=== PATIENT | female | born 1940 | race Caucasian/White ===

== ENCOUNTER 2016-12-07 17:06 | Inpatient (IN) | payer MEDICARE ==
[2016-12-07] MEDS ORDERED: Fentanyl 100 MCG/2 ML VIAL ONE (17:29)
[2016-12-07 18:37] LABS: #Basophils 0.1 thou/uL (0.0-0.2); #Eosinphils 0.3 thou/uL (0.0-0.7); #Lymphocytes 0.9 thou/uL (1.20-3.40); #Monocytes 0.5 thou/uL (0.11-0.59); #Neutrophils 4.8 thou/uL (1.40-6.50); %Basophils 0.9 % (0.0-1.0); %Eosinophils 4.3 % (0.0-10.0); %Lymphocytes 14.2 % (21.0-51.0); %Monocytes 6.9 % (0.0-10.0); Mean Platelet Volume 7.9 fL (7.4-10.4); Red Blood Cell (RBC) Count 4.34 mill/uL (4.20-5.40); White Blood Cell (WBC) Count 6.5 thou/uL (4.8-10.8)
[2016-12-07 18:53] LABS: ALT (SGPT) Less than 7 U/L (8-55); AST (SGOT) 13 U/L (5-34); Alkaline Phosphatase 133 U/L (40-150); Anion Gap 13 mmol/L (10-20); BUN (Urea Nitrogen) 14 mg/dL (9.8-20.1); Calc. Creatinine Clearance 0 mL/min (70-130); Calcium 8.9 mg/dL (7.8-10.44); Carbon Dioxide 31 mmol/L (23-31); Chloride 99 mmol/L (98-107); Estimated GFR-MDRD 87; Globulin 2.8 g/dL (2.4-3.5); Protein, Total 6.2 g/dL (6.0-8.3)
[2016-12-07] MEDS ORDERED: Bisacodyl 10 MG SUPP ONE (19:10)
[2016-12-07] MEDS ORDERED: Pot Chloride/Pot Bicarb/Cit Ac 25 mEq Effervescent Tablet ONE ×2 (19:11)
--- NOTE | 2016-12-07 19:20 | RAD ---
RADIOGRAPH PELVIS ONE VIEW: Date: 12-07-16 History: 76-year-old female with acute traumatic right hip pain due to fall. Comparison: 11-11-11 FINDINGS: There is a new, subtle finding of focal angulation at the lateral aspect of the right subcapital fem oral neck. The right femoral head contour is maintained. There is no dislocation. Left hip replaceme nt arthroplasty hardware is again noted. There is diffuse, somewhat severe osteopenia, and a large a mount of overlying bowel gas and stool which could result in a missed pelvic fracture, especially of the sacrum. No grossly displaced pelvic fracture is identified. There has been interval development of heterotopic ossification or myositis ossificans, along the lateral aspect of the left lateral fe moral stem prosthesis. IMPRESSION: 1. Acute, traumatic, minimally angulated subcapital fracture of the right femoral neck. 2. Old left hip replacement arthroplasty hardware. POS: [facility]
--- NOTE | 2016-12-07 19:23 | RAD ---
RADIOGRAPH RIGHT HIP TWO VIEWS: History: 76-year-old female with acute traumatic right hip pain after fall. FINDINGS: There is a subtle finding of focal minimal angulation at the junction between the right femoral head and femoral neck laterally. Femoral head contour is maintained. Hip joint space is maintained. Diff use osteopenia. No dislocation. IMPRESSION: Acute, traumatic, minimally angulated and minimally impacted subcapital fracture of right femoral ne ck. POS: [facility]
[2016-12-07] MEDS ORDERED: Morphine 2 MG/ML SYRINGE ONE ×2 (19:39→20:35)
[2016-12-07] MEDS ORDERED: Ondansetron HCl/PF 4 MG/2 ML Vial ONE (20:35)
[2016-12-07] MEDS ORDERED: Fleet Enema 133 ML BOT FS SCH (20:45)
[2016-12-07] MEDS ORDERED: Lidocaine Viscous Sol 2% 15 ml UD Cup ONE (20:57)
[2016-12-07] MEDS ORDERED: Dextrose 50% Abboject 50 ML SYRINGE SLOW IVP PRN (22:29)
[2016-12-07] MEDS ORDERED: Dextrose 5% in Water 1,000 ML IV PRN (22:29)
[2016-12-07] MEDS ORDERED: Ondansetron HCl/PF 4 MG/2 ML Vial IVP PRN (22:29)
[2016-12-07] MEDS ORDERED: HYDROcodone/Acetaminophen 10/325 mg Tablet PO PRN (22:29)
[2016-12-07] MEDS ORDERED: hydrALAZINE 20 MG/ML VIAL SLOW IVP PRN (22:29)
[2016-12-07] MEDS ORDERED: Ondansetron ODT 4 MG TAB PO PRN (22:29)
--- NOTE | 2016-12-07 22:35 | HP ---
DATE OF ADMISSION: 12/07/2016 REQUESTING PHYSICIAN: Dr. Pike. ATTENDING SURGEON: Dr. Wilder. CONSULTATIONS: Orthopedics, Dr. Scott. HISTORY OF PRESENT ILLNESS: The patient is a 76-year-old woman who has a history of Parki nson's who lives at home with her daughter and got up without assistance and fell landing on her rig ht hip. The patient had immediate pain and was unable to ambulate. The daughter brought the patien t to the emergency department. She underwent evaluation and examination and was noted to have a non displaced right femoral neck fracture at which time we were asked to evaluate the patient for admiss ion and obtain orthopedic consultation. ALLERGIES: IODINE, PENICILLIN and TESSALON PERLES. CURRENT MEDICATIONS: Carbidopa-levodopa, pramipexole, aspirin and lorazepam. PAST MEDICAL HISTORY: Diabetes controlled with diet, Parkinson's, CHF and STEMI. PAST SURGICAL HISTORY: Bladder suspension, tonsillectomy, hysterectomy, appendectomy and left hip r eplacement. SOCIAL HISTORY: No drug, alcohol or tobacco use. REVIEW OF SYSTEMS: Ten-point review of systems was negative, unless otherwise stated. PHYSICAL EXAMINATION: VITAL SIGNS: Blood pressure 142/69, heart rate 70, respirations 22, temperature is 98.3 and oxygen saturation is 99% on 2 liters via nasal cannula. GENERAL: The patient is lying in the emergency room bed. She will respond to verbal stimuli and wi ll answer very simple questions and follows simple directions. HEENT: Head is normocephalic and atraumatic. Eyes: Extraocular motion intact. PERRLA bilaterally . Ears are atraumatic without discharge. Nose is atraumatic without discharge. Oropharynx is ana maria r. NECK: Nontender. Trachea is midline. No JVD. CHEST: Clear to auscultation with moderate inspiratory and expiratory effort secondary to following my commands. The patient had tenderness to palpation to the left lateral ribs during my initial ex amination and upon reexamination she denied pain on that side. HEART: Regular rate and rhythm. ABDOMEN: Soft, flat and nontender. PELVIC: Stable with tenderness to palpation to the right hip. BACK: Atraumatic and nontender. EXTREMITIES: Neurovascularly intact x4 and patient is lying on her left side with her right hip armaan vated and flexed slightly at the hip. LABORATORY RESULTS: White blood cell count 6.5, hemoglobin 12.4, hematocrit 38 and platelets 223. Sodium 140, potassium 2.5, chloride 99, CO2 of 31, BUN 14, creatinine 0.66 and glucose 132. LFTs ar e unremarkable. RADIOGRAPHIC FINDINGS: AP pelvis shows an acute traumatic minimally angulated subcapital fracture o f the right femoral neck. Radiographs of the right hip again shows an acute traumatic minimally ang ulated and minimally impacted subcapital fracture of the right femoral neck. Chest x-ray is pending . ASSESSMENT AND PLAN: 1. Status post ground level fall. 2. Right femoral neck fracture. 3. Acute traumatic pain. 4. Hypokalemia. Plan will be to admit the patient to the surgical floor for pain control, pulmonary toilet, gastriti s prophylaxis, mechanical deep venous thrombosis prophylaxis and we will have the patient evaluated by Orthopedics in the morning for possible surgical intervention. Of note, the patient has a histor y of significant constipation, which showed on her AP pelvis that she had a large stool ball. The E R had administered one Fleet enema and was going to perform a disimpaction prior to her going to the floor. This may actually relieve some of her discomfort that she appears to have. The evaluation, examination, laboratory and radiographic findings were discussed with Dr. Wilder at time of dictatio n and he was in agreement with this plan. The plan was discussed with the patient's son and amol alexis who are the medical decision makers for the patient.
[2016-12-07] MEDS ORDERED: Senokot S 8.6-50 MG TAB PO SCH (22:45)
[2016-12-07] MEDS ORDERED: Famotidine 20 MG TAB PO SCH (22:45)
--- NOTE | 2016-12-07 22:55 | RAD ---
RADIOGRAPH CHEST 1 VIEW: HISTORY: 76-year-old female status post acute chest injury. FINDINGS: There is hyperinflation of the lungs, consistent with COPD. There is no evidence of air space densi ty, pneumothorax, or pulmonary edema. The lateral costophrenic angles are sharp. There is no cardio megaly or mediastinal widening. IMPRESSION: 1) No acute cardiopulmonary findings. 2) Emphysema. tamiko POS: [facility]
[2016-12-07] MEDS: Sodium Chloride 0.9% 1,000 ML IV SCH (23:19)
[2016-12-07] MEDS: Ketorolac Tromethamine 30 MG/ML VIAL IVP SCH (23:30)
[2016-12-08] MEDS ORDERED: Nitroglycerin 0.4 MG TAB (25 Tab Bottle) SL PRN (01:19)
[2016-12-08] MEDS ORDERED: Lorazepam 1 MG TAB PO PRN (01:19)
[2016-12-08 05:32] LABS: #Eosinphils 0.1 thou/uL (0.0-0.7); #Lymphocytes 0.8 thou/uL (1.20-3.40); #Monocytes 0.4 thou/uL (0.11-0.59); %Basophils 0.4 % (0.0-1.0); %Eosinophils 1.8 % (0.0-10.0); %Lymphocytes 10.7 % (21.0-51.0); %Monocytes 5.3 % (0.0-10.0); Hematocrit 34.1 % (36.0-47.0); Mean Platelet Volume 8.1 fL (7.4-10.4); Red Blood Cell (RBC) Count 3.85 mill/uL (4.20-5.40); White Blood Cell (WBC) Count 7.3 thou/uL (4.8-10.8)
[2016-12-08 05:34] LABS: PTT 28.1 SEC (22.9-36.1); Prothrombin Time 15.5 SEC (12.0-14.7)
[2016-12-08 05:55] LABS: Anion Gap 10 mmol/L (10-20); BUN (Urea Nitrogen) 16 mg/dL (9.8-20.1); Calc. Creatinine Clearance 54 mL/min (70-130); Calcium 8.5 mg/dL (7.8-10.44); Carbon Dioxide 30 mmol/L (23-31); Chloride 101 mmol/L (98-107); Estimated GFR-MDRD Greater than 90; Magnesium 1.7 mg/dL (1.6-2.6)
[2016-12-08] MEDS ORDERED: Potassium Chloride 40 MEQ in Sodium Chloride 0.9% 500 ML IVPB SCH (06:15)
[2016-12-08] MEDS ORDERED: Magnesium Sulfate 3 GM in Sodium Chloride 0.9% 100 ML IVPB SCH (06:15)
[2016-12-08] MEDS: Carbidopa/Levodopa 25-100 mg Tablet PO SCH ×5 (06:50→20:04)
[2016-12-08] MEDS: Ketorolac Tromethamine 30 MG/ML VIAL IVP SCH ×2 (06:51→11:19)
[2016-12-08] MEDS: Sodium Chloride 0.9% 1,000 ML IV SCH ×2 (07:51→15:55)
--- NOTE | 2016-12-08 08:59 | CON ---
DATE OF CONSULTATION: 12/08/2016 CHIEF COMPLAINT: Right hip pain. HISTORY OF PRESENT ILLNESS: Ms. Alvarado is a 76-year-old female with multiple medical problems incl uding Parkinson's disorder as well as coronary artery disease. She has fallen several times recentl y. I have treated her for a periprosthetic left proximal femur fracture. This was healing appropri ately. She was mobilizing with a walker. She lost her balance and fell yesterday. Her daughter armando ves her some assistance at home, but she does mobilize independently. She landed on her right side. She had immediate pain. She was unable to mobilize. She was taken to the emergency department wh ere x-rays demonstrated a nondisplaced femoral neck fracture of the right proximal femur. She has b een admitted to the hospital. She has been given pain control. Orthopedics was consulted for this injury. ALLERGIES: IODINE, PENICILLIN, and TESSALON PERLES. MEDICATIONS: Carbidopa/levodopa, aspirin, lorazepam and pramipexole. PAST MEDICAL HISTORY: Parkinson's disorder, diabetes, coronary artery disease, and CHF. PAST SURGICAL HISTORY: Bladder suspension, tonsillectomy, hysterectomy, appendectomy, and left hip arthroplasty for previous fracture. SOCIAL HISTORY: No drug or alcohol use. No tobacco use. REVIEW OF SYSTEMS: Positive for right hip pain, otherwise negative for 10 point review of systems. LABORATORY STUDIES: Potassium is 2.8, sodium was 138. Hemoglobin 11.2, hematocrit is 34.1. PHYSICAL EXAMINATION: GENERAL: The patient is alert, lying supine in no apparent distress. RESPIRATORY: Breathing comfortably. ABDOMEN: Soft, nontender, nondistended. HEENT: Normocephalic, atraumatic. MUSCULOSKELETAL: The patient's right hip has pain with motion. She is sitting with her hip in a fl exed posture. She has pain with log rolling. She does not flex and extend her foot and ankle. She has a weakly palpable dorsalis pedis pulse. IMAGES: X-rays of the right hip demonstrate a nondisplaced femoral neck fracture. IMPRESSION: Elderly female with multiple medical problems with an acute right femoral neck fracture , nondisplaced. PLAN: We had a long discussion with the patient and her family. At this point, we are leaning towa rds operative intervention to stabilize her fracture. This could be done with percutaneous screws t hrough a fairly minor procedure. She would need to be medically optimized. Her potassium needs to be corrected. She would need likely a Cardiology consultation as well to manage her chronic cardiac conditions. Alternatively, we could treat her nonoperatively with nonweightbearing. The risk of n onoperative treatment would be displacement of the fracture leading to the need for a more invasive procedure. We will discuss with the multiple specialists and continue to optimize the patient in pr eparation for percutaneous screw fixation. I will have further discussion with the patient later to day. She will remain n.p.o. for now. She has appropriate DVT prophylaxis.
[2016-12-08] MEDS ORDERED: Aspirin 325 mg Enteric Coated Tablet PO SCH (09:00)
[2016-12-08] MEDS: Senokot S 8.6-50 MG TAB PO SCH ×2 (09:30→20:04)
[2016-12-08] MEDS: Polyethylene Glycol 3350 17 GM Packet PO SCH (09:30)
[2016-12-08] MEDS: Famotidine 20 MG TAB PO SCH ×2 (09:30→20:04)
[2016-12-08] MEDS: Fludrocortisone Acetate 0.1 MG TAB PO SCH (09:30)
[2016-12-08 14:09] VITALS: BMI 17.0
[2016-12-08] MEDS ORDERED: Clindamycin/D5W 900 mg/50 ml Premix Bag ONE (15:09)
[2016-12-08] MEDS ORDERED: Levofloxacin 500 mg/D5W 100 ml Premix Bag ONE (15:09)
[2016-12-08] MEDS ORDERED: Morphine 2 MG/ML SYRINGE ONE ×2 (15:14→15:42)
[2016-12-08] MEDS ORDERED: Fentanyl 100 MCG/2 ML VIAL ONE (15:19)
[2016-12-08] MEDS ORDERED: Midazolam HCl 2 mg/2 ml Vial ONE (15:19)
[2016-12-08] MEDS ORDERED: Phenylephrine 10 MG/NS 250 ML 0 ML ONE (15:34)
[2016-12-08 15:45] LABS: Anion Gap 12 mmol/L (10-20); BUN (Urea Nitrogen) 13 mg/dL (9.8-20.1); Calc. Creatinine Clearance 57 mL/min (70-130); Calcium 8.6 mg/dL (7.8-10.44); Carbon Dioxide 29 mmol/L (23-31); Chloride 106 mmol/L (98-107); Estimated GFR-MDRD Greater than 90
[2016-12-08] MEDS: Pramipexole Di-HCl 1 MG TAB PO SCH ×2 (15:54→20:03)
[2016-12-08] MEDS ORDERED: Propofol 200 MG/20 ML VIAL ONE (15:56)
[2016-12-08] MEDS ORDERED: Bupivacaine 0.25% HCL 30 ML VIAL ONE (16:08)
[2016-12-08] MEDS ORDERED: Ondansetron HCl/PF 4 MG/2 ML Vial IVP PRN (16:28)
[2016-12-08] MEDS: Morphine 2 MG/ML SYRINGE SLOW IVP PRN ×2 (18:14→20:21)
[2016-12-08] MEDS: HYDROcodone/Acetaminophen 10/325 mg Tablet PO PRN (22:01)
--- NOTE | 2016-12-08 22:06 | OP ---
DATE OF OPERATION: 12/08/2016 OPERATION: Percutaneous screw fixation of right femoral neck fracture. PREOPERATIVE DIAGNOSIS: Right femoral neck fracture. POSTOPERATIVE DIAGNOSIS: Right femoral neck fracture. COMPLICATIONS: None. ESTIMATED BLOOD LOSS: Minimal. SURGEON: Juvencio Cordero M.D. ANESTHESIA: Regional, plus sedation. INDICATIONS: Ms. Alvarado is a 76-year-old female who has fallen. She sustained a fracture of the r ight femoral neck. She has been indicated for closed reduction and percutaneous screw fixation of t he femoral neck to stabilize the bone and allow healing. Goal of surgery is to mobilize the patient out of bed and prevent complications of prolonged bed rest. DESCRIPTION OF PROCEDURE: Ms. Alvarado was identified in the preoperative holding area. Her correct extremity was marked. She was carried to the operating room. She was positioned supine. General anesthesia was induced. A multidisciplinary timeout was performed. The right lower extremity was p repped and draped in sterile fashion. We began the procedure by evaluating the patient's fracture under intraoperative x-ray. We pulled g entle traction. At this point, once we had good alignment, we made a 2-cm incision over the lateral thigh. We then inserted a guidewire in the inferior aspect of the femoral head, centered in the la teral view. We placed 2 additional guidewires proximal to this deformity inverted triangle pattern. We took x-ray images confirming guidewire placement. We measured our guidewires. At this point, we placed three 7.3 mm partially threaded cannulated screws into the femoral head. At this point, w e took final x-ray images. We then thoroughly irrigated and closed our small wounds with 2-0 Vicryl and alber. A sterile dressing was applied. The patient was taken to recovery room in good condi tion without complication.
[2016-12-09] MEDS: Sodium Chloride 0.9% 1,000 ML IV SCH ×2 (03:29→04:04)
[2016-12-09] MEDS: Carbidopa/Levodopa 25-100 mg Tablet PO SCH ×5 (05:20→20:49)
[2016-12-09] MEDS: HYDROcodone/Acetaminophen 10/325 mg Tablet PO PRN (05:21)
[2016-12-09 06:28] LABS: #Eosinphils 0.4 thou/uL (0.0-0.7); #Monocytes 0.3 thou/uL (0.11-0.59); #Neutrophils 4.6 thou/uL (1.40-6.50); %Basophils 0.3 % (0.0-1.0); %Eosinophils 6.8 % (0.0-10.0); %Lymphocytes 15.2 % (21.0-51.0); %Monocytes 5.1 % (0.0-10.0); Hematocrit 33.6 % (36.0-47.0); Mean Platelet Volume 8.7 fL (7.4-10.4); Red Blood Cell (RBC) Count 3.75 mill/uL (4.20-5.40); White Blood Cell (WBC) Count 6.4 thou/uL (4.8-10.8)
[2016-12-09 06:48] LABS: Anion Gap 10 mmol/L (10-20); BUN (Urea Nitrogen) 13 mg/dL (9.8-20.1); Calc. Creatinine Clearance 53 mL/min (70-130); Calcium 8.6 mg/dL (7.8-10.44); Carbon Dioxide 30 mmol/L (23-31); Chloride 103 mmol/L (98-107); Estimated GFR-MDRD 90; Magnesium 1.9 mg/dL (1.6-2.6); Phosphorus 2.9 mg/dL (2.3-4.7)
--- NOTE | 2016-12-09 07:04 | PRG-2 ---
DATE OF SERVICE: 12/08/2016 DATE OF ADMISSION: 12/07/2016 SUBJECTIVE: This is a 76-year-old patient that fell at home on her right hip and found to have a right hip fracture and plan for her is to go to surgery today. She is doing well. Pain is being well controlled. No other concerns or complaints at this time. PHYSICAL EXAMINATION: VITAL SIGNS: Temperature is 97.8, pulse 63, respirations 16, O2 sat 100% on 2 liters, blood pressure 151/73. GENERAL: The patient is lying in her bed, resting comfortably. LUNGS: Chest is clear to auscultation with nonlabored breathing. No tenderness to palpation on the left lateral ribs. HEART: Regular rate and rhythm with no murmurs or gallops. ABDOMEN: Soft, flat, nontender. EXTREMITIES: Neurovascularly intact x4 and able to move all extremities. NEUROLOGIC: No focal neuro deficit. LABORATORY DATA: White blood cell count of 7.3, hemoglobin 11.2, hematocrit 34.1, and platelet count is 214. PT was 13.5, INR was 1.2, PTT was 28.1. Sodium was 143, potassium was 3.5, chloride was 106, carbon dioxide was 29, BUN was 13, creatinine was 0.60, glucose was 92, and calcium was 8.6. ASSESSMENT AND PLAN: 1. Status post ground level fall. 2. Right femoral neck fracture. 3. Acute traumatic pain. 4. Hypokalemia, resolved. PLAN: Orthopedic Surgery has been consulted. Plan for her is to go to surgery today for repair. We will consult PT and OT and rehab screening accordingly. Further work with her postop will manage her pain post op and make sure she is tolerating pain well. We will continue to monitor vital signs and will recheck labs as needed and replace as needed. The patient was seen and plan of care was discussed with Dr. Gregorio Wilder. DONA
[2016-12-09] MEDS ORDERED: Lorazepam 0.5 MG TAB PO PRN ×3 (07:44→08:47)
--- NOTE | 2016-12-09 08:24 | RAD ---
RIGHT HIP: History: Intraoperative imaging during fixation of hip fracture. FINDINGS/IMPRESSION: Two fluoroscopic views obtained in OR. There are three screws transfixing the femoral neck fracture. POS: [facility]
[2016-12-09] MEDS ORDERED: Potassium Phosphate 30 MMOL, Magnesium Sulfate 3 GM in Sodium Chloride 0.9% 250 ML 250 ML IVPB SCH (09:00)
[2016-12-09] MEDS: Lorazepam 1 MG TAB PO PRN (09:12)
[2016-12-09] MEDS ORDERED: traMADol HCl 50 MG TAB PO PRN (09:26)
[2016-12-09] MEDS: Polyethylene Glycol 3350 17 GM Packet PO SCH (09:40)
[2016-12-09] MEDS: Fludrocortisone Acetate 0.1 MG TAB PO SCH (09:41)
[2016-12-09] MEDS: Famotidine 20 MG TAB PO SCH ×2 (09:41→20:49)
[2016-12-09] MEDS: Senokot S 8.6-50 MG TAB PO SCH ×2 (09:41→20:49)
[2016-12-09] MEDS: traMADol HCl 50 MG TAB PO SCH ×3 (10:07→18:07)
--- NOTE | 2016-12-09 11:26 | PRG-2 ---
DATE OF SERVICE: 12/09/2016 SUBJECTIVE: Ms. Alvarado is a 76-year-old female status post fall at home and found to have a right hip fracture and status post repair day #1. The patient is resting in bed, is a little uncomfortabl e, not responding fully to questions at this time, not quite alert and oriented, but she does seem t o be in pain. Does report being in pain and pain not being adequately controlled. She has no other concerns or complaints at this time. PHYSICAL EXAMINATION: VITAL SIGNS: Temperature is 98.2, pulse of 81, respirations 22, O2 sat 95% on 2 liters, blood press ure is 120/68. GENERAL: She is not alert, and oriented, does appear to be in some pain. LUNGS: Chest clear to auscultation. Nonlabored breathing. No tenderness to palpation. CARDIOVASCULAR: Heart regular rate and rhythm. ABDOMEN: Soft, flat, nontender. No masses or distention. EXTREMITIES: Neurovascularly intact x4. Able to move all extremities. NEUROLOGIC: No focal neuro deficit. LABORATORY DATA: White blood cell count 6.4, hemoglobin 10.9, hematocrit 33.6, platelet count is 16 6. Sodium is 140, potassium 3.4, chloride 103, carbon dioxide 30, BUN 13, creatinine 0.64, glucose 93, calcium is 8.6, phosphorus 2.9 and magnesium is 1.9. New images to review at this time. ASSESSMENT AND PLAN: 1. Status post ground level fall. 2. Right femoral neck fracture, postop day #1 of repair. 3. Acute traumatic pain. 4. Hypokalemia. Due to the patient being in some pain. We have put her on scheduled Tylenol, put her on scheduled t ramadol and put tramadol on for breakthrough pain with the trauma pain regimen and will continue to monitor pain and adjust as needed. Due to potassium being a little low we will give her some K-phos and give her some magnesium and will continue to have her work with PT and OT and will await place ent for her. The patient was seen and plan of care was discussed with Dr. Gregorio Wilder.
[2016-12-09] MEDS ORDERED: Carbidopa/Levodopa 25-100 mg Tablet PO SCH (12:00)
[2016-12-09] MEDS: Acetaminophen 500 MG TAB PO SCH ×2 (12:10→18:06)
[2016-12-09] MEDS: Pramipexole Di-HCl 1 MG TAB PO SCH ×2 (15:05→20:49)
[2016-12-09] MEDS ORDERED: Pramipexole Di-HCl 1 MG TAB PO SCH (21:00)
[2016-12-10] MEDS: traMADol HCl 50 MG TAB PO SCH ×2 (00:05→06:20)
[2016-12-10] MEDS: Acetaminophen 500 MG TAB PO SCH ×5 (00:05→23:43)
[2016-12-10] MEDS: Lorazepam 1 MG TAB PO PRN ×2 (01:06→07:29)
[2016-12-10] MEDS: Carbidopa/Levodopa 25-100 mg Tablet PO SCH ×5 (06:20→20:53)
[2016-12-10] MEDS ORDERED: Bisacodyl 10 MG SUPP PR SCH (08:30)
[2016-12-10] MEDS ORDERED: Fludrocortisone Acetate 0.1 MG TAB PO SCH (09:00)
[2016-12-10] MEDS ORDERED: Pramipexole Di-HCl 1 MG TAB PO SCH (09:00)
[2016-12-10] MEDS: Senokot S 8.6-50 MG TAB PO SCH ×2 (09:26→20:53)
[2016-12-10] MEDS: Famotidine 20 MG TAB PO SCH ×2 (09:26→20:53)
[2016-12-10] MEDS: Polyethylene Glycol 3350 17 GM Packet PO SCH (09:26)
[2016-12-10] MEDS: Fludrocortisone Acetate 0.1 MG TAB PO SCH (09:26)
[2016-12-10] MEDS ORDERED: traMADol HCl 50 MG TAB PO PRN (10:08)
[2016-12-10] MEDS ORDERED: Lorazepam 1 MG TAB PO PRN (10:31)
[2016-12-10] MEDS: Pramipexole Di-HCl 1 MG TAB PO SCH ×2 (14:49→20:53)
[2016-12-10] MEDS ORDERED: hydrALAZINE 10 MG TAB PO SCH (16:00)
[2016-12-10] MEDS: traMADol HCl 50 MG TAB PO PRN ×2 (16:17→23:43)
[2016-12-10] MEDS ORDERED: Lorazepam 1 MG TAB PO SCH ×2 (19:00→21:00)
[2016-12-11] MEDS: Carbidopa/Levodopa 25-100 mg Tablet PO SCH ×2 (07:25→11:11)
[2016-12-11] MEDS: Acetaminophen 500 MG TAB PO SCH ×2 (07:28→11:33)
[2016-12-11] MEDS ORDERED: Amlodipine 5 MG TAB PO SCH (09:00)
[2016-12-11] MEDS: Famotidine 20 MG TAB PO SCH (11:12)
[2016-12-11] MEDS: Senokot S 8.6-50 MG TAB PO SCH (11:12)
[2016-12-11] MEDS: Fludrocortisone Acetate 0.1 MG TAB PO SCH (11:13)
[2016-12-11] MEDS: Polyethylene Glycol 3350 17 GM Packet PO SCH (11:13)
[2016-12-11 12:51] VITALS: BP 172/83; TEMP 98.5
== END 2016-12-11 15:50 | disposition home health service (06) | DRG 482 ==
LOC: ERS 17:06 → ERHOLD 19:20 → SURG A 22:24
PROVIDERS: ADMIT Surgery; ATTEND Surgery
PROC: 0QS634Z Reposition Right Upper Femur with Internal Fixation Device, Percutaneous Approach (ICD-10-PCS; principal; 2016-12-08)
DX: S72.011A Unspecified intracapsular fracture of right femur, initial encounter for closed fracture (principal); G20 Parkinson's disease; I50.9 Heart failure, unspecified; E11.9 Type 2 diabetes mellitus without complications; R29.6 Repeated falls; W01.0XXA Fall on same level from slipping, tripping and stumbling without subsequent striking against object, initial encounter; Z91.81 History of falling; Z96.642 Presence of left artificial hip joint; Z87.81 Personal history of (healed) traumatic fracture; I25.2 Old myocardial infarction; E87.6 Hypokalemia; K59.00 Constipation, unspecified; I25.10 Atherosclerotic heart disease of native coronary artery without angina pectoris
CPT/HCPCS: 36415; 71010; 72170; 76001; 80048; 80053; 83735; 84100; 85025; 85610; 85730; 93005; 96374; 96375; 96376; C1713; C1769; G8978-GP-CM; G8979-GP-CK; G8987-GO-CN; G8988-GO-CL; G8996-GN-CL; G8997-GN-CK; J1885; J1956; J2250; J2270; J2405; J2704; J3010; J3475; J3480; J3490; J7050; S0020

== ENCOUNTER 2016-12-15 02:43 | Inpatient (IN) | payer MEDICARE ==
[2016-12-15 03:33] LABS: #Eosinphils 0.1 thou/uL (0.0-0.7); #Lymphocytes 1.4 thou/uL (1.20-3.40); #Monocytes 0.2 thou/uL (0.11-0.59); #Neutrophils 4.8 thou/uL (1.40-6.50); %Eosinophils 1.1 % (0.0-10.0); %Lymphocytes 21.2 % (21.0-51.0); %Monocytes 3.7 % (0.0-10.0); Hematocrit 40.2 % (36.0-47.0); Red Blood Cell (RBC) Count 4.47 mill/uL (4.20-5.40); White Blood Cell (WBC) Count 6.5 thou/uL (4.8-10.8)
[2016-12-15 03:39] LABS: PTT 24.9 SEC (22.9-36.1); Prothrombin Time 13.7 SEC (12.0-14.7)
[2016-12-15 03:47] LABS: Lactic Acid - Sepsis 1.6 mmol/L (0.5-2.2)
[2016-12-15 03:58] LABS: Troponin I 0.099 ng/mL (< 0.028)
[2016-12-15 04:01] LABS: ALT (SGPT) 8 U/L (8-55); AST (SGOT) 88 U/L (5-34); Alkaline Phosphatase 130 U/L (40-150); Anion Gap 12 mmol/L (10-20); BUN (Urea Nitrogen) 41 mg/dL (9.8-20.1); Bilirubin, Total 1.6 mg/dL (0.2-1.2); CK (CPK) 2580 U/L (29-168); Calc. Creatinine Clearance 0 mL/min (70-130); Calcium 9.4 mg/dL (7.8-10.44); Carbon Dioxide 35 mmol/L (23-31); Chloride 98 mmol/L (98-107); Estimated GFR-MDRD 60; Globulin 3.7 g/dL (2.4-3.5); Lipase 18 U/L (8-78); Protein, Total 7.8 g/dL (6.0-8.3)
[2016-12-15] MEDS ORDERED: Enoxaparin Sodium 40 MG/0.4 ML SYRINGE ONE (04:24)
[2016-12-15] MEDS ORDERED: Nitroglycerin 2% Ointment 1 INCH/1 GM Packet ONE (04:24)
[2016-12-15] MEDS ORDERED: Ondansetron ODT 4 MG TAB SL PRN (06:18)
[2016-12-15] MEDS ORDERED: HYDROcodone/Acetaminophen 5/325 mg Tablet PO PRN ×2 (06:18)
[2016-12-15] MEDS ORDERED: Ondansetron HCl/PF 4 MG/2 ML Vial IVP PRN (06:18)
[2016-12-15] MEDS ORDERED: Sodium Chloride 0.9% 1,000 ML IV SCH (06:18)
[2016-12-15] MEDS ORDERED: Acetaminophen 325 MG TAB PO PRN (06:18)
[2016-12-15 06:32] LABS: Troponin I 0.078 ng/mL (< 0.028)
[2016-12-15 07:02] VITALS: BMI 15.7
[2016-12-15] MEDS ORDERED: hydrALAZINE 20 MG/ML VIAL SLOW IVP PRN (08:16)
[2016-12-15] MEDS ORDERED: Dextrose 50% Abboject 50 ML SYRINGE SLOW IVP PRN (08:16)
[2016-12-15] MEDS ORDERED: Labetalol HCl 100 MG/20 ML VIAL SLOW IVP PRN (08:16)
[2016-12-15] MEDS ORDERED: Lorazepam 1 MG TAB PO PRN (08:16)
[2016-12-15] MEDS ORDERED: Dextrose 5% in Water 1,000 ML IV PRN (08:16)
[2016-12-15] MEDS ORDERED: Mag-Al 1200 mg/1200 mg/30 ML UDCUP PO PRN (08:16)
[2016-12-15] MEDS ORDERED: Senokot 8.6 MG TAB PO PRN (08:16)
[2016-12-15] MEDS ORDERED: Milk Of Magnesia 30 ML UDCUP PO PRN (08:16)
[2016-12-15] MEDS ORDERED: HumaLOG 300 UNITS/3 ML VIAL SC PRN (08:16)
[2016-12-15] MEDS ORDERED: Loperamide HCl 2 MG CAP PO PRN (08:16)
--- NOTE | 2016-12-15 08:53 | RAD ---
1 VIEW CHEST: Date: 12/15/16 COMPARISON: 09/15/16. HISTORY: Altered mental status. FINDINGS: Atherosclerosis of aorta. Normal cardiac silhouette. Pulmonary vessels and hilum are normal. Costoph renic angles are clear. Chronic changes, without consolidation or mass. No pneumothorax or osseous a bnormalities. IMPRESSION: 1. No acute cardiopulmonary process. 2. Atherosclerosis POS: [facility]
[2016-12-15] MEDS ORDERED: Aspirin 325 MG TAB PO SCH (09:00)
--- NOTE | 2016-12-15 09:02 | HP ---
DATE OF ADMISSION: 12/15/2016 PRIMARY CARE PHYSICIAN: Dr. Jj Perez REASON FOR ADMISSION: Aches and pains all over. HISTORY OF PRESENT ILLNESS: This is a 76-year-old white female with past medical history of Ryan on's disease, CHF, type 2 diabetes on diet control, TIA and recent hip surgery, was brought to the [facility] with aches and pains. The patient was recently discharged late last week to home with home health and was having physical therapy. She was not eating very well during the hospitalization and the initial days at home, but she started eating in the last few days, but started having some ache s at 2:00 a.m. at home and her daughter brought her to the ER. The patient mainly complained of arm pain and chest pain and she was also found to have elevated CK level. As per the daughter, the pat ient started hydrating her well. The patient denies any chest pain. She complains of chest pain, o nly mild 1/10, with no radiation, no arm pain, no pain anywhere else. No nausea, no vomiting, no ab dominal pain reported. Patient was constipated, but had a BM yesterday. No fever or chills. No sk in rash. No sick contacts at home. No cough, no sinus drainage, no headache reported. No dizzines s. The patient was found to have high blood pressure when she came to the hospital in the ER, but s he usually runs low. She actually takes Florinef to keep her blood pressure up, but not been taking it for the last few days. PAST MEDICAL HISTORY: Positive for Parkinson's disease, CHF, diabetes on diet control, TIA, osteoar thritis, anxiety, depression, coronary artery disease with no stents. PAST SURGICAL HISTORY: Appendectomy, hysterectomy, bilateral hip replacement, cardiac catheterizati on, bladder suspension surgery, tonsillectomy. HOME MEDICATIONS: Include pramipexole, Levaquin for 4 more days, Ultram, aspirin 325 mg daily, Tyle nol, Sinemet, lorazepam, Pepcid, amlodipine 5 mg p.o. daily, polyethylene glycol, lorazepam. ALLERGIES: PENICILLIN, TESSALON PERLES and RED DYE. SOCIAL HISTORY: No smoking, alcohol or illicit drug abuse. She lives at home with her daughter. FAMILY HISTORY: No history of any heart disease reported. REVIEW OF SYSTEMS: The following complete review of systems was negative, unless otherwise mentioned in the HPI or below: Constitutional: Weight loss or gain, ability to conduct usual activities. Skin: Rash, itching. Eyes: Double vision, pain. ENT/Mouth: Nose bleeding, neck stiffness, pain, tenderness. Cardiovascular: Palpitations, dyspnea on exertion, orthopnea. Respiratory: Shortness of breath, wheezing, cough, hemoptysis, fever or night sweats. Gastrointestinal: Poor appetite, abdominal pain, heartburn, nausea, vomiting, constipation, or diarrhea. Genitourinary: Urgency, frequency, dysuria, nocturia. Musculoskeletal: Pain, swelling. Neurologic/Psychiatric: Anxiety, depression. Allergy/Immunologic: Skin rash, bleeding tendency. PHYSICAL EXAMINATION: GENERAL: This is an elderly female in no apparent distress. Daughter at the bedside. VITAL SIGNS: Temperature 97.8, pulse 50, respiratory 18, blood pressure 124/56. HEENT: Atraumatic, normocephalic. Oral mucosa is moist. NECK: Supple. HEART: S1, S2 heard. Rate and rhythm regular. RESPIRATORY: Clear. Scattered crackles. ABDOMEN: Soft. MUSCULOSKELETAL: No tenderness. No edema. DERMATOLOGIC: No skin rash, no bruises. NEUROLOGIC: Alert, awake, moving all the extremities. PSYCHIATRIC: Mood and affect normal. LABORATORY DATA: Hemoglobin is 13.1. WBC 6.5. INR is 1.0, potassium 3.0, BUN 41, creatinine 0.9, albumin is 4.1. Troponin was 0.09 and 0.7 repeat. CK level was 2580. ASSESSMENT AND PLAN: 1. Generalized weakness with aches and pains, most likely from elevated CK and possible slight volu me depletion. The patient was started on IV fluids. She is already feeling better, no more chest p ain reported. I do not think this is cardiac related, but the patient will be monitored. If she st arts having chest pain of if the troponin gets elevated, I will check cardiac workup. The patient was hypokalemic also which could contribute to aches and pains. Repeat EKG also showed no changes. 2. Hypokalemia. We will replace. The patient will be on potassium twice a day. Repeat labs in th e morning. 3. Alkalosis, most likely from volume depletion. 4. Elevated BUN with azotemia, no uremia. We will start IV fluids cautiously given her cardiac sta tus and history of congestive heart failure. 5. Parkinson's disease. We will continue on home medication. We will hold Florinef for now. 6. Hypertension. The patient was hypertensive when she came to the hospital, most likely from anxi ety. We will use p.r.n. medications and treat her blood pressure. We will hold amlodipine also. 7. History of congestive heart failure. We will be cautious with IV fluids 8. Type 2 diabetes. Will have sliding scale insulin. The patient is diet controlled. Will have r egular soft diet here. 9. Anxiety, depression. Continue home medications. 10. Code status is full. Her medical power of patent prosecution attorney is Evelyn Alvarado, her phone number is [phone]. 11. Selected home medications. 12. P.r.n. order set. 13. Gastrointestinal/deep thrombosis prophylaxis. Continue Lovenox. 14. Recent hip surgery. Patient will continue on antibiotics for 4 more days that she was supposed to take at home. 15. Elevated AST. All the lab work shows it is probably a little dehydrated with elevated CK, elev ated liver enzymes and alkalosis. We will continue IV fluids at 75 mL per hour. Will have close mo nitor and repeat labs. Expected stay in the hospital 1-2 days. The above plan was discussed with the patient and her daughter at the bedside and they voiced unders tanding and all the questions and concerns were addressed at this point.
--- NOTE | 2016-12-15 09:23 | CT ---
PRELIMINARY REPORT/[facility]/EMERGENCY AFTER HOURS PROCEDURE: EXAM: CT Head Without Intravenous Contrast EXAM DATE/TIME: Exam ordered 12/15/2016 3:38 AM CLINICAL HISTORY: 76 years old, female; Pain and signs and symptoms; Altered mental status/memory loss; Headache; Nyla ent HX: 76 yo f with pmhx mi x1 year ago and TIA presents to ed C/O chest pain and SOB that woke pt from sleep at 0200 this am. Also reports l arm pain, headache, and nonproductive cough. Family repor ts pt was unable to move from bed this morning. TECHNIQUE: Axial computed tomography images of the head/brain without intravenous contrast. COMPARISON: No relevant prior studies available. FINDINGS: Brain: Volume loss and chronic small vessel ischemic change. No hemorrhage. Ventricles: Unremarkable. No ventriculomegaly. Bones/joints: Unremarkable. No acute fracture. Soft tissues: Unremarkable. Sinuses: Minimal mucous in the right sphenoid sinus. Mastoid air cells: Unremarkable as visualized. No mastoid effusion. IMPRESSION: No acute findings. Thank you for allowing us to participate in the care of your patient. Dictated and Authenticated by: Juan José Hobbs MD 12/15/2016 3:46 AM Central Time ([place] \T\ [place]) FINAL REPORT CT BRAIN WITHOUT CONTRAST: Date: 12/15/16 FINDINGS/IMPRESSION: I agree with the preliminary report given by Dr. Juan José Hobbs of [facility]. Comparison was made with exam of 09/10/16. POS: [facility]
[2016-12-15] MEDS: Sodium Chloride 0.9% 1,000 ML IV SCH ×2 (09:43→17:41)
[2016-12-15] MEDS: Famotidine 20 MG TAB PO SCH ×2 (09:45→20:32)
[2016-12-15] MEDS: Amlodipine 5 MG TAB PO SCH (09:46)
[2016-12-15] MEDS: Enoxaparin Sodium 30 MG/0.3 ML SYRINGE SC SCH (09:47)
[2016-12-15] MEDS: Carbidopa/Levodopa 25-100 mg Tablet PO SCH ×3 (11:02→18:35)
[2016-12-15] MEDS ORDERED: ALPRAZolam 0.5 MG TAB PO SCH (13:00)
[2016-12-15] MEDS ORDERED: Pramipexole Di-HCl 1 MG TAB PO SCH ×2 (15:00→22:30)
[2016-12-15] MEDS ORDERED: Potassium Chloride 20 MEQ TAB PO SCH (17:00)
[2016-12-15] MEDS: Pramipexole Di-HCl 1 MG TAB PO SCH (18:35)
[2016-12-15] MEDS ORDERED: Carbidopa/Levodopa 25-100 mg Tablet PO SCH (22:30)
[2016-12-16] MEDS: Lorazepam 0.5 MG TAB PO PRN ×2 (00:17→16:11)
[2016-12-16] MEDS: ALPRAZolam 0.5 MG TAB PO PRN ×2 (02:38→21:57)
[2016-12-16 06:01] LABS: Anion Gap 6 mmol/L (10-20); BUN (Urea Nitrogen) 17 mg/dL (9.8-20.1); CK (CPK) 790 U/L (29-168); Calc. Creatinine Clearance 55 mL/min (70-130); Carbon Dioxide 32 mmol/L (23-31); Chloride 107 mmol/L (98-107); Estimated GFR-MDRD Greater than 90; Magnesium 1.8 mg/dL (1.6-2.6)
[2016-12-16 06:04] LABS: Troponin I 0.043 ng/mL (< 0.028)
[2016-12-16] MEDS: Sodium Chloride 0.9% 1,000 ML IV SCH (06:14)
[2016-12-16] MEDS ORDERED: Potassium Chloride 20 MEQ TAB PO SCH (07:49)
[2016-12-16] MEDS ORDERED: Potassium Chloride 40 MEQ, Admixture Fee 1 EACH in Sodium Chloride 0.9% 250 ML 250 ML IVPB SCH (08:00)
[2016-12-16] MEDS ORDERED: Potassium Chloride 40 MEQ in Premix Bag 1 BAG IVPB SCH (08:00)
[2016-12-16] MEDS: Enoxaparin Sodium 30 MG/0.3 ML SYRINGE SC SCH (09:18)
[2016-12-16] MEDS: Potassium Chloride 20 MEQ TAB PO SCH ×2 (09:18→16:11)
[2016-12-16] MEDS: Amlodipine 5 MG TAB PO SCH (09:19)
[2016-12-16] MEDS: Famotidine 20 MG TAB PO SCH ×2 (09:20→21:54)
[2016-12-16] MEDS: Carbidopa/Levodopa 25-100 mg Tablet PO SCH ×4 (09:21→18:41)
--- NOTE | 2016-12-16 12:02 | PQF ---
Date: 12-16-16 ATTN: DR. SADE AMIN Please exercise your independent, professional judgment in responding to the clarification form. Clinical indicators are provided on the bottom of this form for your review Please check appropriate box(s): [ ] Protein Calorie Malnutrition: [ X ] Mild [ ] Moderate [ ] Severe [ ] Cachexia [ ] Other diagnosis [ ] Unable to determine In addition, please specify: Present on Admission (POA): [ ] Yes [ ] No [ ] Unable to determine CLINICAL INDICATORS - SIGNS / SYMPTOMS / LABS BMI of 15.7 [employer]PER[employer] CONSULT 12-15-16: PT HAD SURGERY 1 WEEK AGO 2' HIP FRACTURE, AND SINCE THEN SHE HAS NOT HAD MUCH OF AN APPETITE, PT REPORTS SHE USUALLY WEIGHS 117-120 #, BUT HAS LOST WT RECENTLY. PT NOTED TO BE 94#. PT HAS LOST 23# IB LAST FEW WKS. RISK FACTORS: [facility] [employer]PERATOR CONSULT 12-15-16: PT HAD SURGERY 1 WEEK AGO 2' HIP FRACTURE, AND SINCE THEN SHE HAS NOT HAD MUCH OF AN APPETITE, PT REPORTS SHE USUALLY WEIGHS 117-120#, BUT HAS LOST WT RECENTLY. PT NOTED TO BE 94#. PT HAS LOST 23# IB LAST FEW WKS. TREATMENT: [facility] FOLD OPERATOR CONSULT 12-15-16: GLUCERSHAUN WHITMORE TID, 1800KCAL CONSISTENT CARB, LOW SODIUM DIET (This form is maintained as a part of the permanent medical record) 2014 [employer], [employer] you [employer]?. All Rights Reserved [email or web address] Office: [phone] [facility]
--- NOTE | 2016-12-16 12:09 | EKG ---
Test Reason : Blood Pressure : / mmHG Vent. Rate : 038 BPM Atrial Rate : 038 BPM P-R Int : 108 ms QRS Dur : 088 ms QT Int : 464 ms P-R-T Axes : 048 055 049 degrees QTc Int : 369 ms Marked sinus bradycardia with PAC's with Abberant conduction short pr Abnormal ECG When compared with ECG of 15-DEC-2016 02:49, (Unconfirmed) Fusion complexes are no longer Present Premature ventricular complexes are no longer Present Abberant conduction is now Present T wave inversion no longer evident in Inferior leads QT has lengthened Confirmed by DR. Suman AMARO ([id number]) on 12/16/2016 12:08:59 PM Referred By: BRENNAN Confirmed By:DR. Suman AMARO
--- NOTE | 2016-12-16 13:36 | PDOC.PN ---
- Subjective Encounter Start Date: 12/16/16 Encounter Start Time: 13:35 Patient seen and examined. No new complaints. No overnight events. feels better daughters at bedside and assisting in feeding. No N/V. wants to go home. - Objective Resuscitation Status: Resuscitation Status FULL:Full Resuscitation MAR Reviewed: Yes Vital Signs & Weight: Vital Signs (12 hours) Temp Pulse Resp BP BP Pulse Ox 12/16/16 11:35 96.7 F L 51 L 18 145/65 H 97 12/16/16 09:19 54 L 135/60 12/16/16 08:00 97 F L 54 L 16 12/16/16 07:20 97 F L 54 L 16 135/60 95 12/16/16 05:22 97.1 F L 56 L 17 136/62 94 L Weight Admit Weight 94 lb 6.4 oz Weight 94 lb 6.4 oz I&O: 12/15/16 12/16/16 12/17/16 06:59 06:59 06:59 Intake Total 3112 480 Balance 3112 480 Result Diagrams: 12/15/16 02:58 12/16/16 05:22 Additional Labs: Accuchecks 12/16/16 12/16/16 12/15/16 11:33 06:12 20:30 POC Glucose 147 H 99 157 H Phys Exam - Physical Examination Constitutional: NAD HEENT: sclera anicteric Neck: supple Respiratory: no wheezing, no rales bradycardic Gastrointestinal: soft Musculoskeletal: no edema Neurological: non-focal, moves all 4 limbs Psychiatric: normal affect, A&O x 3 Skin: no rash, normal turgor Dx/Plan (1) Weakness Code(s): R53.1 - WEAKNESS Status: Acute (2) Bradycardia Code(s): R00.1 - BRADYCARDIA, UNSPECIFIED Status: Acute (3) Hypokalemia Code(s): E87.6 - HYPOKALEMIA Status: Acute (4) Protein-calorie malnutrition, mild Code(s): E44.1 - MILD PROTEIN-CALORIE MALNUTRITION Status: Chronic - Plan cont current plan of care, plan discussed w/ family, PT/OT, DVT proph w/lovenox * . stop IV fluids Advance diet. f/u with SW cardio for HR. replete K and Mg. Recheck labs in AM Home in AM.
[2016-12-16] MEDS: Pramipexole Di-HCl 1 MG TAB PO SCH (16:12)
[2016-12-16] MEDS: Acetaminophen 325 MG TAB PO PRN ×2 (18:40→23:09)
[2016-12-16 19:37] LABS: Magnesium 1.9 mg/dL (1.6-2.6)
[2016-12-16] MEDS ORDERED: Carbidopa/Levodopa 25-100 mg Tablet PO SCH (21:00)
[2016-12-16] MEDS ORDERED: Pramipexole Di-HCl 1 MG TAB PO SCH (21:00)
[2016-12-17 05:05] LABS: Anion Gap 7 mmol/L (10-20); BUN (Urea Nitrogen) 11 mg/dL (9.8-20.1); Calc. Creatinine Clearance 57 mL/min (70-130); Calcium 8.6 mg/dL (7.8-10.44); Carbon Dioxide 27 mmol/L (23-31); Chloride 108 mmol/L (98-107); Estimated GFR-MDRD Greater than 90; Magnesium 1.7 mg/dL (1.6-2.6)
[2016-12-17] MEDS: Carbidopa/Levodopa 25-100 mg Tablet PO SCH ×2 (05:55→11:04)
[2016-12-17] MEDS: Acetaminophen 325 MG TAB PO PRN ×2 (05:56→11:03)
[2016-12-17] MEDS: Potassium Chloride 20 MEQ TAB PO SCH (08:19)
[2016-12-17] MEDS: Amlodipine 5 MG TAB PO SCH (08:19)
[2016-12-17] MEDS: Famotidine 20 MG TAB PO SCH (08:20)
[2016-12-17] MEDS: Enoxaparin Sodium 30 MG/0.3 ML SYRINGE SC SCH (08:20)
[2016-12-17 11:31] VITALS: TEMP 97.6
--- NOTE | 2016-12-17 12:07 | DIS ---
DATE OF ADMISSION: 12/15/2016 DATE OF DISCHARGE: 12/17/2016 PRIMARY CARE PHYSICIAN: Dr. Jj Perez. DISCHARGE DISPOSITION: Home with resuming home health. PRIMARY DISCHARGE DIAGNOSES: 1. Rhabdomyolysis. 2. Generalized weakness due to volume depletion. 3. Hypokalemia, replaced. 4. Metabolic alkalosis due to volume depletion, corrected. SECONDARY DISCHARGE DIAGNOSES: Parkinson's disease, chronic diastolic heart failure, diabetes type 2 on diet control, osteoarthritis, anxiety, depression, coronary artery disease. PRIMARY PROCEDURE/OPERATION: None. RADIOLOGICAL INVESTIGATION: Chest x-ray on admission showed no acute cardiopulmonary process. CT b rain was negative for any acute intracranial process. SIGNIFICANT LABORATORY DATA: WBC 6.5, hemoglobin 13.1 and platelet 276. INR 1.0. Sodium 138, pota ssium 4.2, BUN 11, creatinine 0.57, calcium 8.6, magnesium 1.7. CK 461. DISCHARGE MEDICATIONS: Aspirin 325 mg p.o. daily; Sinemet 2 tablets p.o. at 9:00 p.m.; Sinemet 2 ta blets p.o. at 6:00 a.m., 11:00 a.m. and at 3:00 p.m.; Pepcid 20 mg p.o. b.i.d.; Florinef 0.1 mg p.o. daily; Ativan 1 mg p.o. at bedtime as directed for agitation, Levaquin 500 mg p.o. daily finished c omplete course of treatment which was given recently by primary care physician, MiraLax 17 grams p. o. daily, pramipexole 2 mg p.o. at bedtime and 1 mg at 3:00 p.m., Senokot-S 1 tablet twice daily, am lodipine 5 mg p.o. daily, tramadol 50 mg q.6 hourly p.r.n. CONTRAINDICATIONS: None. CODE STATUS: FULL CODE. INPATIENT CONSULTANTS: None. ALLERGIES: TESSALON, PENICILLIN. DISCHARGE PLAN: Post hospital, the patient is advised to follow up with primary care physician in 1 week. HOSPITAL COURSE: A 76-year-old female who was admitted by Dr. Zelaya. Please see his H\T\P for fu rther details. This patient mainly came to the emergency room with generalized weakness. She was v olume depleted and she had rhabdomyolysis. The patient was admitted to telemetry floor. Patient was given IV fluid for hydration. Her total C K significantly improved from 2580 to 461. The patient is doing very well with physical therapy edlfino araujo in hospital. The patient is interested in going home today. Family member present at bedside an d they did not have any questions or concerns to go home today. We are resuming her home health at home for PT. The patient is seen and examined at bedside today. All other review of systems was reviewed with he r and negative. PHYSICAL EXAMINATION: VITAL SIGNS: Currently, temperature 97.6, pulse 69, respiratory rate 18, saturation 97%, blood pres sure 168/74. Weight 94 pounds. GENERAL: The patient is currently alert, awake, no acute distress. HEAD: Normocephalic, atraumatic. LUNGS: Clear to auscultation without any rhonchi. CARDIAC: S1, S2 regular without any murmur. ABDOMEN: Soft and benign. EXTREMITIES: No edema. NEUROLOGIC: Nonfocal examination. The patient is medically stable for discharge today.
[2016-12-17 13:00] VITALS: BP 124/56
== END 2016-12-17 12:09 | disposition home health service (06) | DRG 558 ==
LOC: ERS 02:43 → 2SE 04:00
PROVIDERS: ADMIT Family Medicine; ATTEND Family Medicine
DX: M62.82 Rhabdomyolysis (principal); E87.3 Alkalosis; I11.0 Hypertensive heart disease with heart failure; I50.32 Chronic diastolic (congestive) heart failure; E44.1 Mild protein-calorie malnutrition; Z68.1 Body mass index [BMI] 19.9 or less, adult; G20 Parkinson's disease; E11.9 Type 2 diabetes mellitus without complications; F32.9 Major depressive disorder, single episode, unspecified; Z86.73 Personal history of transient ischemic attack (TIA), and cerebral infarction without residual deficits; K59.00 Constipation, unspecified; M19.90 Unspecified osteoarthritis, unspecified site; F41.9 Anxiety disorder, unspecified; I25.10 Atherosclerotic heart disease of native coronary artery without angina pectoris; Z96.643 Presence of artificial hip joint, bilateral; Z79.82 Long term (current) use of aspirin; Z88.0 Allergy status to penicillin; Z88.8 Allergy status to other drugs, medicaments and biological substances; E87.6 Hypokalemia; E86.0 Dehydration; E86.1 Hypovolemia
CPT/HCPCS: 36415; 36416; 70450; 71010; 80048; 80053; 82550; 82553; 83605; 83690; 83735; 84484; 85025; 85610; 85730; 93005; 93010; 96360; 96372; A4216; G8978-GP-CM; G8979-GP-CL; G8987-GO-CL; G8988-GO-CJ; G8996-GN-CI; G8996-GN-CJ; G8997-GN-CI; G8997-GN-CJ; J1650; J3480; J7050

== ENCOUNTER 2017-01-02 13:43 | Emergency (ER) | payer MEDICARE ==
[2017-01-02 14:36] LABS: #Eosinphils 0.2 thou/uL (0.0-0.7); #Lymphocytes 0.9 thou/uL (1.20-3.40); #Monocytes 0.3 thou/uL (0.11-0.59); #Neutrophils 2.6 thou/uL (1.40-6.50); %Basophils 0.8 % (0.0-1.0); %Eosinophils 5.7 % (0.0-10.0); %Monocytes 7.1 % (0.0-10.0); Hematocrit 31.5 % (36.0-47.0); Mean Platelet Volume 6.6 fL (7.4-10.4); Red Blood Cell (RBC) Count 3.42 mill/uL (4.20-5.40)
[2017-01-02 14:56] LABS: ALT (SGPT) Less than 7 U/L (8-55); AST (SGOT) 11 U/L (5-34); Alkaline Phosphatase 102 U/L (40-150); Anion Gap 14 mmol/L (10-20); BUN (Urea Nitrogen) 16 mg/dL (9.8-20.1); Bilirubin, Total 0.9 mg/dL (0.2-1.2); Calc. Creatinine Clearance 0 mL/min (70-130); Calcium 8.7 mg/dL (7.8-10.44); Carbon Dioxide 24 mmol/L (23-31); Chloride 103 mmol/L (98-107); Estimated GFR-MDRD 68; Globulin 2.6 g/dL (2.4-3.5); Protein, Total 5.9 g/dL (6.0-8.3)
--- NOTE | 2017-01-02 15:50 | RAD ---
RIGHT HIP 2 VIEWS: HISTORY: A 76-year-old female with right hip pain and recent screw placement and repair. COMPARISON: 12/08/16. FINDINGS: The previously noted fracture seen at the time of the initial screw placement has markedly displaced since that study and has become markedly angulated. The screw placements have been considerably al tered as well. IMPRESSION: Interval development of marked displacement and some prominent angulation deformity of the femoral n syl fracture with altered positioning of the internal fixation screws when compared to the immediate postsurgical study of 12/08/16. POS: [facility]
== END 2017-01-02 16:12 | disposition home or self-care (01) ==
LOC: ERS 13:43
DX: M96.89 Other intraoperative and postprocedural complications and disorders of the musculoskeletal system (principal); I25.2 Old myocardial infarction; I50.9 Heart failure, unspecified; Z79.899 Other long term (current) drug therapy; Z79.82 Long term (current) use of aspirin
CPT/HCPCS: 36415; 80053; 85025; 96360; 96361

== ENCOUNTER 2017-01-07 10:34 | Inpatient (IN) | payer MEDICARE ==
[2017-01-06 15:11] VITALS: BMI 15.7
[2017-01-07] MEDS ORDERED: Fentanyl 100 MCG/2 ML VIAL ONE ×2 (11:11→12:38)
[2017-01-07] MEDS ORDERED: Clindamycin/D5W 900 mg/50 ml Premix Bag ONE (11:19)
[2017-01-07] MEDS ORDERED: PHENYLEPHRINE-NS 100 MCG/ML 10 ML SYRINGE ONE (13:10)
[2017-01-07] MEDS ORDERED: Propofol 200 MG/20 ML VIAL ONE (13:10)
[2017-01-07] MEDS ORDERED: ePHEDrine/0.9% NaCl/PF SYRINGE 50 mg/10 ml ONE (13:10)
--- NOTE | 2017-01-07 13:24 | OP ---
DATE OF OPERATION: 01/07/2017 OPERATIONS: 1. Right proximal femur hardware removal. 2. Right hip bipolar hemiarthroplasty. 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 COMPLICATIONS: None. ESTIMATED BLOOD LOSS: 100 mL. SURGEON: Juvencio Cordero M.D. REPLANTING MACHINE OPERATOR: Luis Miguel Sung PA-C INDICATIONS: Ms. Alvarado is a 76-year-old female, who has fallen. She fractured her right femoral neck. She was treated with percutaneous screw fixation initially for her nondisplaced fracture. Over the last 1 month, she has had increasing pain. She has been found to have displacement of her femoral neck fracture with nonunion and loosening of her screws. At this point , she has been indicated for hardware removal with conversion to a bipolar hemiarthroplasty of the hip hopefully to relieve pain and restore function. She is at increased risk of complications given her cardiac disorder and fragile state. Her family is well aware of risks. DESCRIPTION OF OPERATION: Ms. Alvarado was identified in the preoperative holding area. Her correct extremity was marked. She was carried to the operating room. She was then placed in the decubitus position and a spinal anesthetic was administered. Once this was successful, she was converted to the left lateral decubitus position and the right lower extremity was prepped and draped in sterile fashion. We began the procedure with a Vivek approach to the hip. We made an incision along the lateral thigh dissected down to the fascia level. The fascia was then incised. We exposed the underlying screws, which were previously placed. The 3 screws were removed with an appropriate screwdriver. We debrided the lateral tissues of any scar tissue. Next, we exposed the short external rotators of the hip. These were transected. We exposed the femoral neck fracture by rotating the hip. We then dislocated the femoral head. Once this was completed, we proceeded with preparation of the femur. We used a saw to perform a new neck osteotomy. We then reamed the femur and broached. At this point, we cemented in a bipolar stem. The hip was reduced and we trialed. We obtained an appropriate fit for length and stability. We confirmed that our leg lengths were near equal. At this point, we went ahead and placed our final bipolar hip. There were no complications. The wound was thoroughly irrigated with copious lavage. We then closed the short external rotators with a #5 Ethibond suture through drill holes. We then used #2 Vicryl, 2-0 Vicryl, and alber for the skin. A sterile dressing was applied. The patient was taken to the recovery room in good condition without complication. Implants: Depuy size 2 stem basic press fit summit, cemented +5 femoral head with 45 mm bipolar shell MTDD
[2017-01-07 13:43] LABS: #Eosinphils 0.3 thou/uL (0.0-0.7); #Lymphocytes 0.8 thou/uL (1.20-3.40); #Monocytes 0.5 thou/uL (0.11-0.59); #Neutrophils 3.8 thou/uL (1.40-6.50); %Basophils 0.3 % (0.0-1.0); %Eosinophils 4.9 % (0.0-10.0); %Lymphocytes 14.7 % (21.0-51.0); %Monocytes 9.7 % (0.0-10.0); Red Blood Cell (RBC) Count 4.04 mill/uL (4.20-5.40); White Blood Cell (WBC) Count 5.4 thou/uL (4.8-10.8)
[2017-01-07 14:06] LABS: Anion Gap 13 mmol/L (10-20); BUN (Urea Nitrogen) 19 mg/dL (9.8-20.1); Calc. Creatinine Clearance 51 mL/min (70-130); Calcium 9.6 mg/dL (7.8-10.44); Carbon Dioxide 25 mmol/L (23-31); Chloride 103 mmol/L (98-107); Estimated GFR-MDRD 90
--- NOTE | 2017-01-07 15:46 | RAD ---
FRONTAL RADIOGRAPH PELVIS FROGLEG VIEW RIGHT HIP: DATE: 01/07/17. HISTORY: Preoperative patient. COMPARISON: Comparison is made with prior study on 01/02/17. FINDINGS: Cutaneous alber and postoperative gas are seen adjacent to the right proximal femur and superior to the right greater trochanter. There is a right total hip arthroplasty in place. A left total hip a rthroplasty is present as well. The bones are demineralized, limiting assessment for nondisplaced fr acture. Radiopaque tubing overlies the proximal left femur, including the left greater trochanter, limiting d etailed assessment. The pelvic ring appears intact. Neither hip is dislocated. IMPRESSION: Postoperative changes as described above. POS: [facility]
[2017-01-07] MEDS ORDERED: Fentanyl 100 MCG/2 ML VIAL SLOW IVP PRN (16:27)
[2017-01-07] MEDS: Acetaminophen 500 MG TAB PO SCH (17:55)
[2017-01-07] MEDS: Carbidopa/Levodopa 25-100 mg Tablet PO SCH ×2 (17:58→21:32)
[2017-01-07] MEDS: traMADol HCl 50 MG TAB PO SCH (17:58)
[2017-01-07] MEDS: Pramipexole Di-HCl 1 MG TAB PO SCH (21:31)
[2017-01-07] MEDS: Senokot S 8.6-50 MG TAB PO SCH (21:32)
[2017-01-07] MEDS: Lorazepam 1 MG TAB PO PRN (21:34)
[2017-01-07] MEDS ORDERED: Sodium Chloride 0.9% 250 ML 250 ML IVPB SCH (22:45)
[2017-01-07] MEDS: Sodium Chloride 0.9% 1,000 ML IV SCH (22:51)
[2017-01-07] MEDS: Fludrocortisone Acetate 0.1 MG TAB PO PRN (23:51)
[2017-01-08] MEDS: Acetaminophen 500 MG TAB PO SCH ×5 (00:58→23:54)
[2017-01-08] MEDS: traMADol HCl 50 MG TAB PO SCH ×5 (01:22→23:54)
[2017-01-08 05:21] LABS: Hematocrit 23.7 % (36.0-47.0)
[2017-01-08 05:26] LABS: Anion Gap 14 mmol/L (10-20); BUN (Urea Nitrogen) 30 mg/dL (9.8-20.1); Calc. Creatinine Clearance 26 mL/min (70-130); Calcium 8.5 mg/dL (7.8-10.44); Carbon Dioxide 24 mmol/L (23-31); Chloride 105 mmol/L (98-107); Estimated GFR-MDRD 42
[2017-01-08] MEDS: Fludrocortisone Acetate 0.1 MG TAB PO PRN (06:17)
[2017-01-08] MEDS: Carbidopa/Levodopa 25-100 mg Tablet PO SCH ×5 (06:18→20:04)
[2017-01-08] MEDS: Sodium Chloride 0.9% 1,000 ML IV SCH ×3 (07:58→20:04)
[2017-01-08] MEDS: Aspirin 325 mg Enteric Coated Tablet PO SCH (08:54)
[2017-01-08] MEDS: Senokot S 8.6-50 MG TAB PO SCH ×2 (08:54→20:04)
[2017-01-08] MEDS: Enoxaparin Sodium 40 MG/0.4 ML SYRINGE SC SCH (08:55)
[2017-01-08] MEDS: Polyethylene Glycol 3350 17 GM Packet PO SCH (08:55)
[2017-01-08] MEDS: Isosorbide Dinitrate 5 MG TAB PO SCH (08:57)
[2017-01-08] MEDS: Pramipexole Di-HCl 1 MG TAB PO SCH ×2 (15:17→20:04)
--- NOTE | 2017-01-08 16:20 | PDOC.PN ---
- Subjective Encounter Start Date: 01/08/17 Encounter Start Time: 10:20 Pt seen for management of acute renal failure. Denies chest pain, shortness of breath, fevers or chills. - Objective MAR Reviewed: Yes Vital Signs & Weight: Vital Signs (12 hours) Temp Pulse Resp BP Pulse Ox 01/08/17 15:35 98.1 F 92 16 114/60 94 L 01/08/17 11:57 97 01/08/17 11:35 97.7 F 102 H 16 135/70 01/08/17 07:45 97.8 F 98 15 92/54 L 99 01/08/17 07:24 98.5 F 87 16 120/83 94 L 01/08/17 05:20 97.8 F 104 H 16 90/54 L 98 Weight Admit Weight 95 lb Weight 95 lb Result Diagrams: 01/08/17 04:25 01/08/17 04:25 Phys Exam - Physical Examination appears frail HEENT: moist MMs, oral pharynx no lesions Neck: supple Respiratory: clear to auscultation bilateral Cardiovascular: RRR Gastrointestinal: soft s/p R hip surgery Neurological: moves all 4 limbs Psychiatric: normal affect Skin: no rash Dx/Plan (1) PINEDA (acute kidney injury) Code(s): N17.9 - ACUTE KIDNEY FAILURE, UNSPECIFIED Status: Acute (2) CHF (congestive heart failure) Code(s): I50.9 - HEART FAILURE, UNSPECIFIED Status: Chronic Qualifiers: Congestive heart failure type: diastolic (3) CAD (coronary artery disease) Code(s): I25.10 - ATHSCL HEART DISEASE OF [place] CORONARY ARTERY W/O ANG PCTRS Status: Chronic (4) Parkinsons disease Code(s): G20 - PARKINSON'S DISEASE Status: Chronic (5) Protein-calorie malnutrition, mild Code(s): E44.1 - MILD PROTEIN-CALORIE MALNUTRITION Status: Chronic - Plan plan discussed w/ family, PT/OT, out of bed/ambulate * . Etiology of PINEDA unclear. Pt reports good oral intake, denies, nausea, vomiting or diarrhea. Check urine lytes,. creatinine, provide gentle hydration (h/o CHF), recheck creatinine. Continue Parkinson's disease medications. s/p R hip surgery. Pain management and DVT prophylaxis per orthopedic surgery. Review of Systems - Review of Systems Constitutional: negative: Fever, Chills, Sweats, Weakness, Malaise Respiratory: negative: Cough, Dry, Shortness of Breath, Hemoptysis, SOB with Excertion, Pleuritic Pain, Sputum, Wheezing Cardiovascular: negative: Chest Pain, Palpitations, Orthopnea, Paroxysmal Noc. Dyspnea, Edema, Light Headedness - Medications/Allergies Allergies/Adverse Reactions: Allergies Allergy/AdvReac Type Severity Reaction Status Date / Time benzonatate Allergy Verified 01/06/17 15:11 [From Marge Dueñas] iodine Allergy Verified 01/06/17 15:11 Penicillins Allergy Verified 01/06/17 15:11 red dye Allergy Verified 01/06/17 15:11 adhesives Allergy Uncoded 01/06/17 15:39 Medications: Current Medications Acetaminophen (Tylenol) 1,000 mg PO Q6HR [facility] Last Admin: 01/08/17 11:12 Dose: 1,000 mg Aspirin (Ecotrin) 325 mg PO DAILY [facility] Last Admin: 01/08/17 08:54 Dose: 325 mg Carbidopa/Levodopa (Sinemet 25-100) 2 tab PO 0600,1100,1500,1800 [facility] Last Admin: 01/08/17 15:17 Dose: 2 tab Carbidopa/Levodopa (Sinemet 25-100) 2 tab PO 2100 [facility] Last Admin: 01/07/17 21:32 Dose: 2 tab Enoxaparin Sodium (Lovenox) 40 mg SC 0900 [facility] Last Admin: 01/08/17 08:55 Dose: 40 mg Fentanyl (Sublimaze) 50 mcg SLOW IVP Q2H PRN PRN Reason: Severe Pain (7-10) Fludrocortisone Acetate (Florinef) 0.1 mg PO DAILYPRN PRN PRN Reason: FOR LOW BP Last Admin: 01/08/17 06:17 Dose: 0.1 mg Sodium Chloride (Normal Saline 0.9%) 1,000 mls @ 50 mls/hr IV .Q20H [facility] Last Admin: 01/08/17 11:34 Dose: 1,000 mls Isosorbide Dinitrate (Isordil) 5 mg PO DAILY [facility] Last Admin: 01/08/17 08:57 Dose: 5 mg Lorazepam (Ativan) 0.5 mg PO HS PRN PRN Reason: Anxiety Last Admin: 01/07/17 21:34 Dose: 0.5 mg Polyethylene Glycol (Miralax) 17 gm PO DAILY [facility] Last Admin: 01/08/17 08:55 Dose: 17 gm Pramipexole Dihydrochloride (Mirapex) 2 mg PO 1500,2100 [facility] Last Admin: 01/08/17 15:17 Dose: 2 mg Senna/Docusate Sodium (Senokot S) 1 tab PO BID [facility] Last Admin: 01/08/17 08:54 Dose: 1 tab Sodium Chloride (Flush - Normal Saline) 10 ml IVF Q12HR [facility] Last Admin: 01/08/17 11:34 Dose: 10 ml Sodium Chloride (Flush - Normal Saline) 10 ml IVF PRN PRN PRN Reason: Saline Flush Tramadol HCl (Ultram) 50 mg PO Q6HR [facility] Last Admin: 01/08/17 11:21 Dose: 50 mg
[2017-01-08] MEDS: Lorazepam 1 MG TAB PO PRN (20:04)
[2017-01-09] MEDS: traMADol HCl 50 MG TAB PO SCH ×3 (04:06→17:31)
[2017-01-09] MEDS: Acetaminophen 500 MG TAB PO SCH ×3 (04:06→17:30)
[2017-01-09] MEDS: Carbidopa/Levodopa 25-100 mg Tablet PO SCH ×5 (04:07→20:14)
[2017-01-09 04:47] LABS: Anion Gap 9 mmol/L (10-20); BUN (Urea Nitrogen) 28 mg/dL (9.8-20.1); Calc. Creatinine Clearance 50 mL/min (70-130); Calcium 8.3 mg/dL (7.8-10.44); Carbon Dioxide 24 mmol/L (23-31); Chloride 110 mmol/L (98-107); Estimated GFR-MDRD 89
[2017-01-09 07:25] LABS: #Eosinphils 0.2 thou/uL (0.0-0.7); #Lymphocytes 0.5 thou/uL (1.20-3.40); #Monocytes 0.3 thou/uL (0.11-0.59); #Neutrophils 4.1 thou/uL (1.40-6.50); %Basophils 0.3 % (0.0-1.0); %Eosinophils 4.3 % (0.0-10.0); %Lymphocytes 10.5 % (21.0-51.0); %Monocytes 6.2 % (0.0-10.0); Hematocrit 20.7 % (36.0-47.0); Mean Platelet Volume 7.4 fL (7.4-10.4); White Blood Cell (WBC) Count 5.2 thou/uL (4.8-10.8)
[2017-01-09] MEDS: Aspirin 325 mg Enteric Coated Tablet PO SCH (09:35)
[2017-01-09] MEDS: Senokot S 8.6-50 MG TAB PO SCH ×2 (09:35→20:14)
[2017-01-09] MEDS: Polyethylene Glycol 3350 17 GM Packet PO SCH (09:35)
[2017-01-09] MEDS: Enoxaparin Sodium 40 MG/0.4 ML SYRINGE SC SCH (09:35)
[2017-01-09] MEDS: Isosorbide Dinitrate 5 MG TAB PO SCH (09:35)
--- NOTE | 2017-01-09 13:28 | PDOC.PN ---
- Subjective Encounter Start Date: 01/09/17 Encounter Start Time: 08:20 Pt seen for followup re: CHF. Denies chest pain, shortness of breath, fevers or chills. - Objective MAR Reviewed: Yes Vital Signs & Weight: Vital Signs (12 hours) Temp Pulse Pulse Resp BP BP Pulse Ox 01/09/17 13:01 98.0 F 81 16 139/82 96 01/09/17 12:00 98.0 F 79 12 117/52 L 97 01/09/17 08:00 97.4 F L 81 12 177/76 H 98 01/09/17 04:21 98.5 F 82 16 169/72 H 96 Weight Admit Weight 95 lb Weight 95 lb I&O: 01/08/17 01/09/17 01/10/17 06:59 06:59 06:59 Intake Total 800 0 Balance 800 0 Result Diagrams: 01/09/17 03:26 01/09/17 03:26 Phys Exam - Physical Examination Constitutional: NAD HEENT: moist MMs Neck: supple Respiratory: clear to auscultation bilateral Cardiovascular: RRR Gastrointestinal: soft Musculoskeletal: pulses present s/p R hip surgery Neurological: moves all 4 limbs Psychiatric: normal affect Skin: no rash Dx/Plan (1) CHF (congestive heart failure) Code(s): I50.9 - HEART FAILURE, UNSPECIFIED Status: Chronic Qualifiers: Congestive heart failure type: diastolic (2) CAD (coronary artery disease) Code(s): I25.10 - ATHSCL HEART DISEASE OF [place] CORONARY ARTERY W/O ANG PCTRS Status: Chronic (3) Parkinsons disease Code(s): G20 - PARKINSON'S DISEASE Status: Chronic (4) Protein-calorie malnutrition, mild Code(s): E44.1 - MILD PROTEIN-CALORIE MALNUTRITION Status: Chronic (5) PINEDA (acute kidney injury) Code(s): N17.9 - ACUTE KIDNEY FAILURE, UNSPECIFIED Status: Resolved - Plan PT/OT, out of bed/ambulate * . Discontinue IV fluids. Oral intake encouraged. PINEDA resolved. CAD stable. Review of Systems - Review of Systems Constitutional: negative: Fever, Chills, Sweats, Weakness, Malaise Respiratory: negative: Cough, Dry, Shortness of Breath, Hemoptysis, SOB with Excertion, Pleuritic Pain, Sputum, Wheezing Cardiovascular: negative: Chest Pain, Palpitations, Orthopnea, Paroxysmal Noc. Dyspnea, Edema, Light Headedness - Medications/Allergies Allergies/Adverse Reactions: Allergies Allergy/AdvReac Type Severity Reaction Status Date / Time benzonatate Allergy Verified 01/06/17 15:11 [From Holliemaribelcelia Leana] iodine Allergy Verified 01/06/17 15:11 Penicillins Allergy Verified 01/06/17 15:11 red dye Allergy Verified 01/06/17 15:11 adhesives Allergy Uncoded 01/06/17 15:39 Medications: Current Medications Acetaminophen (Tylenol) 1,000 mg PO Q6HR [facility] Last Admin: 01/09/17 11:40 Dose: 1,000 mg Aspirin (Ecotrin) 325 mg PO DAILY [facility] Last Admin: 01/09/17 09:35 Dose: 325 mg Carbidopa/Levodopa (Sinemet 25-100) 2 tab PO 0600,1100,1500,1800 [facility] Last Admin: 01/09/17 11:40 Dose: 2 tab Carbidopa/Levodopa (Sinemet 25-100) 2 tab PO 2100 [facility] Last Admin: 01/08/17 20:04 Dose: 2 tab Enoxaparin Sodium (Lovenox) 40 mg SC 0900 [facility] Last Admin: 01/09/17 09:35 Dose: 40 mg Fentanyl (Sublimaze) 50 mcg SLOW IVP Q2H PRN PRN Reason: Severe Pain (7-10) Fludrocortisone Acetate (Florinef) 0.1 mg PO DAILYPRN PRN PRN Reason: FOR LOW BP Last Admin: 01/08/17 06:17 Dose: 0.1 mg Isosorbide Dinitrate (Isordil) 5 mg PO DAILY [facility] Last Admin: 01/09/17 09:35 Dose: 5 mg Lorazepam (Ativan) 0.5 mg PO HS PRN PRN Reason: Anxiety Last Admin: 01/08/17 20:04 Dose: 0.5 mg Polyethylene Glycol (Miralax) 17 gm PO DAILY [facility] Last Admin: 01/09/17 09:35 Dose: 17 gm Pramipexole Dihydrochloride (Mirapex) 2 mg PO 1500,2100 [facility] Last Admin: 01/08/17 20:04 Dose: 2 mg Senna/Docusate Sodium (Senokot S) 1 tab PO BID [facility] Last Admin: 01/09/17 09:35 Dose: 1 tab Sodium Chloride (Flush - Normal Saline) 10 ml IVF Q12HR [facility] Last Admin: 01/09/17 09:35 Dose: Not Given Sodium Chloride (Flush - Normal Saline) 10 ml IVF PRN PRN PRN Reason: Saline Flush Tramadol HCl (Ultram) 50 mg PO Q6HR [facility] Last Admin: 01/09/17 11:41 Dose: 50 mg
[2017-01-09] MEDS: Pramipexole Di-HCl 1 MG TAB PO SCH ×2 (15:02→20:14)
[2017-01-09] MEDS: Lorazepam 1 MG TAB PO PRN (20:17)
[2017-01-10] MEDS: traMADol HCl 50 MG TAB PO SCH ×3 (02:49→11:17)
[2017-01-10] MEDS: Acetaminophen 500 MG TAB PO SCH ×3 (02:49→11:18)
[2017-01-10] MEDS: Carbidopa/Levodopa 25-100 mg Tablet PO SCH ×3 (04:23→11:18)
[2017-01-10 05:05] LABS: Hematocrit 24.8 % (36.0-47.0); Mean Platelet Volume 7.3 fL (7.4-10.4); Red Blood Cell (RBC) Count 2.68 mill/uL (4.20-5.40); White Blood Cell (WBC) Count 5.4 thou/uL (4.8-10.8)
[2017-01-10 08:06] VITALS: TEMP 97.8
[2017-01-10] MEDS: Isosorbide Dinitrate 5 MG TAB PO SCH (09:12)
[2017-01-10] MEDS: Aspirin 325 mg Enteric Coated Tablet PO SCH (09:12)
[2017-01-10] MEDS: Polyethylene Glycol 3350 17 GM Packet PO SCH (09:12)
[2017-01-10] MEDS: Senokot S 8.6-50 MG TAB PO SCH (09:12)
[2017-01-10] MEDS: Enoxaparin Sodium 40 MG/0.4 ML SYRINGE SC SCH (09:13)
[2017-01-10 12:45] VITALS: BP 140/57
--- NOTE | 2017-01-10 13:49 | DIS ---
DATE OF ADMISSION: 01/07/2017 DATE OF DISCHARGE: 01/10/2017 HOSPITAL COURSE: A 76-year-old female who underwent hemiarthroplasty of the right hip for a femoral neck fracture. She did well during and after surgery. She mobilized with physical therapy. Her gregory n was controlled. Her medical problems were stable without exacerbation. She did require a 1 unit b lood transfusion in the early postoperative course. DISCHARGE INSTRUCTIONS: The patient will keep her wound clean and dry. She will continue to mobiliz e with assistance with her family as needed. She is weightbearing as tolerated. She is aware of pos terior hip precautions. She will follow up with Dr. Cordero in 10-14 days for wound evaluation.
--- NOTE | 2017-01-10 14:12 | PDOC.PN ---
- Subjective Encounter Start Date: 01/10/17 Encounter Start Time: 09:20 Pt seen for followup re: CHF. Denies chest pain, shortness of breath, fevers or chills. - Objective MAR Reviewed: Yes Vital Signs & Weight: Vital Signs (12 hours) Temp Pulse Resp BP Pulse Ox 01/10/17 12:00 97.8 F 80 16 140/57 L 98 01/10/17 07:00 97.8 F 66 16 162/66 H 98 01/10/17 04:04 96 01/10/17 03:49 98.7 F 74 16 152/63 H 97 Weight Admit Weight 95 lb Weight 95 lb I&O: 01/09/17 01/10/17 01/11/17 06:59 06:59 06:59 Intake Total 800 810 Balance 800 810 Result Diagrams: 01/10/17 04:17 01/09/17 03:26 Phys Exam - Physical Examination Constitutional: NAD HEENT: moist MMs Neck: supple Respiratory: clear to auscultation bilateral Cardiovascular: RRR Gastrointestinal: soft Musculoskeletal: pulses present Neurological: moves all 4 limbs Psychiatric: normal affect Dx/Plan (1) CHF (congestive heart failure) Code(s): I50.9 - HEART FAILURE, UNSPECIFIED Status: Chronic Qualifiers: Congestive heart failure type: diastolic (2) CAD (coronary artery disease) Code(s): I25.10 - ATHSCL HEART DISEASE OF [place] CORONARY ARTERY W/O ANG PCTRS Status: Chronic (3) Parkinsons disease Code(s): G20 - PARKINSON'S DISEASE Status: Chronic (4) Protein-calorie malnutrition, mild Code(s): E44.1 - MILD PROTEIN-CALORIE MALNUTRITION Status: Chronic (5) PINEDA (acute kidney injury) Code(s): N17.9 - ACUTE KIDNEY FAILURE, UNSPECIFIED Status: Resolved - Plan * . Pt feels better. PINEDA resolved as of yesterday. Plan to discharge patient noted, will sign off. Review of Systems - Review of Systems Respiratory: negative: Cough, Dry, Shortness of Breath, Hemoptysis, SOB with Excertion, Pleuritic Pain, Sputum, Wheezing Cardiovascular: negative: Chest Pain, Palpitations, Orthopnea, Paroxysmal Noc. Dyspnea, Edema, Light Headedness - Medications/Allergies Allergies/Adverse Reactions: Allergies Allergy/AdvReac Type Severity Reaction Status Date / Time benzonatate Allergy Verified 01/06/17 15:11 [From Marge Dueñas] iodine Allergy Verified 01/06/17 15:11 Penicillins Allergy Verified 01/06/17 15:11 red dye Allergy Verified 01/06/17 15:11 adhesives Allergy Uncoded 01/06/17 15:39
--- NOTE | 2017-01-13 09:33 | PQF ---
NACHO GARCÍA CHRISTOPHER E MD [id number] CLINICAL DOCUMENTATION CLARIFICATION FORM: POST DISCHARGE Addendum to original discharge summary date: ____ Late entry note date: __ DATE: 01/13/2017 ATTN: DR. WALLCAE Please exercise your independent, professional judgment in responding to the clarification form. Clinical indicators are provided on the bottom of this form for your review Please check appropriate box(s): [ x] Acute blood loss anemia [ ] Post-op anemia related to acute blood loss [ ] Anemia: [ ] Aplastic [ ] Nutritional [ ] Drug induced (specify) ___ [ ] Hemolytic [ ] Hereditary [ ] Acquired [ ] Autoimmune [ ] Non-autoimmune [ ] Enzyme disorder [ ] Chronic Anemia: [ ] Blood loss [ ] Hemolytic [ ] Simple [ ] Due to Vitamin B12 Deficiency [ ] Other [ ] Anemia of Chronic Disease (please specify) [ ] Anemia due to Neoplasm: [ ] Primary [ ] Secondary [ ] Anemia due to (please choose): [ ] Due to Chemotherapy [ ] Due to Radiotherapy [ ] Due to Immunotherapy [ ] Other diagnosis [ ] Unable to determine In addition, please specify: Present on Admission (POA): [ ] Yes [ x ] No [ ] Unable to determine For continuity of documentation, please document condition throughout progress notes and discharge summary. Thank You. CLINICAL INDICATORS - SIGNS / SYMPTOMS / LABS RIGHT FEMORAL NECK FRACTURE WITH NONUNION 01/07 OP - BIPOLAR HEMIARTHROPLASTY ESTIMATED BLOOD LOSS - 100 mL 01/09 PN - PRBC TRANSFUSION RISK FACTORS Surgery Fracture of major bones Malnutrition TREATMENTS: Transfusion of blood products (This form is maintained as a part of the permanent medical record) 2014 [employer]. All Rights Reserved Saida Rangel CCS, [facility] [email or web address] [phone] MTDD
== END 2017-01-10 13:47 | disposition home health service (06) | DRG 470 ==
LOC: SURG A 10:34 → UNDOADMIN 13:34 → SJJU 16:08
PROVIDERS: ADMIT Orthopaedic Surgery; ATTEND Orthopaedic Surgery
PROC: 0SRR0J9 Replacement of Right Hip Joint, Femoral Surface with Synthetic Substitute, Cemented, Open Approach (ICD-10-PCS; principal; 2017-01-07)
PROC: 0QP604Z Removal of Internal Fixation Device from Right Upper Femur, Open Approach (ICD-10-PCS; 2017-01-07)
PROC: 30233N1 Transfusion of Nonautologous Red Blood Cells into Peripheral Vein, Percutaneous Approach (ICD-10-PCS; 2017-01-09)
DX: S72.001K Fracture of unspecified part of neck of right femur, subsequent encounter for closed fracture with nonunion (principal); N17.9 Acute kidney failure, unspecified; I50.32 Chronic diastolic (congestive) heart failure; G20 Parkinson's disease; E44.1 Mild protein-calorie malnutrition; Z68.1 Body mass index [BMI] 19.9 or less, adult; D62 Acute posthemorrhagic anemia; T84.114A Breakdown (mechanical) of internal fixation device of right femur, initial encounter; E11.9 Type 2 diabetes mellitus without complications; W19.XXXD Unspecified fall, subsequent encounter; I25.10 Atherosclerotic heart disease of native coronary artery without angina pectoris; E55.9 Vitamin D deficiency, unspecified
CPT/HCPCS: 36415; 36430; 80048; 85014; 85018; 85025; 85027; 85610; 86850; 86900; 86901; A4216; C1713; C1781; G8978-GP-CM; G8979-GP-CK; J1650; J2704; J3010; J3490; P9016

== ENCOUNTER 2017-02-14 16:08 | Inpatient (IN) | payer MEDICARE ==
--- NOTE | 2017-02-14 17:07 | RAD ---
RIGHT HIP TWO VIEWS: 02/14/17 HISTORY: 76-year-old female with right hip pain following an injury. COMPARISON: 01/07/17. There is dislocation of the hip prosthesis from the acetabulum and extending laterally and superiorly with considerable overriding and resultant deformity. IMPRESSION: Dislocation of the right hip prosthesis from the acetabulum with marked displacement and foreshorteni ng. POS: [facility]
[2017-02-14] MEDS ORDERED: Diprivan 20 ML ONE (17:41)
[2017-02-14] MEDS ORDERED: Fentanyl 100 MCG/2 ML VIAL ONE (17:45)
--- NOTE | 2017-02-14 20:05 | RAD ---
RIGHT HIP ONE VIEW: 02/14/17 HISTORY: Right hip pain, exam is labeled is post reduction. FINDINGS/IMPRESSION: There is persistent dislocation of the acetabular portion of the prosthesis from the acetabulum with considerable foreshortening. POS: [facility]
[2017-02-14 20:12] LABS: PTT 27.6 SEC (22.9-36.1)
[2017-02-14 20:12] LABS: #Eosinphils 0.2 thou/uL (0.0-0.7); #Lymphocytes 1.2 thou/uL (1.20-3.40); #Monocytes 0.5 thou/uL (0.11-0.59); #Neutrophils 6.4 thou/uL (1.40-6.50); %Basophils 0.4 % (0.0-1.0); %Eosinophils 2.7 % (0.0-10.0); %Lymphocytes 14.7 % (21.0-51.0); %Monocytes 5.4 % (0.0-10.0); Hematocrit 37.5 % (36.0-47.0); Mean Platelet Volume 7.7 fL (7.4-10.4); Red Blood Cell (RBC) Count 3.96 mill/uL (4.20-5.40); White Blood Cell (WBC) Count 8.3 thou/uL (4.8-10.8)
[2017-02-14 20:20] LABS: ALT (SGPT) Less than 7 U/L (8-55); AST (SGOT) 16 U/L (5-34); Alkaline Phosphatase 100 U/L (40-150); Anion Gap 14 mmol/L (10-20); BUN (Urea Nitrogen) 24 mg/dL (9.8-20.1); Bilirubin, Total 1.4 mg/dL (0.2-1.2); Calc. Creatinine Clearance 0 mL/min (70-130); Calcium 9.6 mg/dL (7.8-10.44); Carbon Dioxide 27 mmol/L (23-31); Chloride 103 mmol/L (98-107); Estimated GFR-MDRD 81; Globulin 2.6 g/dL (2.4-3.5); Protein, Total 6.8 g/dL (6.0-8.3)
[2017-02-14] MEDS ORDERED: Metoprolol Tartrate 5 MG/5 ML VIAL ONE (20:31)
[2017-02-14] MEDS ORDERED: Fentanyl 100 MCG/2 ML VIAL SLOW IVP PRN (20:56)
[2017-02-14] MEDS ORDERED: traMADol HCl 50 MG TAB PO PRN (20:56)
[2017-02-14] MEDS ORDERED: Lorazepam 1 MG TAB PO PRN (20:57)
[2017-02-14] MEDS ORDERED: Carbidopa/Levodopa 25-100 mg Tablet PO SCH (21:00)
--- NOTE | 2017-02-14 21:27 | CT ---
PELVIC CT SCAN WITHOUT IV CONTRAST: 02/14/17 HISTORY: 76-year-old female with history of right hip pain following a slip and fall. There is again noted to be dislocation of the acetabular portion of the prosthesis from the acetabulu m. It is noted medially and considerably superior to the acetabulum. There is no evidence for an overt acute fracture. There is significant bone demineralization. IMPRESSION: Marked displacement of the acetabular portion of the prosthesis from the acetabulum. The femoral head portion of the prosthesis is within the acetabular component of the prosthesis. Severe bone deminera lization. No overt acute fracture. There is some soft tissue swelling around the dislocated acetabula r portion of the prosthesis. POS: [facility]
[2017-02-14] MEDS: Senokot S 8.6-50 MG TAB PO SCH (22:42)
[2017-02-14] MEDS ORDERED: Fludrocortisone Acetate 0.1 MG TAB PO PRN (23:34)
[2017-02-14] MEDS: Acetaminophen 500 MG TAB PO SCH (23:42)
[2017-02-15] MEDS: Acetaminophen 500 MG TAB PO SCH ×3 (00:11→13:01)
--- NOTE | 2017-02-15 00:28 | HP ---
CHIEF COMPLAINT: Right hip pain. HISTORY OF PRESENT ILLNESS: Ms. Alvarado is a 76-year-old female who fell today. She tripped in her bathroom, falling forward. Her leg was hyperextended and twisted in an awkward position. She had im mediate pain. She was unable to ambulate. She has a complicated history regarding her hip. She had a recent femoral neck fracture treated with bipolar hemiarthroplasty approximately one month ago. S he was taken to the emergency department. X-rays have shown her hip hemiarthroplasty has dislocated from the right acetabulum. Orthopedics was consulted for this. She had an attempted closed reductio n in the emergency department; however, this was unsuccessful. She now has plans to be admitted to [facility] for further treatment. PAST MEDICAL HISTORY: Includes dementia, hypertension, Parkinson disease, diabetes, osteoarthritis, anxiety, depression, and history of coronary artery disease also. PAST SURGICAL HISTORY: Appendectomy, hysterectomy, bilateral hemiarthroplasties of the hip, previous cardiac catheterization, previous bladder suspension surgery, and tonsillectomy. ALLERGIES: PENICILLIN, TESSALON PERLES, and RED DYE. SOCIAL HISTORY: The patient denies tobacco, alcohol, or drug use. She lives with her daughter at [facility]. FAMILY MEDICAL HISTORY: Noncontributory. REVIEW OF SYSTEMS: Positive for right hip pain, otherwise negative. IMAGES: X-rays are reviewed which demonstrate a hemiarthroplasty of the right hip, which is cemented . She has a dislocated hip. Left hip hemiarthroplasty is located. PHYSICAL EXAMINATION: VITAL SIGNS: Stable. GENERAL: The patient is lying supine. She does not answer questions appropriately. Her family is a t the bedside to answer questions. HEENT: Normocephalic, atraumatic. RESPIRATORY: Breathing comfortably. ABDOMEN: Soft, nontender, nondistended. MUSCULOSKELETAL: The right leg is shortened and internally rotated position. She is able flex and e xtend the foot and ankle distally. She has a palpable pulse. IMPRESSION: Right dislocated hemiarthroplasty of the hip. PLAN: At this point, I think the patient would be treated in the safest fashion by taking her to the operating room tomorrow morning for a closed reduction procedure with intraoperative fluoroscopy in appropriate relaxation. I am hopeful that we can reduce this hip in a closed fashion without further incident; if not, she would need an open reduction or possibly even a [place], although I think this would be very unlikely. She will be admitted to the hospital. She will have medical comanageme nt. She will have adequate pain control. We will plan for her closed reduction of the hip to be don e tomorrow morning.
[2017-02-15] MEDS: Carbidopa/Levodopa 25-100 mg Tablet PO SCH ×3 (06:48→14:36)
[2017-02-15 08:08] VITALS: BMI 16.8
[2017-02-15] MEDS ORDERED: Aspirin 325 mg Enteric Coated Tablet PO SCH (09:00)
[2017-02-15] MEDS ORDERED: Polyethylene Glycol 3350 17 GM Packet PO SCH (09:00)
[2017-02-15] MEDS ORDERED: Fludrocortisone Acetate 0.1 MG TAB PO SCH (09:00)
[2017-02-15] MEDS ORDERED: Fentanyl 100 MCG/2 ML VIAL ONE (09:02)
[2017-02-15] MEDS ORDERED: Propofol 200 MG/20 ML VIAL ONE (09:49)
[2017-02-15] MEDS ORDERED: ePHEDrine/0.9% NaCl/PF SYRINGE 50 mg/10 ml ONE (09:49)
[2017-02-15] MEDS ORDERED: Succinylcholine Chloride 20 MG/ML 10 ml SYRINGE FS ONE ×2 (09:49)
[2017-02-15] MEDS ORDERED: Lidocaine 1% PF 5 ML VIAL ONE (09:49)
[2017-02-15] MEDS ORDERED: Promethazine HCl 25 MG/ML VIAL IM PRN (10:27)
[2017-02-15] MEDS ORDERED: Promethazine HCl 25 MG/ML VIAL SLOW IVP PRN (10:27)
[2017-02-15] MEDS ORDERED: Ondansetron HCl/PF 4 MG/2 ML Vial IVP PRN (10:27)
[2017-02-15] MEDS: Senokot S 8.6-50 MG TAB PO SCH (10:59)
--- NOTE | 2017-02-15 12:15 | RAD ---
2 AP VIEWS RIGHT HIP: Date: 02/15/17 HISTORY: Closed reduction right hip. FINDINGS: Two AP views right hip obtained. The dislocated right hip has been reduced. Femoral and acetabular co mponents in good position. IMPRESSION: Status post reduction of dislocated right hip arthroplasty. POS: [facility]
[2017-02-15 13:52] VITALS: TEMP 97.3
[2017-02-15] MEDS ORDERED: Pramipexole Di-HCl 1 MG TAB PO SCH (15:00)
[2017-02-15 15:10] VITALS: BP 119/55
== END 2017-02-15 15:45 | disposition home or self-care (01) | DRG 561 ==
LOC: ERS 16:08 → SURG A 21:43
PROVIDERS: ADMIT Orthopaedic Surgery; ATTEND Orthopaedic Surgery
PROC: 0SS9XZZ Reposition Right Hip Joint, External Approach (ICD-10-PCS; principal; 2017-02-15)
DX: T84.020A Dislocation of internal right hip prosthesis, initial encounter (principal); G20 Parkinson's disease; E11.9 Type 2 diabetes mellitus without complications; F03.90 Unspecified dementia, unspecified severity, without behavioral disturbance, psychotic disturbance, mood disturbance, and anxiety; W01.0XXA Fall on same level from slipping, tripping and stumbling without subsequent striking against object, initial encounter; I10 Essential (primary) hypertension; M19.90 Unspecified osteoarthritis, unspecified site; F41.9 Anxiety disorder, unspecified; F32.9 Major depressive disorder, single episode, unspecified; I25.10 Atherosclerotic heart disease of native coronary artery without angina pectoris; Z88.0 Allergy status to penicillin; Z88.8 Allergy status to other drugs, medicaments and biological substances; Z96.643 Presence of artificial hip joint, bilateral; I25.2 Old myocardial infarction
CPT/HCPCS: 36416; 72192; 76000; 80053; 85025; 85610; 85730; 93005; 94760; 96361; 96374; 96375; 99152; G8978-GP-CK; G8979-GP-CK; G8980-GP-CK; J2001; J2704; J3010; L1686

== ENCOUNTER 2017-02-18 10:32 | Inpatient (IN) | payer MEDICARE ==
--- NOTE | 2017-02-18 12:31 | RAD ---
RIGHT HIP TWO VIEWS: History: Right hip pain. FINDINGS/IMPRESSION: There is a dislocated right femoral head prosthesis seen with superior dislocation and associated for eshortening. POS: [facility]
[2017-02-18] MEDS ORDERED: Ondansetron HCl/PF 4 MG/2 ML Vial IV PRN (12:40)
[2017-02-18] MEDS ORDERED: Fentanyl 100 MCG/2 ML VIAL SLOW IVP PRN (12:40)
[2017-02-18] MEDS ORDERED: HYDROcodone/Acetaminophen 10/325 mg Tablet PO PRN ×2 (12:40)
[2017-02-18] MEDS ORDERED: Morphine 4 MG/ML VIAL SLOW IVP PRN (12:40)
[2017-02-18] MEDS ORDERED: traMADol HCl 50 MG TAB PO PRN (12:40)
[2017-02-18] MEDS ORDERED: Promethazine HCl 25 MG/ML VIAL IM PRN (12:40)
[2017-02-18] MEDS ORDERED: TETANUS AND DIPHTHERIA TOX/PF 0.5 ML DISP.SYRIN IM SCH (12:45)
[2017-02-18] MEDS ORDERED: Lorazepam 0.5 MG TAB PO PRN (12:56)
[2017-02-18] MEDS ORDERED: Morphine 2 mg/2ml in 0.9% NaCl PF SYRINGE ONE (13:13)
[2017-02-18 13:21] LABS: #Eosinphils 0.2 thou/uL (0.0-0.7); #Lymphocytes 0.7 thou/uL (1.20-3.40); #Monocytes 0.3 thou/uL (0.11-0.59); #Neutrophils 3.7 thou/uL (1.40-6.50); %Basophils 0.5 % (0.0-1.0); %Eosinophils 4.1 % (0.0-10.0); %Neutrophils 74.3 % (42.0-75.0); Hemoglobin 10.4 g/dL (12.0-16.0); Mean Corpuscular HGB CONC 33.6 g/dL (32.0-36.0); Mean Corpuscular Hemoglobin 31.6 pg (27.0-31.0); Mean Platelet Volume 7.2 fL (7.4-10.4); Platelet Count 216 thou/uL (130-400); RBC Distribution Width 13.8 % (11.5-14.5); White Blood Cell (WBC) Count 4.9 thou/uL (4.8-10.8)
[2017-02-18 13:30] LABS: INR-International Normal Ratio 1.1; Prothrombin Time 14.8 SEC (12.0-14.7)
[2017-02-18 13:55] LABS: ALT (SGPT) Less than 7 U/L (8-55); AST (SGOT) 16 U/L (5-34); Albumin 3.6 g/dL (3.4-4.8); Alkaline Phosphatase 81 U/L (40-150); Anion Gap 13 mmol/L (10-20); BUN (Urea Nitrogen) 17 mg/dL (9.8-20.1); Bilirubin, Total 1.4 mg/dL (0.2-1.2); Calc. Creatinine Clearance 0 mL/min (70-130); Calcium 9.4 mg/dL (7.8-10.44); Carbon Dioxide 28 mmol/L (23-31); Chloride 104 mmol/L (98-107); Estimated GFR-MDRD 90; Globulin 2.5 g/dL (2.4-3.5); Glucose 138 mg/dL (83-110); Potassium 3.6 mmol/L (3.5-5.1); Protein, Total 6.1 g/dL (6.0-8.3); Sodium 141 mmol/L (136-145)
[2017-02-18] MEDS ORDERED: Morphine 4 MG/ML VIAL ONE ×3 (15:14→19:37)
[2017-02-18] MEDS ORDERED: Lidocaine 1% PF 5 ML VIAL ONE (16:29)
[2017-02-18] MEDS ORDERED: ePHEDrine/0.9% NaCl/PF SYRINGE 50 mg/10 ml ONE (16:29)
[2017-02-18] MEDS ORDERED: Succinylcholine Chloride 20 MG/ML 10 ml SYRINGE FS ONE (16:29)
[2017-02-18] MEDS ORDERED: Propofol 200 MG/20 ML VIAL ONE (16:29)
[2017-02-18 16:37] LABS: Bilirubin Negative (Negative); Blood, Urine Negative (Negative); Clarity CLOUDY (Clear); Glucose, Urine (Dipstick) Negative (Negative); Leukocyte Moderate (Negative); Nitrite Negative (Negative); Protein, Urine (Dipstick) Trace mg/dL (Neg-Trace); Specific Gravity, Urine 1.021 (1.002-1.036); Urobilinogen 0.2 mg/dL (0.2-1.0); pH, Urine 6.5 (5.0-9.0)
[2017-02-18 16:39] LABS: Bacteria/HPF 4+ HPF (None Seen); Pathc Cast-AUWi Flag 1.35 (0-2.49); Squamous Epithelial 0-3 HPF (0-3)
[2017-02-18 16:40] LABS: Yeast-AUWi Flag 42.9 (0-25.0)
[2017-02-18 16:53] LABS: Hyaline Casts/LPF 0-3 HYALINE CAST LPF (0-3 Hyaline); Yeast-All Forms None Seen HPF (None Seen)
--- NOTE | 2017-02-18 17:07 | HP ---
The patient is getting readmitted for a redislocation of her right hip hemiarthroplasty. The patient was seen and admitted on 02/14/2017, brought to the OR and her hip was relocated. She w as put in an abduction hip brace to keep her from dislocating and unfortunately, she got up to the re stroom today and her hip dislocated. She is currently in the emergency room resting on the gurney an d moderate amount of pain. Family is at the bedside. No numbness or tingling down the lower extremi ties. She is able to wiggle her toes on both sides, but her right lower extremity is definitely shor tened and she is still currently wearing the brace. PAST MEDICAL HISTORY: Dementia, hypertension, Parkinson's, diabetes, osteoarthritis, anxiety, depres haseeb, history of coronary artery disease. PAST SURGICAL HISTORY: Appendectomy, hysterectomy, bilateral hemiarthroplasty, cardiac catheterizati on, bladder suspension surgery, tonsillectomy. ALLERGIES: PENICILLIN, TESSALON PERLES, RED DYE. SOCIAL HISTORY: No alcohol or nicotine drug use. Resides with her family at home. FAMILY HISTORY: Noncontributory. REVIEW OF SYSTEMS: Hip pain. No other pertinent positive review of systems. PHYSICAL EXAMINATION: GENERAL: Well-nourished, well-developed female, resting on the gurney in room 25, in the ER, in no a cute distress. Speech clear, oriented, answering questions fairly well. HEENT: Normal exam. EXTREMITIES: No positive findings. Moving both. Equal size, shape, symmetry, normal bulk and tone. Left lower extremity: Normal exam. Right lower extremity: Shortened, moving well, abduction brac e in place, moving leg around thus causes some pain, but it is moderate as long as we do not move her too much. Bilateral DP, PTs pulses are intact. ASSESSMENT: Recurrent right hip dislocation. PLAN: Get her admitted. We are going to try and relocate the hip and tightened the brace down while she is in the emergency room. It took about a half an hour to get her sedated, and I have written a dmit orders for her. Labs are pending. She may need a revision of her hemiarthroplasty to prevent f urther dislocations. I have explained this to the family, but we will see how she does with the relo cation first. We will discuss further options after that. Get her admitted, pain control, keep her n .p.o. Hamilton Rangel for Dr. Quan Scott.
[2017-02-18] MEDS ORDERED: Midazolam HCl 2 mg/2 ml Vial ONE (20:22)
[2017-02-18] MEDS ORDERED: Fentanyl 100 MCG/2 ML VIAL ONE (21:13)
[2017-02-18] MEDS: Sodium Chloride 0.9% 100 ML IV SCH ×4 (23:11→23:31)
[2017-02-18] MEDS: Ketorolac Tromethamine 30 MG/ML VIAL IVP SCH ×2 (23:12→23:13)
[2017-02-18] MEDS: Carbidopa/Levodopa 25-100 mg Tablet PO SCH ×3 (23:12→23:15)
[2017-02-18] MEDS: Pramipexole Di-HCl 1 MG TAB PO SCH ×2 (23:14→23:15)
[2017-02-18] MEDS: Atorvastatin Calcium 10 MG TAB PO SCH (23:15)
[2017-02-18] MEDS: Senokot S 8.6-50 MG TAB PO SCH (23:29)
[2017-02-19] MEDS: Lorazepam 1 MG TAB PO PRN ×2 (00:04→20:31)
[2017-02-19] MEDS: Sodium Chloride 0.9% 1,000 ML IV SCH ×3 (02:44→21:44)
[2017-02-19] MEDS: Carbidopa/Levodopa 25-100 mg Tablet PO SCH ×5 (06:23→20:29)
[2017-02-19] MEDS: Ketorolac Tromethamine 30 MG/ML VIAL IVP SCH ×3 (06:24→17:02)
[2017-02-19] MEDS: Senokot S 8.6-50 MG TAB PO SCH ×2 (08:04→20:28)
[2017-02-19] MEDS: Fludrocortisone Acetate 0.1 MG TAB PO SCH (08:04)
[2017-02-19] MEDS: Aspirin 325 mg Enteric Coated Tablet PO SCH (08:04)
--- NOTE | 2017-02-19 08:08 | RAD ---
RIGHT HIP TWO VIEWS: History: Post reduction. Comparison: Earlier same day. FINDINGS: Satisfactory appearance of the post reduced right hip. IMPRESSION: Satisfactory post reduction imaging. POS: [facility]
[2017-02-19] MEDS: traMADol HCl 50 MG TAB PO PRN ×2 (10:50→18:43)
[2017-02-19] MEDS ORDERED: Lorazepam 1 MG TAB PO SCH ×2 (12:00→22:30)
--- NOTE | 2017-02-19 12:24 | PDOC.PN ---
- Subjective Encounter Start Date: 02/19/17 Encounter Start Time: 10:30 Subjective: Consulted for medical management. Continued pain to right hip. No other -: complaints. -: Home medications reviewed, on chart. - Objective Resuscitation Status: Resuscitation Status FULL:Full Resuscitation MAR Reviewed: Yes Vital Signs & Weight: Vital Signs (12 hours) Temp Pulse Resp BP Pulse Ox 02/19/17 07:40 97.5 F L 68 18 97/47 L 97 02/19/17 03:54 97.6 F 77 16 102/50 L 100 02/19/17 02:10 97.8 F 71 16 95/48 L 100 Weight Weight 106 lb I&O: 02/18/17 02/19/17 02/20/17 06:59 06:59 06:59 Intake Total 660 Output Total 300 Balance 360 Result Diagrams: 02/18/17 13:09 02/18/17 13:09 Phys Exam - Physical Examination Constitutional: NAD HEENT: PERRLA, moist MMs Neck: no nodes, no JVD, supple Respiratory: no wheezing, no rales, no rhonchi, clear to auscultation bilateral Cardiovascular: RRR, no significant murmur Gastrointestinal: soft, positive bowel sounds Musculoskeletal: no edema Neurological: non-focal, moves all 4 limbs Lymphatic: no nodes Psychiatric: normal affect, A&O x 3 Skin: no rash, normal turgor, cap refill <2 seconds Dx/Plan (1) Hip dislocation, right Code(s): S73.004A - UNSPECIFIED DISLOCATION OF RIGHT HIP, INITIAL ENCOUNTER Status: Resolved Comment: Reduced yesterday. Ortho managing. (2) Diastolic congestive heart failure Code(s): I50.30 - UNSPECIFIED DIASTOLIC (CONGESTIVE) HEART FAILURE Status: Chronic Qualifiers: Congestive heart failure chronicity: chronic Qualified Code(s): I50.32 - Chronic diastolic (congestive) heart failure (3) Parkinsons disease Code(s): G20 - PARKINSON'S DISEASE Status: Chronic (4) CAD (coronary artery disease) Code(s): I25.10 - ATHSCL HEART DISEASE OF [place] CORONARY ARTERY W/O ANG PCTRS Status: Chronic (5) Diabetes mellitus type 2 in nonobese Code(s): E11.9 - TYPE 2 DIABETES MELLITUS WITHOUT COMPLICATIONS Status: Chronic Comment: iss - Plan cont current plan of care Resume home medications. Not currently in CHF exaccerbation. Taking good -: oral this AM so will stop IV fluids. UA dirty so will culture, but no -: symptoms of infection at this time so will hold on antibiotics. * . - Discharge Day Encounter end time: 11:00 Review of Systems - Review of Systems Constitutional: reports: see HPI. denies: chills, fever EENTM: denies: eye pain, blurred vision, nose congestion, throat pain, throat swelling Respiratory: denies: cough, short of breath, wheezing Cardiology: denies: chest pain, palpitations Gastrointestinal/Abdominal: denies: abdominal pain, constipation, diarrhea, nausea, vomiting Genitourinary: denies: dysuria, hematuria Musculoskeletal: reports: see HPI Skin: denies: lesions, rash Neurological: denies: numbness, paresthesia, tingling
[2017-02-19] MEDS ORDERED: Dextrose 50% Abboject 50 ML SYRINGE SLOW IVP PRN (12:37)
[2017-02-19] MEDS ORDERED: HumaLOG 300 UNITS/3 ML VIAL SC PRN ×2 (12:37)
[2017-02-19] MEDS ORDERED: Dextrose 5% in Water 1,000 ML IV PRN (12:37)
[2017-02-19] MEDS: Pramipexole Di-HCl 1 MG TAB PO SCH ×2 (15:18→20:28)
--- NOTE | 2017-02-19 15:22 | OP ---
DATE OF SURGERY: 02/18/2017 PREOPERATIVE DIAGNOSIS: Dislocated right hip hemiarthroplasty. POSTOPERATIVE DIAGNOSIS: Dislocated right hip hemiarthroplasty. SURGICAL PROCEDURE: Closed reduction of right hip. ANESTHESIA: General. SURGEON: Quan Scott M.D. BLOOD LOSS: None. COMPLICATIONS: None. DRAINS: None. SPECIMEN: None. OUTCOME: Anatomic reduction of hip hemiarthroplasty. INDICATIONS: Patient is a pleasant 76-year-old lady with history of Parkinson's who is status post n ow right hip posterior dislocation of a hemiarthroplasty for the second time and under a week. Porsha bedolla was just getting up in her house and did not fall, but just twisted and had a simple dislocation p osteriorly. Patient now brought to the operating room due to inability to reduce the dislocation in the emergency room. Informed consent has been obtained. PROCEDURE: After the induction of general anesthesia, the patient was positioned supine on the OR ta ble and then a closed reduction maneuver was performed with the hip brought into 90 degrees of flexio n and slight internal rotation and then traction applied such that hip did reduce with a palpable and audible "clunk." Following this, AP and lateral C-arm images were then obtained that showed near an atomic alignment. The patient was, however, found to have an internal rotation contracture and I thi nk this clearly is predisposing this lady to this recurrent posterior dislocations. As such, the pat ient was placed in a knee immobilizer and abduction pillow and then transferred to recovery room in s table condition.
[2017-02-19] MEDS: Atorvastatin Calcium 10 MG TAB PO SCH (20:29)
[2017-02-19] MEDS ORDERED: Morphine 2 MG/ML SYRINGE SLOW IVP PRN (23:23)
[2017-02-20] MEDS: Carbidopa/Levodopa 25-100 mg Tablet PO SCH ×5 (06:07→21:51)
[2017-02-20] MEDS ORDERED: Levofloxacin 500 mg/D5W 100 ml Premix Bag ONE (09:40)
[2017-02-20] MEDS ORDERED: Clindamycin/D5W 900 mg/50 ml Premix Bag ONE (09:40)
[2017-02-20] MEDS ORDERED: Tranexamic Acid 1,000 MG/100 ML BAG ONE ×2 (10:05→13:58)
[2017-02-20] MEDS ORDERED: Midazolam HCl 2 mg/2 ml Vial ONE (10:09)
[2017-02-20] MEDS ORDERED: Fentanyl 100 MCG/2 ML VIAL ONE (10:09)
[2017-02-20] MEDS ORDERED: Zolpidem Tartrate 5 MG TAB PO PRN (10:38)
[2017-02-20] MEDS ORDERED: diphenhydrAMINE 25 MG CAP PO PRN ×2 (10:38→11:15)
[2017-02-20] MEDS ORDERED: Promethazine HCl 25 MG/ML VIAL IM PRN ×2 (10:38→11:15)
[2017-02-20] MEDS ORDERED: traMADol HCl 50 MG TAB PO PRN ×2 (10:38→11:15)
[2017-02-20] MEDS ORDERED: HYDROcodone/Acetaminophen 10/325 mg Tablet PO PRN ×2 (10:38)
[2017-02-20] MEDS ORDERED: Ondansetron HCl/PF 4 MG/2 ML Vial IVP PRN ×2 (10:38→11:15)
[2017-02-20] MEDS ORDERED: Tranexamic Acid 1,000 MG in Sodium Chloride 0.9% 100 ML IVPB SCH (10:45)
[2017-02-20] MEDS ORDERED: Bupivacaine/Epinephrine 0.25% 30 ML VIAL ONE (10:58)
[2017-02-20] MEDS ORDERED: HYDROcodone/Acetaminophen 5/325 mg Tablet PO PRN ×2 (11:15)
[2017-02-20] MEDS ORDERED: Promethazine HCl 25 MG SUPP PR PRN (11:15)
[2017-02-20] MEDS ORDERED: Fentanyl/Bupivacaine 250 ML in Premix Bag 1 BAG EPIDURAL SCH (11:15)
[2017-02-20] MEDS ORDERED: Naloxone HCl 0.4 mg/ml Vial IVP PRN (11:15)
[2017-02-20] MEDS ORDERED: Bupivacaine 0.25% 10 ML VIAL EPIDURAL PRN (11:15)
[2017-02-20] MEDS ORDERED: diphenhydrAMINE 50 MG/ML VIAL IM PRN (11:15)
[2017-02-20] MEDS ORDERED: diphenhydrAMINE 50 MG/ML VIAL IVP PRN (11:15)
[2017-02-20] MEDS ORDERED: Naloxone HCl 0.4 mg/ml Vial IV PRN (11:15)
[2017-02-20] MEDS ORDERED: Eucerin (Mineral Oil/Petrolatum,White) 30 gm Jar TOP PRN (11:15)
[2017-02-20] MEDS ORDERED: Bupivacaine 0.25% HCL 30 ML VIAL ONE (13:37)
--- NOTE | 2017-02-20 14:28 | OP ---
PREOPERATIVE DIAGNOSIS: Failed hemiarthroplasty of the right hip due to chronic instability. POSTOPERATIVE DIAGNOSIS: Failed hemiarthroplasty of the right hip due to chronic instability. PROCEDURE: Conversion of previous hip surgery, total hip arthroplasty and adductor tenotomy. SURGEON: Augie Broussard M.D. 3RD MATE: Quan Scott M.D. BLOOD LOSS: 300. SPECIMEN: None. DRAINS: None. COMPLICATIONS: None. DESCRIPTION OF PROCEDURE: The patient was taken to the operative suite where general anesthesia was induced. The patient was placed in right lateral decubitus position. I opened up the old scar. Kvng dinge approach was made to excise the entire anterior capsule. Hip was dislocated. I removed the he ad. I exposed the acetabulum circumferentially and acetabulum was reamed up to size 50. A 50 mm PSL cup was inserted. Two screws were applied to enhance fixation although there was excellent press fi t without screws. The MDM liner was deployed. I then used a Bryan. We then used a DePuy 22 mm he ad +8.5 with a Shreve MDM size 42 head. This was assembled on the back table and applied to the DeP uy stem. Hip was reduced and found to be stable throughout a range of motion. Irrigation was perfor med. Hemostasis was obtained. Abductor mechanism was repaired using #1 Vicryl. The IT band was rep aired #2 Quill. Subcutaneous was closed with 0 Quill, skin was closed with 2-0 Prolene and sterile d ressings applied. There were no complications.
[2017-02-20] MEDS: Pramipexole Di-HCl 1 MG TAB PO SCH ×2 (14:41→21:51)
[2017-02-20] MEDS: Fludrocortisone Acetate 0.1 MG TAB PO SCH (14:42)
[2017-02-20] MEDS: Sodium Chloride 0.9% 1,000 ML IV SCH ×2 (14:42→17:50)
[2017-02-20] MEDS: Ketorolac Tromethamine 30 MG/ML VIAL IVP SCH ×3 (14:43→23:16)
--- NOTE | 2017-02-20 15:28 | PDOC.PN ---
- Subjective Encounter Start Date: 02/20/17 Encounter Start Time: 15:27 Pt seen for followup re: chest pain. Denies shortness of breath. No nausea or vomiting. - Objective Resuscitation Status: Resuscitation Status FULL:Full Resuscitation MAR Reviewed: Yes Vital Signs & Weight: Vital Signs (12 hours) Temp Pulse Resp BP Pulse Ox 02/20/17 07:16 97.5 F L 78 14 165/63 H 96 02/20/17 05:00 97.9 F 81 17 155/83 H 96 Weight Admit Weight 106 lb Weight 106 lb I&O: 02/19/17 02/20/17 02/21/17 06:59 06:59 06:59 Intake Total 660 2260 Output Total 300 2040 Balance 360 220 Result Diagrams: 02/18/17 13:09 02/18/17 13:09 Additional Labs: Accuchecks 02/19/17 02/19/17 20:58 17:11 POC Glucose 186 H 175 H Phys Exam - Physical Examination Constitutional: NAD HEENT: moist MMs, oral pharynx no lesions Neck: supple Respiratory: clear to auscultation bilateral Cardiovascular: RRR Gastrointestinal: soft Musculoskeletal: pulses present s/p R hip surgery Neurological: moves all 4 limbs Psychiatric: normal affect Skin: no rash Dx/Plan (1) Chest pain Code(s): R07.9 - CHEST PAIN, UNSPECIFIED Status: Acute (2) CAD (coronary artery disease) Code(s): I25.10 - ATHSCL HEART DISEASE OF [place] CORONARY ARTERY W/O ANG PCTRS Status: Chronic (3) Diabetes mellitus type 2 in nonobese Code(s): E11.9 - TYPE 2 DIABETES MELLITUS WITHOUT COMPLICATIONS Status: Chronic Comment: iss (4) Parkinsons disease Code(s): G20 - PARKINSON'S DISEASE Status: Chronic (5) Protein-calorie malnutrition, mild Code(s): E44.1 - MILD PROTEIN-CALORIE MALNUTRITION Status: Chronic - Plan * . Check EKG, cardiac enzymes. Monitor vital signs, titrate antihypertensives as needed. Continue accuchecks, insulin sliding scale. s/p R hip surgery. DVT prophylaxis and pain management per orthopedic service. Review of Systems - Review of Systems Respiratory: negative: Cough, Dry, Shortness of Breath, Hemoptysis, SOB with Excertion, Pleuritic Pain, Sputum, Wheezing Cardiovascular: chest pain. negative: palpitations, orthopnea, paroxysmal nocturnal dyspnea, edema, light headedness - Medications/Allergies Allergies/Adverse Reactions: Allergies Allergy/AdvReac Type Severity Reaction Status Date / Time benzonatate Allergy Verified 01/06/17 15:11 [From Marge Dueñas] iodine Allergy Verified 01/06/17 15:11 Penicillins Allergy Verified 01/06/17 15:11 red dye Allergy Verified 01/06/17 15:11 adhesives Allergy Uncoded 01/06/17 15:39 Medications: Current Medications Acetaminophen (Tylenol) 650 mg PO Q4H PRN PRN Reason: DAMIAN/ T > 101F; Mild Pain (1-3) Hydrocodone Bitart/Acetaminophen ([place] 5/325) 1 tab PO Q4H PRN PRN Reason: Mild Pain 0-3 Hydrocodone Bitart/Acetaminophen ([place] 5/325) 2 tab PO Q4H PRN PRN Reason: For Moderate Pain 4-6 Aspirin (Aspirin) 325 mg PO BID [facility] Atorvastatin Calcium (Lipitor) 10 mg PO HS [facility] Last Admin: 02/19/17 20:29 Dose: 10 mg Bupivacaine HCl (Marcaine) 5 ml EPIDURAL ONE PRN PRN Reason: UNCONTROLLED PAIN Stop: 02/20/17 23:00 Carbidopa/Levodopa (Sinemet 25-100) 2 tab PO 0600,1100,1500,1800 [facility] Last Admin: 02/20/17 14:44 Dose: Not Given Carbidopa/Levodopa (Sinemet 25-100) 2 tab PO 2100 [facility] Last Admin: 02/19/17 20:29 Dose: 2 tab Dextrose/Water (Dextrose 50%) 25 gm SLOW IVP PRN PRN PRN Reason: Hypoglycemia Diphenhydramine HCl (Benadryl) 25 mg PO Q3H PRN PRN Reason: Itching Diphenhydramine HCl (Benadryl) 25 mg IM Q3H PRN PRN Reason: Itching Diphenhydramine HCl (Benadryl) 25 mg IVP Q3H PRN PRN Reason: Itching Ferrous Gluconate (Fergon) 324 mg PO BID-[facility] Fludrocortisone Acetate (Florinef) 0.1 mg PO QAM [facility] Last Admin: 02/20/17 14:42 Dose: Not Given Glucagon (Glucagon) 1 mg IM PRN PRN PRN Reason: Hypoglycemia Dextrose/Water (D5w) 1,000 mls @ 0 mls/hr IV .Q0M PRN; As Directed PRN Reason: Hypoglycemia Levofloxacin 500 mg/ Device 100 mls @ 100 mls/hr IVPB 1000 [facility] Stop: 02/21/17 10:59 Sodium Chloride (Normal Saline 0.9%) 1,000 mls @ 100 mls/hr IV .Q10H [facility] Last Admin: 02/20/17 14:42 Dose: 1,000 mls Vancomycin HCl 1.5 gm/ Sodium (Chloride) 300 mls @ 200 mls/hr IVPB 2300 [facility] Stop: 02/21/17 00:29 Fentanyl Citrate 250 ml/ (Device) 250 mls @ 6 mls/hr EPIDURAL INF [facility] Insulin Human Lispro (Humalog) 0 units SC .MILD SLIDING SCALE PRN PRN Reason: Mild Correctional Scale Insulin Human Lispro (Humalog) 0 units SC .BEDTIME SLIDING SC PRN PRN Reason: Bedtime Correctional Scale Iron/Minerals/Multivitamins (Theragran M) 1 tab PO DAILY [facility] Ketorolac Tromethamine (Toradol) 15 mg IVP Q6HR [facility] Stop: 02/22/17 06:01 Last Admin: 02/20/17 14:43 Dose: Not Given Mineral Oil/White Petrolatum (Eucerin Cream) 0 gm TOP PRN PRN PRN Reason: Itching Miscellaneous Medication (Pharmacy To Dose) 1 each PO ONE [facility] Stop: 02/28/17 12:46 Naloxone HCl (Narcan) 0.2 mg IV Q5MIN PRN PRN Reason: RR <=8 OR OBTUNDED/UNAROUSABLE Naloxone HCl (Narcan) 0.1 mg IVP Q15MIN PRN PRN Reason: URINARY RETENTION Ondansetron HCl (Zofran) 4 mg IVP Q6H PRN PRN Reason: Nausea/Vomiting Pramipexole Dihydrochloride (Mirapex) 2 mg PO 1500 [facility] Last Admin: 02/20/17 14:41 Dose: 2 mg Pramipexole Dihydrochloride (Mirapex) 2 mg PO HS [facility] Last Admin: 02/19/17 20:28 Dose: 2 mg Promethazine HCl (Phenergan) 12.5 mg IM Q4H PRN PRN Reason: Nausea/Vomiting Promethazine HCl (Phenergan Suppository) 25 mg IA Q4H PRN PRN Reason: Nausea/Vomiting Senna/Docusate Sodium (Senokot S) 2 tab PO BID OMI Sodium Chloride (Flush - Normal Saline) 10 ml IVF PRN PRN PRN Reason: Saline Flush Tramadol HCl (Ultram) 50 mg PO Q6H PRN PRN Reason: Mild Pain 1-3 Tramadol HCl (Ultram) 100 mg PO Q6H PRN PRN Reason: Moderate Pain 4-6 Zolpidem Tartrate (Ambien) 5 mg PO HSPRN PRN PRN Reason: Insomnia
[2017-02-20 16:40] LABS: Troponin I 0.031 ng/mL (< 0.028)
--- NOTE | 2017-02-20 16:56 | RAD ---
RIGHT HIP TWO VIEWS: HISTORY: Postop. COMPARISON: 02/18/2017 FINDINGS: The acetabular dislocation has been fixed. There are now two screws placed through the acetabular cu ff. The femoral prosthesis appears unchanged. IMPRESSION: Postoperative changes to the right hip. Acetabular cuff has been fixed with two screws. POS: [facility]
[2017-02-20] MEDS ORDERED: Lidocaine 1% PF 5 ML VIAL ONE (16:57)
[2017-02-20] MEDS ORDERED: Ondansetron HCl/PF 4 MG/2 ML Vial ONE (16:57)
[2017-02-20] MEDS ORDERED: Propofol 200 MG/20 ML VIAL ONE (16:57)
[2017-02-20] MEDS ORDERED: Glycopyrrolate 0.2 MG/ML 5 ML SYRINGE ONE (16:57)
[2017-02-20] MEDS ORDERED: ePHEDrine/0.9% NaCl/PF SYRINGE 50 mg/10 ml ONE (16:57)
[2017-02-20] MEDS ORDERED: Morphine 4 MG/ML VIAL SLOW IVP SCH (17:15)
[2017-02-20] MEDS ORDERED: Lorazepam 1 MG TAB PO PRN (19:00)
[2017-02-20 20:32] LABS: Troponin I 0.031 ng/mL (< 0.028)
[2017-02-20 20:33] LABS: CKMB 6.7 ng/mL (0-6.6); Critical Call CKMBM RESULT DECREASING
[2017-02-20] MEDS: Aspirin 325 MG TAB PO SCH (21:50)
[2017-02-20] MEDS: Atorvastatin Calcium 10 MG TAB PO SCH (21:50)
[2017-02-20] MEDS ORDERED: Vancomycin HCl 1.5 GM in Sodium Chloride 0.9% 250 ML 300 ML IVPB SCH (23:00)
[2017-02-20] MEDS ORDERED: Fludrocortisone Acetate 0.1 MG TAB PO SCH (23:15)
[2017-02-20] MEDS: Nitroglycerin 2% Ointment 1 INCH/1 GM Packet TOP SCH (23:20)
[2017-02-21] MEDS: Morphine 4 MG/ML VIAL SLOW IVP PRN ×3 (00:10→19:42)
[2017-02-21] MEDS: Zolpidem Tartrate 5 MG TAB PO PRN ×2 (02:03→20:35)
[2017-02-21] MEDS: Ketorolac Tromethamine 30 MG/ML VIAL IVP SCH ×4 (05:27→23:23)
[2017-02-21] MEDS: Carbidopa/Levodopa 25-100 mg Tablet PO SCH ×5 (05:31→20:35)
[2017-02-21 05:34] LABS: Hemoglobin 8.2 g/dL (12.0-16.0); Mean Corpuscular HGB CONC 31.9 g/dL (32.0-36.0); Mean Corpuscular Hemoglobin 30.6 pg (27.0-31.0); Mean Corpuscular Volume 96.1 fl (81.0-99.0); Mean Platelet Volume 7.4 fL (7.4-10.4); Platelet Count 192 thou/uL (130-400); RBC Distribution Width 13.6 % (11.5-14.5); Red Blood Cell (RBC) Count 2.67 mill/uL (4.20-5.40); White Blood Cell (WBC) Count 6.4 thou/uL (4.8-10.8)
[2017-02-21] MEDS: Nitroglycerin 2% Ointment 1 INCH/1 GM Packet TOP SCH ×3 (05:51→20:42)
[2017-02-21] MEDS: Sodium Chloride 0.9% 1,000 ML IV SCH ×2 (07:35→20:26)
[2017-02-21] MEDS: Senokot S 8.6-50 MG TAB PO SCH ×2 (08:54→20:35)
[2017-02-21] MEDS: traMADol HCl 50 MG TAB PO PRN ×2 (08:54→20:35)
[2017-02-21] MEDS: Ferrous Gluconate 324 MG TAB PO SCH ×2 (08:54→17:18)
[2017-02-21] MEDS: Aspirin 325 MG TAB PO SCH ×2 (08:54→20:34)
[2017-02-21] MEDS: Multivitamin W/ Minerals 1 TAB PO SCH (08:55)
[2017-02-21] MEDS: Fludrocortisone Acetate 0.1 MG TAB PO SCH (08:56)
[2017-02-21] MEDS ORDERED: Fentanyl 100 MCG/2 ML VIAL ONE ×4 (10:59→13:13)
[2017-02-21] MEDS ORDERED: Haloperidol Lactate 5 MG/ML VIAL IM SCH (11:00)
[2017-02-21] MEDS: Fentanyl 100 MCG/2 ML VIAL SLOW IVP SCH ×4 (11:26→13:46)
[2017-02-21] MEDS ORDERED: Acetaminophen 1,000 MG in Premix Bag 1 BAG IVPB SCH (12:00)
--- NOTE | 2017-02-21 12:18 | CON ---
DATE OF CONSULTATION: 02/21/2017 REASON FOR CONSULTATION: Borderline troponin elevation in the postoperative status. HISTORY OF PRESENT ILLNESS: Ms. Alvarado is a 76-year-old woman previously seen and evaluated by Dr. Santoro. The patient was brought to the hospital on this occasion with a hip fracture and she under went successful surgery by Dr. Broussard yesterday. The patient last night became very uncomfortable, h ad pain all over, including her chest and cardiac enzymes were drawn, which were barely detectable. She was sent to the telemetry for further evaluation. The patient is confused and disoriented and ve ry uncomfortable now. She is having pain all over. PAST MEDICAL HISTORY: The patient has a history of cardiac catheterization done 08/[address] Salvador mccord. She was found to have 3-vessel disease with ejection fraction of 30%-35%, moderate left ventric ular systolic dysfunction. The patient was treated medically, as she had been seen by Dr. Jhonatan mehta, and apparently, the patient preferred medical therapy. The patient was admitted on this occasion with hip problems and underwent surgery as outlined in the chart. MEDICATIONS: 1. Carbidopa/levodopa for Parkinson's. 2. Aspirin. 3. Atorvastatin. REVIEW OF SYSTEMS: Not obtainable. She is confused and disoriented. FAMILY HISTORY: Unavailable. SOCIAL HISTORY: Accompanied by family members, who are very supportive of her. PHYSICAL EXAMINATION: GENERAL: On examination, this is a very uncomfortable, confused, and disoriented 76-year-old woman, who looks older than her chronologic age of 76. VITAL SIGNS: Blood pressure 126/76, pulse 88 and regular. HEENT: Eyes, sclerae nonicteric. Mouth, mucous membranes moist. NECK: Supple. No lymphadenopathy. LUNGS: Clear. CARDIAC: Normal S1, normal S2. No murmur, rub, or gallop. ABDOMEN: Soft, nontender. EXTREMITIES: Warm and dry. NEUROLOGIC: She is confused and disoriented. Moving about the bed. The family is helping her to tr y to relax as best they can, but she is very agitated. LABORATORY AND X-RAY FINDINGS: The EKG, 02/20/2017, at 04:38 showed no ischemia. Troponin levels ar e barely detectable at 0.031. ASSESSMENT: 1. Probably demand ischemia. 2. Coronary artery disease, best treated medically. 3. Status post hip surgery. PLAN: 1. They are attempting to get pain control with Fentanyl. 2. Continue aspirin. 3. The main therapy will be to try to get pain control. If possible beta blockers could be given, b ut at this point I do not think she can take oral medicines and intravenous beta yolanda do not appea r to be indicated at this point. I will start low-dose metoprolol this evening if she is able to do that.
--- NOTE | 2017-02-21 12:40 | PDOC.PN ---
- Subjective Encounter Start Date: 02/21/17 Encounter Start Time: 08:20 Pt seen for followup re: chest pain. Appears to be in pain, not answering questions. Unable to complete ROS. - Objective Resuscitation Status: Resuscitation Status FULL:Full Resuscitation MAR Reviewed: Yes Vital Signs & Weight: Vital Signs (12 hours) Temp Pulse Resp BP BP Pulse Ox 02/21/17 08:55 98.7 F 88 22 H 126/76 96 02/21/17 04:20 98.4 F 72 18 117/56 L 93 L 02/21/17 01:29 87 20 96/45 L 95 Weight Admit Weight 106 lb Weight 106 lb I&O: 02/20/17 02/21/17 02/22/17 06:59 06:59 06:59 Intake Total 2260 1359 Output Total 2040 325 Balance 220 1034 Result Diagrams: 02/21/17 05:10 02/18/17 13:09 Additional Labs: Accuchecks 02/21/17 02/21/17 02/20/17 12:00 05:44 21:02 POC Glucose 88 114 H 113 H 02/20/17 05:58 POC Glucose 115 H EKG Reviewed by me: Yes (Tele: sinus tachycardia) Phys Exam - Physical Examination Constitutional: NAD HEENT: moist MMs Neck: supple Respiratory: clear to auscultation bilateral S1, S2, tachy, reg s/p R hip surgery Neurological: moves all 4 limbs Deviation from normal: Appears to be in pain Dx/Plan (1) Chest pain Code(s): R07.9 - CHEST PAIN, UNSPECIFIED Status: Acute (2) CAD (coronary artery disease) Code(s): I25.10 - ATHSCL HEART DISEASE OF [place] CORONARY ARTERY W/O ANG PCTRS Status: Chronic (3) Diabetes mellitus type 2 in nonobese Code(s): E11.9 - TYPE 2 DIABETES MELLITUS WITHOUT COMPLICATIONS Status: Chronic Comment: iss (4) Parkinsons disease Code(s): G20 - PARKINSON'S DISEASE Status: Chronic (5) Protein-calorie malnutrition, mild Code(s): E44.1 - MILD PROTEIN-CALORIE MALNUTRITION Status: Chronic - Plan * . Troponin I stable. No arrhythmias on telemetry. Pain medications being managed by pain service. Monitor vital signs, titrate antihypertensives as needed. Review of Systems - Medications/Allergies Allergies/Adverse Reactions: Allergies Allergy/AdvReac Type Severity Reaction Status Date / Time benzonatate Allergy Verified 01/06/17 15:11 [From Marge Dueñas] iodine Allergy Verified 01/06/17 15:11 Penicillins Allergy Verified 01/06/17 15:11 red dye Allergy Verified 01/06/17 15:11 adhesives Allergy Uncoded 01/06/17 15:39 Medications: Current Medications Acetaminophen (Tylenol) 650 mg PO Q4H PRN PRN Reason: DAMIAN/ T > 101F; Mild Pain (1-3) Aspirin (Aspirin) 325 mg PO BID [facility] Last Admin: 02/21/17 08:54 Dose: 325 mg Atorvastatin Calcium (Lipitor) 10 mg PO HS [facility] Last Admin: 02/20/17 21:50 Dose: 10 mg Carbidopa/Levodopa (Sinemet 25-100) 2 tab PO 0600,1100,1500,1800 [facility] Last Admin: 02/21/17 11:49 Dose: 2 tab Carbidopa/Levodopa (Sinemet 25-100) 2 tab PO 2100 [facility] Last Admin: 02/20/17 21:51 Dose: 2 tab Dextrose/Water (Dextrose 50%) 25 gm SLOW IVP PRN PRN PRN Reason: Hypoglycemia Diphenhydramine HCl (Benadryl) 25 mg PO Q3H PRN PRN Reason: Itching Diphenhydramine HCl (Benadryl) 25 mg IM Q3H PRN PRN Reason: Itching Diphenhydramine HCl (Benadryl) 25 mg IVP Q3H PRN PRN Reason: Itching Fentanyl (Sublimaze) 50 mcg SLOW IVP Q1H PRN PRN Reason: Pain Fentanyl (Sublimaze) 50 mcg SLOW IVP ASDIR [facility] Stop: 02/21/17 14:00 Ferrous Gluconate (Fergon) 324 mg PO BID-WM [facility] Last Admin: 02/21/17 08:54 Dose: 324 mg Fludrocortisone Acetate (Florinef) 0.1 mg PO QAM [facility] Last Admin: 02/21/17 08:56 Dose: 0.1 mg Glucagon (Glucagon) 1 mg IM PRN PRN PRN Reason: Hypoglycemia Haloperidol Lactate (Haldol) 4 mg IM NOW [facility] Stop: 02/21/17 13:00 Last Admin: 02/21/17 11:29 Dose: Not Given Dextrose/Water (D5w) 1,000 mls @ 0 mls/hr IV .Q0M PRN; As Directed PRN Reason: Hypoglycemia Sodium Chloride (Normal Saline 0.9%) 1,000 mls @ 100 mls/hr IV .Q10H [facility] Last Admin: 02/21/17 07:35 Dose: 1,000 mls Fentanyl Citrate 250 ml/ (Device) 250 mls @ 6 mls/hr EPIDURAL INF OMI Acetaminophen 1,000 mg/ Device 100 mls @ 400 mls/hr IVPB Q6HR [facility] Stop: 02/22/17 12:01 Insulin Human Lispro (Humalog) 0 units SC .MILD SLIDING SCALE PRN PRN Reason: Mild Correctional Scale Insulin Human Lispro (Humalog) 0 units SC .BEDTIME SLIDING SC PRN PRN Reason: Bedtime Correctional Scale Iron/Minerals/Multivitamins (Theragran M) 1 tab PO DAILY [facility] Last Admin: 02/21/17 08:55 Dose: 1 tab Ketorolac Tromethamine (Toradol) 15 mg IVP Q6HR [facility] Stop: 02/22/17 06:01 Last Admin: 02/21/17 11:49 Dose: 15 mg Metoprolol Tartrate (Lopressor) 12.5 mg PO BID [facility] Mineral Oil/White Petrolatum (Eucerin Cream) 0 gm TOP PRN PRN PRN Reason: Itching Miscellaneous Medication (Pharmacy To Dose) 1 each PO ONE [facility] Stop: 02/28/17 12:46 Morphine Sulfate (Morphine) 4 mg SLOW IVP Q2H PRN PRN Reason: Pain Last Admin: 02/21/17 00:10 Dose: 4 mg Naloxone HCl (Narcan) 0.2 mg IV Q5MIN PRN PRN Reason: RR <=8 OR OBTUNDED/UNAROUSABLE Naloxone HCl (Narcan) 0.1 mg IVP Q15MIN PRN PRN Reason: URINARY RETENTION Nitroglycerin (Nitro-Bid 2% Ointment) 1 inch TOP Q8HR [facility] Last Admin: 02/21/17 05:51 Dose: Not Given Ondansetron HCl (Zofran) 4 mg IVP Q6H PRN PRN Reason: Nausea/Vomiting Pramipexole Dihydrochloride (Mirapex) 2 mg PO 1500 [facility] Last Admin: 02/20/17 14:41 Dose: 2 mg Pramipexole Dihydrochloride (Mirapex) 2 mg PO HS OMI Last Admin: 02/20/17 21:51 Dose: 2 mg Promethazine HCl (Phenergan) 12.5 mg IM Q4H PRN PRN Reason: Nausea/Vomiting Promethazine HCl (Phenergan Suppository) 25 mg [place] Q4H PRN PRN Reason: Nausea/Vomiting Senna/Docusate Sodium (Senokot S) 2 tab PO BID [facility] Last Admin: 02/21/17 08:54 Dose: 2 tab Sodium Chloride (Flush - Normal Saline) 10 ml IVF PRN PRN PRN Reason: Saline Flush Tramadol HCl (Ultram) 50 mg PO Q6H PRN PRN Reason: Mild Pain 1-3 Tramadol HCl (Ultram) 100 mg PO Q6H PRN PRN Reason: Moderate Pain 4-6 Last Admin: 02/21/17 08:54 Dose: 100 mg Zolpidem Tartrate (Ambien) 5 mg PO HSPRN PRN PRN Reason: Insomnia Last Admin: 02/21/17 02:03 Dose: 5 mg
[2017-02-21] MEDS: fentaNYL 50 mcg/hour Patch TD SCH (13:42)
[2017-02-21] MEDS: Pramipexole Di-HCl 1 MG TAB PO SCH ×2 (14:23→20:35)
[2017-02-21] MEDS: Fentanyl 100 MCG/2 ML VIAL SLOW IVP PRN (15:20)
[2017-02-21] MEDS ORDERED: oxyCODONE/Acetaminophen 5 mg/325 mg Tablet PO PRN (17:06)
[2017-02-21] MEDS: oxyCODONE/Acetaminophen 5 mg/325 mg Tablet PO PRN (17:17)
[2017-02-21] MEDS: Atorvastatin Calcium 10 MG TAB PO SCH (20:34)
[2017-02-21] MEDS: Metoprolol Tartrate 25 MG TAB PO SCH (20:41)
[2017-02-21] MEDS: Lorazepam 2 MG/ML VIAL SLOW IVP PRN (23:24)
[2017-02-22] MEDS: Sodium Chloride 0.9% 1,000 ML IV SCH ×3 (03:25→23:15)
[2017-02-22 04:19] LABS: Hemoglobin 7.8 g/dL (12.0-16.0); Mean Corpuscular HGB CONC 31.7 g/dL (32.0-36.0); Mean Corpuscular Hemoglobin 30.4 pg (27.0-31.0); Mean Corpuscular Volume 95.8 fl (81.0-99.0); Mean Platelet Volume 7.4 fL (7.4-10.4); Platelet Count 189 thou/uL (130-400); RBC Distribution Width 13.6 % (11.5-14.5); Red Blood Cell (RBC) Count 2.56 mill/uL (4.20-5.40)
[2017-02-22] MEDS: Ketorolac Tromethamine 30 MG/ML VIAL IVP SCH (05:16)
[2017-02-22] MEDS: Nitroglycerin 2% Ointment 1 INCH/1 GM Packet TOP SCH ×3 (05:17→21:21)
[2017-02-22] MEDS: Carbidopa/Levodopa 25-100 mg Tablet PO SCH ×5 (05:17→21:06)
[2017-02-22] MEDS: Metoprolol Tartrate 25 MG TAB PO SCH ×2 (07:09→21:07)
[2017-02-22] MEDS: Senokot S 8.6-50 MG TAB PO SCH ×2 (07:17→21:06)
[2017-02-22] MEDS: traMADol HCl 50 MG TAB PO PRN ×2 (07:18→13:37)
[2017-02-22] MEDS: Multivitamin W/ Minerals 1 TAB PO SCH (07:19)
[2017-02-22] MEDS: Aspirin 325 MG TAB PO SCH ×2 (07:19→21:07)
[2017-02-22] MEDS: Ferrous Gluconate 324 MG TAB PO SCH ×2 (07:20→17:47)
[2017-02-22] MEDS: Fludrocortisone Acetate 0.1 MG TAB PO SCH (08:15)
[2017-02-22] MEDS: Morphine 4 MG/ML VIAL SLOW IVP PRN (09:54)
[2017-02-22 13:08] LABS: Troponin I 0.065 ng/mL (< 0.028)
[2017-02-22] MEDS: Bisacodyl 10 MG SUPP PR PRN (13:37)
--- NOTE | 2017-02-22 14:47 | PDOC.PN ---
- Subjective Encounter Start Date: 02/22/17 Encounter Start Time: 11:00 Pt seen for followup re; diabetes mellitus. No pain at this time, resting comfortable. - Objective Resuscitation Status: Resuscitation Status FULL:Full Resuscitation MAR Reviewed: Yes Vital Signs & Weight: Vital Signs (12 hours) Temp Pulse Resp Pulse Ox 02/22/17 12:00 98.4 F 02/22/17 08:13 93 L 02/22/17 08:00 98.4 F 78 20 100 02/22/17 07:00 98.4 F 02/22/17 04:00 98.3 F Weight Admit Weight 106 lb Weight 106 lb Most Recent Monitor Data Heart Rate from ECG 88 NIBP 148/50 NIBP BP-Mean 67 Respiration from ECG 12 SpO2 94 I&O: 02/21/17 02/22/17 02/23/17 06:59 06:59 06:59 Intake Total 1359 1192 Output Total 325 570 328 Balance 1034 622 -328 Result Diagrams: 02/22/17 03:22 02/18/17 13:09 Additional Labs: Accuchecks 02/22/17 02/22/17 02/21/17 11:35 05:37 20:47 POC Glucose 99 90 101 EKG Reviewed by me: Yes (tele: NSR) Phys Exam - Physical Examination Constitutional: NAD HEENT: moist MMs Neck: supple Respiratory: clear to auscultation bilateral Cardiovascular: RRR Gastrointestinal: soft s/p R hip surgery Psychiatric: normal affect Dx/Plan (1) Diabetes mellitus type 2 in nonobese Code(s): E11.9 - TYPE 2 DIABETES MELLITUS WITHOUT COMPLICATIONS Status: Chronic Comment: iss (2) CAD (coronary artery disease) Code(s): I25.10 - ATHSCL HEART DISEASE OF [place] CORONARY ARTERY W/O ANG PCTRS Status: Chronic (3) Parkinsons disease Code(s): G20 - PARKINSON'S DISEASE Status: Chronic (4) Protein-calorie malnutrition, mild Code(s): E44.1 - MILD PROTEIN-CALORIE MALNUTRITION Status: Chronic (5) Chest pain Code(s): R07.9 - CHEST PAIN, UNSPECIFIED Status: Resolved - Plan * . Continue accuchecks, insulin sliding scale. Monitor vital signs, tirate antihypertensives as needed. Okay to transfer pt to orthopedic floor. pain management and DVT prophylaxis per primary service. Review of Systems - Review of Systems Respiratory: negative: Cough, Dry, Shortness of Breath, Hemoptysis, SOB with Excertion, Pleuritic Pain, Sputum, Wheezing Cardiovascular: negative: chest pain, palpitations, orthopnea, paroxysmal nocturnal dyspnea, edema, light headedness, other - Medications/Allergies Allergies/Adverse Reactions: Allergies Allergy/AdvReac Type Severity Reaction Status Date / Time benzonatate Allergy Verified 01/06/17 15:11 [From Marge Dueñas] iodine Allergy Verified 01/06/17 15:11 Penicillins Allergy Verified 01/06/17 15:11 red dye Allergy Verified 01/06/17 15:11 adhesives Allergy Uncoded 01/06/17 15:39 Medications: Current Medications Acetaminophen (Tylenol) 650 mg PO Q4H PRN PRN Reason: DAMIAN/ T > 101F; Mild Pain (1-3) Aspirin (Aspirin) 325 mg PO BID [facility] Last Admin: 02/22/17 07:19 Dose: 325 mg Atorvastatin Calcium (Lipitor) 10 mg PO HS [facility] Last Admin: 02/21/17 20:34 Dose: 10 mg Bisacodyl (Dulcolax) 10 mg [place] DAILYPRN PRN PRN Reason: Constipation Last Admin: 02/22/17 13:37 Dose: 10 mg Carbidopa/Levodopa (Sinemet 25-100) 2 tab PO 0600,1100,1500,1800 [facility] Last Admin: 02/22/17 11:37 Dose: 2 tab Carbidopa/Levodopa (Sinemet 25-100) 2 tab PO 2100 [facility] Last Admin: 02/21/17 20:35 Dose: 2 tab Dextrose/Water (Dextrose 50%) 25 gm SLOW IVP PRN PRN PRN Reason: Hypoglycemia Diphenhydramine HCl (Benadryl) 25 mg PO Q3H PRN PRN Reason: Itching Diphenhydramine HCl (Benadryl) 25 mg IM Q3H PRN PRN Reason: Itching Diphenhydramine HCl (Benadryl) 25 mg IVP Q3H PRN PRN Reason: Itching Fentanyl (Sublimaze) 50 mcg SLOW IVP Q1H PRN PRN Reason: Pain Last Admin: 02/21/17 15:20 Dose: 50 mcg Fentanyl (Duragesic) 50 mcg TD Q3D@1400 [facility] Last Admin: 02/21/17 13:42 Dose: 50 mcg Ferrous Gluconate (Fergon) 324 mg PO BID-WM [facility] Last Admin: 02/22/17 07:20 Dose: 324 mg Fludrocortisone Acetate (Florinef) 0.1 mg PO QAM [facility] Last Admin: 02/22/17 08:15 Dose: Not Given Glucagon (Glucagon) 1 mg IM PRN PRN PRN Reason: Hypoglycemia Dextrose/Water (D5w) 1,000 mls @ 0 mls/hr IV .Q0M PRN; As Directed PRN Reason: Hypoglycemia Sodium Chloride (Normal Saline 0.9%) 1,000 mls @ 100 mls/hr IV .Q10H [facility] Last Admin: 02/22/17 03:25 Dose: 1,000 mls Insulin Human Lispro (Humalog) 0 units SC .MILD SLIDING SCALE PRN PRN Reason: Mild Correctional Scale Insulin Human Lispro (Humalog) 0 units SC .BEDTIME SLIDING SC PRN PRN Reason: Bedtime Correctional Scale Iron/Minerals/Multivitamins (Theragran M) 1 tab PO DAILY [facility] Last Admin: 02/22/17 07:19 Dose: 1 tab Lorazepam (Ativan) 0.5 mg SLOW IVP HSPRN PRN PRN Reason: . Last Admin: 02/21/17 23:24 Dose: 0.5 mg Metoprolol Tartrate (Lopressor) 12.5 mg PO BID [facility] Last Admin: 02/22/17 07:09 Dose: Not Given Mineral Oil/White Petrolatum (Eucerin Cream) 0 gm TOP PRN PRN PRN Reason: Itching Miscellaneous Medication (Pharmacy To Dose) 1 each PO ONE [facility] Stop: 02/28/17 12:46 Morphine Sulfate (Morphine) 4 mg SLOW IVP Q2H PRN PRN Reason: Pain Last Admin: 02/22/17 09:54 Dose: 4 mg Naloxone HCl (Narcan) 0.2 mg IV Q5MIN PRN PRN Reason: RR <=8 OR OBTUNDED/UNAROUSABLE Naloxone HCl (Narcan) 0.1 mg IVP Q15MIN PRN PRN Reason: URINARY RETENTION Nitroglycerin (Nitro-Bid 2% Ointment) 1 inch TOP Q8HR [facility] Last Admin: 02/22/17 07:10 Dose: Not Given Ondansetron HCl (Zofran) 4 mg IVP Q6H PRN PRN Reason: Nausea/Vomiting Oxycodone/Acetaminophen (Percocet 5/325) 1 tab PO Q4H PRN PRN Reason: Pain 1ST LINE Last Admin: 02/21/17 17:17 Dose: 1 tab Oxycodone/Acetaminophen (Percocet 5/325) 2 tab PO Q4H PRN PRN Reason: Pain 2ND LINE Pramipexole Dihydrochloride (Mirapex) 2 mg PO 1500 [facility] Last Admin: 02/21/17 14:23 Dose: 2 mg Pramipexole Dihydrochloride (Mirapex) 2 mg PO HS [facility] Last Admin: 02/21/17 20:35 Dose: 2 mg Promethazine HCl (Phenergan) 12.5 mg IM Q4H PRN PRN Reason: Nausea/Vomiting Promethazine HCl (Phenergan Suppository) 25 mg [place] Q4H PRN PRN Reason: Nausea/Vomiting Senna/Docusate Sodium (Senokot S) 2 tab PO BID [facility] Last Admin: 02/22/17 07:17 Dose: 2 tab Sodium Chloride (Flush - Normal Saline) 10 ml IVF PRN PRN PRN Reason: Saline Flush Tramadol HCl (Ultram) 50 mg PO Q6H PRN PRN Reason: Mild Pain 1-3 Last Admin: 02/21/17 14:25 Dose: 50 mg Tramadol HCl (Ultram) 100 mg PO Q6H PRN PRN Reason: Moderate Pain 4-6 Last Admin: 02/22/17 13:37 Dose: 100 mg Zolpidem Tartrate (Ambien) 5 mg PO HSPRN PRN PRN Reason: Insomnia Last Admin: 02/21/17 20:35 Dose: 5 mg
[2017-02-22] MEDS: Pramipexole Di-HCl 1 MG TAB PO SCH ×2 (15:49→21:05)
[2017-02-22] MEDS: Zolpidem Tartrate 5 MG TAB PO PRN (21:08)
[2017-02-22] MEDS: Atorvastatin Calcium 10 MG TAB PO SCH (21:08)
[2017-02-22] MEDS: oxyCODONE/Acetaminophen 5 mg/325 mg Tablet PO PRN (21:16)
[2017-02-23] MEDS: Sodium Chloride 0.9% 1,000 ML IV SCH ×4 (04:18→15:35)
[2017-02-23] MEDS: Morphine 4 MG/ML VIAL SLOW IVP PRN (04:28)
[2017-02-23] MEDS: Nitroglycerin 2% Ointment 1 INCH/1 GM Packet TOP SCH ×3 (05:02→21:26)
[2017-02-23] MEDS: traMADol HCl 50 MG TAB PO PRN (05:05)
[2017-02-23 05:38] LABS: Hemoglobin 8.2 g/dL (12.0-16.0); Mean Corpuscular HGB CONC 30.8 g/dL (32.0-36.0); Mean Corpuscular Hemoglobin 30.1 pg (27.0-31.0); Mean Corpuscular Volume 97.8 fl (81.0-99.0); Mean Platelet Volume 7.3 fL (7.4-10.4); Platelet Count 261 thou/uL (130-400); RBC Distribution Width 13.7 % (11.5-14.5); Red Blood Cell (RBC) Count 2.73 mill/uL (4.20-5.40); White Blood Cell (WBC) Count 8.4 thou/uL (4.8-10.8)
[2017-02-23] MEDS: Carbidopa/Levodopa 25-100 mg Tablet PO SCH ×5 (06:53→21:23)
[2017-02-23] MEDS: Fludrocortisone Acetate 0.1 MG TAB PO SCH (09:12)
[2017-02-23] MEDS: Acetaminophen 325 MG TAB PO PRN ×2 (09:12→18:51)
[2017-02-23] MEDS: Ferrous Gluconate 324 MG TAB PO SCH ×2 (09:12→18:51)
[2017-02-23] MEDS: Aspirin 325 MG TAB PO SCH ×2 (09:12→21:22)
[2017-02-23] MEDS: Multivitamin W/ Minerals 1 TAB PO SCH (09:12)
[2017-02-23] MEDS: Metoprolol Tartrate 25 MG TAB PO SCH ×2 (09:13→21:22)
[2017-02-23] MEDS: Senokot S 8.6-50 MG TAB PO SCH ×3 (09:13→21:24)
[2017-02-23] MEDS: Bisacodyl 10 MG SUPP PR PRN (12:11)
--- NOTE | 2017-02-23 13:30 | PDOC.PN ---
- Subjective Encounter Start Date: 02/23/17 Encounter Start Time: 08:20 Pt seen for followup re; DM2. Resting comfortable, not speaking. Unable to obtain ROS. - Objective Resuscitation Status: Resuscitation Status FULL:Full Resuscitation MAR Reviewed: Yes Vital Signs & Weight: Vital Signs (12 hours) Temp Pulse Resp BP BP Pulse Ox 02/23/17 11:24 97.8 F 75 14 94/49 L 96 02/23/17 08:00 97.3 F L 75 12 97 02/23/17 07:26 97.3 F L 75 12 128/57 L 99 02/23/17 03:44 97.9 F 68 14 108/50 L 96 Weight Admit Weight 106 lb Weight 106 lb Most Recent Monitor Data Heart Rate from ECG 99 NIBP 157/73 NIBP BP-Mean 98 Respiration from ECG 11 SpO2 98 I&O: 02/22/17 02/23/17 02/24/17 06:59 06:59 06:59 Intake Total 1192 2509 Output Total 570 900 Balance 622 1609 Result Diagrams: 02/23/17 04:59 02/18/17 13:09 Additional Labs: Accuchecks 02/23/17 02/22/17 05:22 16:04 POC Glucose 135 H 112 H Phys Exam - Physical Examination Constitutional: NAD HEENT: moist MMs Neck: supple Respiratory: clear to auscultation bilateral Cardiovascular: RRR Gastrointestinal: soft Neurological: moves all 4 limbs Dx/Plan (1) Diabetes mellitus type 2 in nonobese Code(s): E11.9 - TYPE 2 DIABETES MELLITUS WITHOUT COMPLICATIONS Status: Chronic Comment: iss (2) CAD (coronary artery disease) Code(s): I25.10 - ATHSCL HEART DISEASE OF [place] CORONARY ARTERY W/O ANG PCTRS Status: Chronic (3) Parkinsons disease Code(s): G20 - PARKINSON'S DISEASE Status: Chronic (4) Protein-calorie malnutrition, mild Code(s): E44.1 - MILD PROTEIN-CALORIE MALNUTRITION Status: Chronic (5) Chest pain Code(s): R07.9 - CHEST PAIN, UNSPECIFIED Status: Resolved - Plan plan discussed w/ family, PT/OT, out of bed/ambulate * . Blood sugars reasonably controlled. Pain controlled as well. CAD stable. Review of Systems - Medications/Allergies Allergies/Adverse Reactions: Allergies Allergy/AdvReac Type Severity Reaction Status Date / Time benzonatate Allergy Verified 01/06/17 15:11 [From Marge Dueñas] iodine Allergy Verified 01/06/17 15:11 Penicillins Allergy Verified 01/06/17 15:11 red dye Allergy Verified 01/06/17 15:11 adhesives Allergy Uncoded 01/06/17 15:39 Medications: Current Medications Acetaminophen (Tylenol) 650 mg PO Q4H PRN PRN Reason: DAMIAN/ T > 101F; Mild Pain (1-3) Last Admin: 02/23/17 09:12 Dose: 650 mg Aspirin (Aspirin) 325 mg PO BID [facility] Last Admin: 02/23/17 09:12 Dose: 325 mg Atorvastatin Calcium (Lipitor) 10 mg PO HS [facility] Last Admin: 02/22/17 21:08 Dose: 10 mg Bisacodyl (Dulcolax) 10 mg [place] DAILYPRN PRN PRN Reason: Constipation Last Admin: 02/23/17 12:11 Dose: 10 mg Carbidopa/Levodopa (Sinemet 25-100) 2 tab PO 0600,1100,1500,1800 [facility] Last Admin: 02/23/17 12:11 Dose: 2 tab Carbidopa/Levodopa (Sinemet 25-100) 2 tab PO 2100 [facility] Last Admin: 02/22/17 21:06 Dose: 2 tab Dextrose/Water (Dextrose 50%) 25 gm SLOW IVP PRN PRN PRN Reason: Hypoglycemia Diphenhydramine HCl (Benadryl) 25 mg PO Q3H PRN PRN Reason: Itching Diphenhydramine HCl (Benadryl) 25 mg IM Q3H PRN PRN Reason: Itching Diphenhydramine HCl (Benadryl) 25 mg IVP Q3H PRN PRN Reason: Itching Fentanyl (Sublimaze) 50 mcg SLOW IVP Q1H PRN PRN Reason: Pain Last Admin: 02/21/17 15:20 Dose: 50 mcg Fentanyl (Duragesic) 50 mcg TD Q3D@1400 [facility] Last Admin: 02/21/17 13:42 Dose: 50 mcg Ferrous Gluconate (Fergon) 324 mg PO BID[facility] Last Admin: 02/23/17 09:12 Dose: 324 mg Fludrocortisone Acetate (Florinef) 0.1 mg PO QAM [facility] Last Admin: 02/23/17 09:12 Dose: 0.1 mg Glucagon (Glucagon) 1 mg IM PRN PRN PRN Reason: Hypoglycemia Dextrose/Water (D5w) 1,000 mls @ 0 mls/hr IV .Q0M PRN; As Directed PRN Reason: Hypoglycemia Sodium Chloride (Normal Saline 0.9%) 1,000 mls @ 100 mls/hr IV .Q10H [facility] Last Admin: 02/23/17 11:14 Dose: Not Given Insulin Human Lispro (Humalog) 0 units SC .MILD SLIDING SCALE PRN PRN Reason: Mild Correctional Scale Insulin Human Lispro (Humalog) 0 units SC .BEDTIME SLIDING SC PRN PRN Reason: Bedtime Correctional Scale Iron/Minerals/Multivitamins (Theragran M) 1 tab PO DAILY [facility] Last Admin: 02/23/17 09:12 Dose: 1 tab Lorazepam (Ativan) 0.5 mg SLOW IVP HSPRN PRN PRN Reason: . Last Admin: 02/21/17 23:24 Dose: 0.5 mg Metoprolol Tartrate (Lopressor) 12.5 mg PO BID [facility] Last Admin: 02/23/17 09:13 Dose: 12.5 mg Mineral Oil/White Petrolatum (Eucerin Cream) 0 gm TOP PRN PRN PRN Reason: Itching Miscellaneous Medication (Pharmacy To Dose) 1 each PO ONE [facility] Stop: 02/28/17 12:46 Morphine Sulfate (Morphine) 4 mg SLOW IVP Q2H PRN PRN Reason: Pain Last Admin: 02/23/17 04:28 Dose: 4 mg Naloxone HCl (Narcan) 0.2 mg IV Q5MIN PRN PRN Reason: RR <=8 OR OBTUNDED/UNAROUSABLE Naloxone HCl (Narcan) 0.1 mg IVP Q15MIN PRN PRN Reason: URINARY RETENTION Nitroglycerin (Nitro-Bid 2% Ointment) 1 inch TOP Q8HR [facility] Last Admin: 02/23/17 05:02 Dose: Not Given Ondansetron HCl (Zofran) 4 mg IVP Q6H PRN PRN Reason: Nausea/Vomiting Oxycodone/Acetaminophen (Percocet 5/325) 1 tab PO Q4H PRN PRN Reason: Pain 1ST LINE Last Admin: 02/22/17 21:16 Dose: 1 tab Oxycodone/Acetaminophen (Percocet 5/325) 2 tab PO Q4H PRN PRN Reason: Pain 2ND LINE Pramipexole Dihydrochloride (Mirapex) 2 mg PO 1500 [facility] Last Admin: 02/22/17 15:49 Dose: 2 mg Pramipexole Dihydrochloride (Mirapex) 2 mg PO HS [facility] Last Admin: 02/22/17 21:05 Dose: 2 mg Promethazine HCl (Phenergan) 12.5 mg IM Q4H PRN PRN Reason: Nausea/Vomiting Promethazine HCl (Phenergan Suppository) 25 mg [place] Q4H PRN PRN Reason: Nausea/Vomiting Senna/Docusate Sodium (Senokot S) 2 tab PO BID [facility] Last Admin: 02/23/17 09:13 Dose: 2 tab Sodium Chloride (Flush - Normal Saline) 10 ml IVF PRN PRN PRN Reason: Saline Flush Tramadol HCl (Ultram) 50 mg PO Q6H PRN PRN Reason: Mild Pain 1-3 Last Admin: 02/21/17 14:25 Dose: 50 mg Tramadol HCl (Ultram) 100 mg PO Q6H PRN PRN Reason: Moderate Pain 4-6 Last Admin: 02/23/17 05:05 Dose: 100 mg Zolpidem Tartrate (Ambien) 5 mg PO HSPRN PRN PRN Reason: Insomnia Last Admin: 02/22/17 21:08 Dose: 5 mg
[2017-02-23] MEDS: Pramipexole Di-HCl 1 MG TAB PO SCH ×2 (14:38→21:22)
[2017-02-23] MEDS: Sodium Chloride 0.9% 100 ML IV SCH ×2 (15:32→15:33)
[2017-02-23] MEDS: Aspirin 325 mg Enteric Coated Tablet PO SCH (15:34)
--- NOTE | 2017-02-23 18:47 | PDOC.CTH ---
<Jessenia Webber - Last Filed: 02/23/17 18:47> Cardiology Progress Note - Subjective The pt seen and examined. She seems having pain in her Rt hip or ABD; however, she does not speak or follow commands at this moment. Unable to obtain ROS. - Objective Vital Signs Temp Pulse Resp BP Pulse Ox 02/23/17 15:22 98.7 F 79 14 192/74 H 97 02/23/17 11:24 97.8 F 75 14 94/49 L 96 02/23/17 08:00 97.3 F L 75 12 97 02/23/17 07:26 97.3 F L 75 12 128/57 L 99 Admit Weight 106 lb Weight 106 lb 02/22/17 02/23/17 02/24/17 06:59 06:59 06:59 Intake Total 1192 2509 1200 Output Total 570 900 300 Balance 622 1609 900 - Physical Examination Neck: no JVD present Lungs: other: (diminshed at bases) Heart: RRR Abdomen: soft Extremities: other: (2+ pitting edema in Bilat ankles) - Labs Result Diagrams: 02/23/17 04:59 02/18/17 13:09 Troponin/CKMB CK-MB (CK-2) 6.7 ng/mL (0-6.6) H* 02/20/17 19:53 Troponin I 0.065 ng/mL (< 0.028) H 02/22/17 12:28 - Assessment/Plan 1. 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 3V CAD - cont. medical treatment 3. DM type 2 - Stable; managed by PCP 4. Parkinsons disease - stable; managed by PCP 5. Edema in BLE - Lasix 20mg IV x1 for 2+ pitting edema in BLE and decreased urine output (total 300ml at day shift); Echo result is pending at this moment MAR reviewed Review of Systems - Review of Systems Constitutional: reports: see HPI EENTM: reports: see HPI Respiratory: reports: see HPI Cardiac (ROS): reports: see HPI ABD/GI: reports: see HPI : reports: see HPI Musculoskeletal: reports: see HPI Skin: reports: see HPI <Tello Pop - Last Filed: 02/23/17 22:33> Cardiology Progress Note - Objective Vital Signs Temp Pulse Resp BP Pulse Ox 02/23/17 20:00 100.3 F H 83 18 165/63 H 90 L 02/23/17 15:22 98.7 F 79 14 192/74 H 97 02/23/17 11:24 97.8 F 75 14 94/49 L 96 Admit Weight 106 lb Weight 106 lb 02/22/17 02/23/17 02/24/17 06:59 06:59 06:59 Intake Total 1192 2509 1200 Output Total 570 900 300 Balance 622 1609 900 - Labs Result Diagrams: 02/23/17 04:59 02/18/17 13:09 Troponin/CKMB CK-MB (CK-2) 6.7 ng/mL (0-6.6) H* 02/20/17 19:53 Troponin I 0.065 ng/mL (< 0.028) H 02/22/17 12:28 - Assessment/Plan Pt. seen and eval. by me.I agree with the A/P by the BACKFILLER. Echo indicates EF: 50- 55%.Trace MR,TR.
[2017-02-23] MEDS ORDERED: Furosemide 20 MG/2 ML VIAL SLOW IVP SCH (21:00)
[2017-02-23] MEDS: Atorvastatin Calcium 10 MG TAB PO SCH (21:23)
[2017-02-23] MEDS: Lorazepam 2 MG/ML VIAL SLOW IVP PRN (23:30)
[2017-02-24] MEDS: Sodium Chloride 0.9% 1,000 ML IV SCH ×2 (02:00→15:22)
[2017-02-24] MEDS: Carbidopa/Levodopa 25-100 mg Tablet PO SCH ×5 (05:54→23:09)
[2017-02-24] MEDS: Morphine 4 MG/ML VIAL SLOW IVP PRN (05:57)
[2017-02-24] MEDS: Nitroglycerin 2% Ointment 1 INCH/1 GM Packet TOP SCH ×4 (05:57→21:52)
--- NOTE | 2017-02-24 07:30 | EKG ---
Test Reason : CHEST PAIN Blood Pressure : / mmHG Vent. Rate : 094 BPM Atrial Rate : 094 BPM P-R Int : 116 ms QRS Dur : 078 ms QT Int : 364 ms P-R-T Axes : 085 073 064 degrees QTc Int : 455 ms Normal sinus rhythm Nonspecific ST abnormality Abnormal ECG When compared with ECG of 14-FEB-2017 20:10, (Unconfirmed) Premature ventricular complexes are no longer Present Confirmed by DR. Suman AMARO (3) on 02/24/2017 7:30:05 AM Referred By: ADAN Confirmed By:DR. Suman AMARO
[2017-02-24] MEDS: Acetaminophen 325 MG TAB PO PRN ×3 (07:47→16:29)
[2017-02-24 09:36] LABS: Hemoglobin 8.8 g/dL (12.0-16.0); Mean Corpuscular HGB CONC 32.3 g/dL (32.0-36.0); Mean Platelet Volume 7.7 fL (7.4-10.4); Platelet Count 289 thou/uL (130-400); RBC Distribution Width 13.6 % (11.5-14.5); Red Blood Cell (RBC) Count 2.85 mill/uL (4.20-5.40); White Blood Cell (WBC) Count 7.7 thou/uL (4.8-10.8)
[2017-02-24 10:01] LABS: Anion Gap 17 mmol/L (10-20); BUN (Urea Nitrogen) 23 mg/dL (9.8-20.1); Calc. Creatinine Clearance 57 mL/min (70-130); Calcium 9.3 mg/dL (7.8-10.44); Carbon Dioxide 22 mmol/L (23-31); Chloride 113 mmol/L (98-107); Estimated GFR-MDRD 90; Glucose 159 mg/dL (83-110); Potassium 3.5 mmol/L (3.5-5.1); Sodium 148 mmol/L (136-145)
[2017-02-24] MEDS: Fludrocortisone Acetate 0.1 MG TAB PO SCH (10:36)
[2017-02-24] MEDS: Senokot S 8.6-50 MG TAB PO SCH ×2 (10:36→21:43)
[2017-02-24] MEDS: Ferrous Gluconate 324 MG TAB PO SCH ×2 (10:37→16:29)
[2017-02-24] MEDS: Metoprolol Tartrate 25 MG TAB PO SCH ×2 (10:37→21:43)
[2017-02-24] MEDS: Aspirin 325 MG TAB PO SCH ×2 (10:37→21:42)
[2017-02-24] MEDS: Multivitamin W/ Minerals 1 TAB PO SCH (10:38)
[2017-02-24] MEDS: traMADol HCl 50 MG TAB PO PRN (12:16)
[2017-02-24] MEDS ORDERED: traMADol HCl 50 MG TAB PO SCH (13:15)
--- NOTE | 2017-02-24 15:09 | PDOC.PN ---
- Subjective Encounter Start Date: 02/24/17 Encounter Start Time: 08:00 Pt seen for followup re: DM2. Not answering questions, unable to complete ROS. - Objective Resuscitation Status: Resuscitation Status FULL:Full Resuscitation MAR Reviewed: Yes Vital Signs & Weight: Vital Signs (12 hours) Temp Pulse Resp BP Pulse Ox 02/24/17 11:25 98.1 F 86 10 L 181/109 H 98 02/24/17 07:45 99.3 F 74 8 L 189/77 H 99 02/24/17 04:00 97.6 F 63 118 H 140/77 95 Weight Admit Weight 106 lb Weight 106 lb Most Recent Monitor Data Heart Rate from ECG 99 NIBP 157/73 NIBP BP-Mean 98 Respiration from ECG 11 SpO2 98 I&O: 02/23/17 02/24/17 02/25/17 06:59 06:59 06:59 Intake Total 2509 2450 Output Total 900 1900 Balance 1609 550 Result Diagrams: 02/24/17 09:14 02/24/17 09:14 Additional Labs: Accuchecks 02/24/17 02/24/17 02/23/17 11:06 01:34 18:35 POC Glucose 173 H 173 H 169 H Phys Exam - Physical Examination Keeping eyes tightly shut Respiratory: clear to auscultation bilateral Cardiovascular: RRR Gastrointestinal: soft Musculoskeletal: edema present Neurological: moves all 4 limbs Dx/Plan (1) Diabetes mellitus type 2 in nonobese Code(s): E11.9 - TYPE 2 DIABETES MELLITUS WITHOUT COMPLICATIONS Status: Chronic Comment: iss (2) CAD (coronary artery disease) Code(s): I25.10 - ATHSCL HEART DISEASE OF [place] CORONARY ARTERY W/O ANG PCTRS Status: Chronic (3) Parkinsons disease Code(s): G20 - PARKINSON'S DISEASE Status: Chronic (4) Protein-calorie malnutrition, mild Code(s): E44.1 - MILD PROTEIN-CALORIE MALNUTRITION Status: Chronic (5) Chest pain Code(s): R07.9 - CHEST PAIN, UNSPECIFIED Status: Resolved - Plan plan discussed w/ family * . Family reports that she is mainly in pain when being moved. Blood sugars creeping up slowly, may need change to insulin doses if this continues tomorrow. Review of Systems - Medications/Allergies Allergies/Adverse Reactions: Allergies Allergy/AdvReac Type Severity Reaction Status Date / Time benzonatate Allergy Verified 01/06/17 15:11 [From Marge Dueñas] iodine Allergy Verified 01/06/17 15:11 Penicillins Allergy Verified 01/06/17 15:11 red dye Allergy Verified 01/06/17 15:11 adhesives Allergy Uncoded 01/06/17 15:39 Medications: Current Medications Acetaminophen (Tylenol) 650 mg PO Q4H PRN PRN Reason: DAMIAN/ T > 101F; Mild Pain (1-3) Last Admin: 02/24/17 12:17 Dose: 650 mg Aspirin (Aspirin) 325 mg PO BID [facility] Last Admin: 02/24/17 10:37 Dose: 325 mg Atorvastatin Calcium (Lipitor) 10 mg PO HS [facility] Last Admin: 02/23/17 21:23 Dose: 10 mg Bisacodyl (Dulcolax) 10 mg [place] DAILYPRN PRN PRN Reason: Constipation Last Admin: 02/23/17 12:11 Dose: 10 mg Carbidopa/Levodopa (Sinemet 25-100) 2 tab PO 0600,1100,1500,1800 [facility] Last Admin: 02/24/17 10:42 Dose: 2 tab Carbidopa/Levodopa (Sinemet 25-100) 2 tab PO 2100 [facility] Last Admin: 02/23/17 21:23 Dose: 2 tab Dextrose/Water (Dextrose 50%) 25 gm SLOW IVP PRN PRN PRN Reason: Hypoglycemia Diphenhydramine HCl (Benadryl) 25 mg PO Q3H PRN PRN Reason: Itching Diphenhydramine HCl (Benadryl) 25 mg IM Q3H PRN PRN Reason: Itching Diphenhydramine HCl (Benadryl) 25 mg IVP Q3H PRN PRN Reason: Itching Fentanyl (Sublimaze) 50 mcg SLOW IVP Q1H PRN PRN Reason: Pain Last Admin: 02/21/17 15:20 Dose: 50 mcg Fentanyl (Duragesic) 50 mcg TD Q3D@1400 [facility] Last Admin: 02/21/17 13:42 Dose: 50 mcg Ferrous Gluconate (Fergon) 324 mg PO BID[facility] Last Admin: 02/24/17 10:37 Dose: 324 mg Fludrocortisone Acetate (Florinef) 0.1 mg PO QAM [facility] Last Admin: 02/24/17 10:36 Dose: 0.1 mg Glucagon (Glucagon) 1 mg IM PRN PRN PRN Reason: Hypoglycemia Dextrose/Water (D5w) 1,000 mls @ 0 mls/hr IV .Q0M PRN; As Directed PRN Reason: Hypoglycemia Sodium Chloride (Normal Saline 0.9%) 1,000 mls @ 100 mls/hr IV .Q10H [facility] Last Admin: 02/24/17 02:00 Dose: 1,000 mls Insulin Human Lispro (Humalog) 0 units SC .MILD SLIDING SCALE PRN PRN Reason: Mild Correctional Scale Insulin Human Lispro (Humalog) 0 units SC .BEDTIME SLIDING SC PRN PRN Reason: Bedtime Correctional Scale Iron/Minerals/Multivitamins (Theragran M) 1 tab PO DAILY [facility] Last Admin: 02/24/17 10:38 Dose: 1 tab Lorazepam (Ativan) 0.5 mg SLOW IVP HSPRN PRN PRN Reason: . Last Admin: 02/23/17 23:30 Dose: 0.5 mg Metoprolol Tartrate (Lopressor) 12.5 mg PO BID [facility] Last Admin: 02/24/17 10:37 Dose: 12.5 mg Mineral Oil/White Petrolatum (Eucerin Cream) 0 gm TOP PRN PRN PRN Reason: Itching Miscellaneous Medication (Pharmacy To Dose) 1 each PO ONE [facility] Stop: 02/28/17 12:46 Morphine Sulfate (Morphine) 4 mg SLOW IVP Q2H PRN PRN Reason: Pain Last Admin: 02/24/17 05:57 Dose: 4 mg Naloxone HCl (Narcan) 0.2 mg IV Q5MIN PRN PRN Reason: RR <=8 OR OBTUNDED/UNAROUSABLE Naloxone HCl (Narcan) 0.1 mg IVP Q15MIN PRN PRN Reason: URINARY RETENTION Nitroglycerin (Nitro-Bid 2% Ointment) 1 inch TOP Q8HR [facility] Last Admin: 02/24/17 05:57 Dose: 1 inch Ondansetron HCl (Zofran) 4 mg IVP Q6H PRN PRN Reason: Nausea/Vomiting Oxycodone/Acetaminophen (Percocet 5/325) 1 tab PO Q4H PRN PRN Reason: Pain 1ST LINE Last Admin: 02/22/17 21:16 Dose: 1 tab Oxycodone/Acetaminophen (Percocet 5/325) 2 tab PO Q4H PRN PRN Reason: Pain 2ND LINE Pramipexole Dihydrochloride (Mirapex) 2 mg PO 1500 [facility] Last Admin: 02/23/17 14:38 Dose: 2 mg Pramipexole Dihydrochloride (Mirapex) 2 mg PO HS [facility] Last Admin: 02/23/17 21:22 Dose: 2 mg Promethazine HCl (Phenergan) 12.5 mg IM Q4H PRN PRN Reason: Nausea/Vomiting Promethazine HCl (Phenergan Suppository) 25 mg [place] Q4H PRN PRN Reason: Nausea/Vomiting Senna/Docusate Sodium (Senokot S) 2 tab PO BID [facility] Last Admin: 02/24/17 10:36 Dose: 2 tab Sodium Chloride (Flush - Normal Saline) 10 ml IVF PRN PRN PRN Reason: Saline Flush Tramadol HCl (Ultram) 50 mg PO NOW [facility] Stop: 02/24/17 15:15 Zolpidem Tartrate (Ambien) 5 mg PO HSPRN PRN PRN Reason: Insomnia Last Admin: 02/22/17 21:08 Dose: 5 mg
[2017-02-24] MEDS: Pramipexole Di-HCl 1 MG TAB PO SCH ×2 (15:11→21:43)
[2017-02-24] MEDS: fentaNYL 50 mcg/hour Patch TD SCH (15:47)
[2017-02-24] MEDS ORDERED: hydrALAZINE 20 MG/ML VIAL SLOW IVP PRN (16:13)
[2017-02-24] MEDS: traMADol HCl 50 MG TAB PO SCH ×2 (16:30→20:30)
[2017-02-24] MEDS: Bisacodyl 10 MG SUPP PR PRN (18:24)
[2017-02-24] MEDS: Atorvastatin Calcium 10 MG TAB PO SCH (21:42)
[2017-02-24] MEDS: Acetaminophen 650 MG in Premix Bag 1 BAG IVPB PRN (21:51)
[2017-02-25] MEDS: Sodium Chloride 0.9% 1,000 ML IV SCH ×3 (02:30→21:18)
[2017-02-25] MEDS: Acetaminophen 650 MG in Premix Bag 1 BAG IVPB PRN ×3 (05:05→20:57)
[2017-02-25] MEDS: Nitroglycerin 2% Ointment 1 INCH/1 GM Packet TOP SCH ×3 (05:28→21:14)
[2017-02-25] MEDS: Carbidopa/Levodopa 25-100 mg Tablet PO SCH ×5 (05:28→20:47)
[2017-02-25] MEDS: Fentanyl 100 MCG/2 ML VIAL SLOW IVP PRN ×2 (05:47→18:25)
[2017-02-25 06:37] LABS: Hemoglobin 9.4 g/dL (12.0-16.0); Mean Corpuscular Hemoglobin 30.9 pg (27.0-31.0); Mean Corpuscular Volume 96.5 fl (81.0-99.0); Mean Platelet Volume 7.3 fL (7.4-10.4); Platelet Count 299 thou/uL (130-400); RBC Distribution Width 13.5 % (11.5-14.5); Red Blood Cell (RBC) Count 3.04 mill/uL (4.20-5.40); White Blood Cell (WBC) Count 7.7 thou/uL (4.8-10.8)
[2017-02-25] MEDS: Aspirin 325 MG TAB PO SCH ×2 (09:00→21:14)
[2017-02-25] MEDS: Fludrocortisone Acetate 0.1 MG TAB PO SCH (09:00)
--- NOTE | 2017-02-25 09:24 | PDOC.PN ---
- Subjective Encounter Start Date: 02/25/17 Encounter Start Time: 09:22 -: non-verbal Subjective: family at bedside, they report that patient becomes unresponsive in -: hospital, but is verbal at home. - Objective Resuscitation Status: Resuscitation Status FULL:Full Resuscitation MAR Reviewed: Yes Vital Signs & Weight: Vital Signs (12 hours) Temp Pulse Resp BP BP Pulse Ox 02/25/17 08:05 98.1 F 155 H 20 165/109 H 99 02/25/17 05:40 90 155/100 H 02/25/17 03:46 99.0 F 90 14 189/82 H 96 02/25/17 01:28 99.4 F 75 14 90/51 L 91 L 02/24/17 21:55 99/59 L 02/24/17 21:39 98.7 F 82 14 159/92 H 95 Weight Admit Weight 106 lb Weight 106 lb Most Recent Monitor Data Heart Rate from ECG 99 NIBP 157/73 NIBP BP-Mean 98 Respiration from ECG 11 SpO2 98 I&O: 02/24/17 02/25/17 02/26/17 06:59 06:59 06:59 Intake Total 2450 1200 Output Total 1900 1450 Balance 550 -250 Result Diagrams: 02/25/17 06:16 02/24/17 09:14 Additional Labs: Accuchecks 02/25/17 02/24/17 02/24/17 05:32 20:34 15:59 POC Glucose 141 H 143 H 153 H 02/24/17 11:06 POC Glucose 173 H Phys Exam - Physical Examination Constitutional: NAD non responsive HEENT: PERRLA Neck: supple Respiratory: clear to auscultation bilateral Cardiovascular: irregular Gastrointestinal: soft Musculoskeletal: edema present immobile Deviation from normal: unresponsive Dx/Plan (1) Diastolic congestive heart failure Code(s): I50.30 - UNSPECIFIED DIASTOLIC (CONGESTIVE) HEART FAILURE Status: Chronic Qualifiers: Congestive heart failure chronicity: chronic Qualified Code(s): I50.32 - Chronic diastolic (congestive) heart failure (2) Hip dislocation, right Code(s): S73.004A - UNSPECIFIED DISLOCATION OF RIGHT HIP, INITIAL ENCOUNTER Status: Resolved Comment: Reduced yesterday. Ortho managing. (3) Demand ischemia of myocardium Code(s): I24.8 - OTHER FORMS OF ACUTE ISCHEMIC HEART DISEASE Status: Acute (4) Diabetes mellitus type 2 in nonobese Code(s): E11.9 - TYPE 2 DIABETES MELLITUS WITHOUT COMPLICATIONS Status: Chronic Comment: iss (5) Parkinsons disease Code(s): G20 - PARKINSON'S DISEASE Status: Chronic (6) Protein-calorie malnutrition, mild Code(s): E44.1 - MILD PROTEIN-CALORIE MALNUTRITION Status: Chronic (7) Altered mental state Code(s): R41.82 - ALTERED MENTAL STATUS, UNSPECIFIED Status: Resolved Comment: better f/u mri brain - Plan cont current plan of care, plan discussed w/ family family reports on florinef for hypotension. cards managing bp and afib. -: dispostion per surgery service. * .
[2017-02-25] MEDS ORDERED: Metoprolol Tartrate 5 MG/5 ML VIAL IVP SCH (09:30)
[2017-02-25] MEDS: Ferrous Gluconate 324 MG TAB PO SCH ×2 (10:19→18:19)
[2017-02-25] MEDS: Senokot S 8.6-50 MG TAB PO SCH ×2 (10:20→21:14)
[2017-02-25] MEDS: Metoprolol Tartrate 25 MG TAB PO SCH (10:20)
[2017-02-25] MEDS: Multivitamin W/ Minerals 1 TAB PO SCH (10:20)
--- NOTE | 2017-02-25 11:08 | PRG ---
DATE OF SERVICE: 02/25/2017 SUBJECTIVE: The patient is doing well. Family is at the bedside. She is currently working with spe ech therapy and working on diet. The patient did have an irregular run of arrhythmia, says she is go ing back down to tele for further monitoring. Her pain is okay per family. She is sitting up in bed and has no other complaints. OBJECTIVE: VITAL SIGNS: Stable with blood pressure currently 155/100, but she is afebrile. GENERAL: Speech is clear, answering simple questions okay. HEENT: Normal. Face is symmetric. EXTREMITIES: Moving upper extremities well. She is even moving the right lower extremity fairly wel l. LABORATORY DATA: Her H and H is 9.4 and 29.3. ASSESSMENT: Orthopedically, stable. PLAN: Continue with current treatment, OT, PT, and speech. I will continue to follow her on a daily basis and again she is getting transferred down to telemetry for further cardiac monitoring.
[2017-02-25 13:25] LABS: Anion Gap 21 mmol/L (10-20); BUN (Urea Nitrogen) 12 mg/dL (9.8-20.1); Calc. Creatinine Clearance 61 mL/min (70-130); Carbon Dioxide 23 mmol/L (23-31); Chloride 107 mmol/L (98-107); Estimated GFR-MDRD Greater than 90; Glucose 158 mg/dL (83-110); Sodium 148 mmol/L (136-145)
[2017-02-25 13:27] LABS: CKMB 1.4 ng/mL (0-6.6); Troponin I 0.092 ng/mL (< 0.028)
[2017-02-25 13:29] LABS: Potassium 2.9 mmol/L (3.5-5.1)
[2017-02-25] MEDS ORDERED: Diltiazem 125 MG in Sodium Chloride 0.9% 100 ML IVPB SCH (14:30)
[2017-02-25] MEDS ORDERED: Potassium Chloride 40 MEQ in Sodium Chloride 0.9% 500 ML IVPB SCH (14:45)
[2017-02-25] MEDS: Pramipexole Di-HCl 1 MG TAB PO SCH ×2 (15:08→20:55)
[2017-02-25] MEDS: Morphine 4 MG/ML VIAL SLOW IVP PRN (16:36)
[2017-02-25] MEDS: Metoprolol Tartrate 5 MG/5 ML VIAL IVP SCH (17:59)
[2017-02-25 19:41] LABS: CKMB 1.6 ng/mL (0-6.6); Troponin I 0.085 ng/mL (< 0.028)
[2017-02-25] MEDS: Atorvastatin Calcium 10 MG TAB PO SCH (20:57)
[2017-02-26] MEDS: Metoprolol Tartrate 5 MG/5 ML VIAL IVP SCH ×4 (02:01→17:24)
[2017-02-26] MEDS: Acetaminophen 650 MG Suppository PR PRN ×4 (02:47→18:01)
[2017-02-26] MEDS: Lorazepam 2 MG/ML VIAL SLOW IVP PRN (02:58)
[2017-02-26 05:42] LABS: Hemoglobin 7.8 g/dL (12.0-16.0); Mean Corpuscular HGB CONC 31.4 g/dL (32.0-36.0); Mean Corpuscular Hemoglobin 30.4 pg (27.0-31.0); Mean Corpuscular Volume 96.8 fl (81.0-99.0); Mean Platelet Volume 7.2 fL (7.4-10.4); Platelet Count 260 thou/uL (130-400); RBC Distribution Width 13.5 % (11.5-14.5); Red Blood Cell (RBC) Count 2.57 mill/uL (4.20-5.40); White Blood Cell (WBC) Count 6.7 thou/uL (4.8-10.8)
[2017-02-26] MEDS: Nitroglycerin 2% Ointment 1 INCH/1 GM Packet TOP SCH ×3 (06:22→22:40)
[2017-02-26] MEDS: Carbidopa/Levodopa 25-100 mg Tablet PO SCH ×5 (06:27→20:48)
[2017-02-26] MEDS: Sodium Chloride 0.9% 1,000 ML IV SCH ×2 (07:14→10:57)
[2017-02-26] MEDS ORDERED: Acetaminophen 650 MG Suppository PR SCH (07:45)
[2017-02-26] MEDS: Aspirin 325 MG TAB PO SCH ×2 (08:03→22:38)
[2017-02-26] MEDS: Ferrous Gluconate 324 MG TAB PO SCH ×2 (08:03→17:13)
[2017-02-26] MEDS: Fludrocortisone Acetate 0.1 MG TAB PO SCH (08:04)
[2017-02-26] MEDS: Senokot S 8.6-50 MG TAB PO SCH ×2 (08:04→20:48)
[2017-02-26] MEDS: Multivitamin W/ Minerals 1 TAB PO SCH (08:04)
[2017-02-26] MEDS ORDERED: Furosemide 20 MG/2 ML VIAL SLOW IVP SCH (10:15)
[2017-02-26 10:16] LABS: Magnesium 1.3 mg/dL (1.6-2.6)
[2017-02-26 10:27] LABS: Potassium 2.9 mmol/L (3.5-5.1)
[2017-02-26] MEDS: traMADol HCl 50 MG TAB PO SCH ×4 (11:44→20:44)
[2017-02-26] MEDS: Potassium Chloride 40 MEQ in Sodium Chloride 0.9% 500 ML IVPB SCH ×2 (13:09→17:24)
--- NOTE | 2017-02-26 13:44 | RAD ---
PORTABLE CHEST ONE VIEW: Date: 02-26-17 Time: 12:46 p.m. History: Pulmonary edema. FINDINGS/IMPRESSION: Comparison is made with exam of 02-14-17. The heart size is normal. There are bilateral pleural effusions with bibasilar infiltrates and mild p ulmonary vascular congestion. There are degenerative changes of the spine. POS: [facility]
[2017-02-26] MEDS: Pramipexole Di-HCl 1 MG TAB PO SCH ×2 (14:35→20:43)
--- NOTE | 2017-02-26 15:00 | PDOC.PN ---
- Subjective Encounter Start Date: 02/26/17 Encounter Start Time: 14:59 Subjective: pt unable to participate due to dementia -: care discussed w daughter at bedside -: pt agitated & uncomfortable.choked w food,npo now - Objective Resuscitation Status: Resuscitation Status FULL:Full Resuscitation MAR Reviewed: Yes Vital Signs & Weight: Vital Signs (12 hours) Temp Pulse Resp BP Pulse Ox 02/26/17 13:58 94 147/67 H 02/26/17 11:49 85 24 H 156/72 H 97 02/26/17 08:00 98.2 F 153 H 20 99 02/26/17 07:49 98.2 F 153 H 20 142/79 H 99 02/26/17 04:00 98.4 F 60 18 88/42 L 98 Weight Admit Weight 106 lb Weight 106 lb Most Recent Monitor Data Heart Rate from ECG 99 NIBP 157/73 NIBP BP-Mean 98 Respiration from ECG 11 SpO2 98 I&O: 02/25/17 02/26/17 02/27/17 06:59 06:59 06:59 Intake Total 1200 1475 Output Total 1450 1910 Balance -250 -435 Result Diagrams: 02/26/17 05:03 02/26/17 05:03 Additional Labs: Accuchecks 02/26/17 02/26/17 02/25/17 11:36 06:23 20:57 POC Glucose 168 H 134 H 140 H 02/25/17 17:43 POC Glucose 184 H Microbiology 02/19/17 15:30 Urine serrano catheter Urine Culture - Final NO GROWTH AT 36 HOURS Laboratory Tests 02/20/17 02/20/17 02/22/17 16:08 19:53 12:28 Troponin I 0.031 H 0.031 H 0.065 H 02/25/17 02/25/17 12:53 19:02 Troponin I 0.092 H 0.085 H Radiology Reviewed by me: Yes (CXR-bibasilar Infiltrates/congestion) Phys Exam - Physical Examination Constitutional: NAD fidgety and pulling on lines/tubes dry mucosa decreased at bases.rales present Cardiovascular: RRR, no significant murmur Gastrointestinal: soft, non-tender, no distention, positive bowel sounds Musculoskeletal: pulses present, edema present Neurological: moves all 4 limbs Psychiatric: normal affect Skin: no rash Dx/Plan (1) PNA (pneumonia) Code(s): J18.9 - PNEUMONIA, UNSPECIFIED ORGANISM Status: Acute Qualifiers: Pneumonia type: aspiration pneumonia Laterality: bilateral (2) Fluid overload Code(s): E87.70 - FLUID OVERLOAD, UNSPECIFIED Status: Acute (3) Hypomagnesemia Code(s): E83.42 - HYPOMAGNESEMIA Status: Acute (4) Hip fracture requiring operative repair Code(s): S72.009A - FRACTURE OF UNSP PART OF NECK OF UNSP FEMUR, INIT Status: Acute Qualifiers: Laterality: right Comment: s/p Hip arthroplasty 02/20/17 (5) Ischemic cardiomyopathy Code(s): I25.5 - ISCHEMIC CARDIOMYOPATHY Status: Chronic Comment: EF 35% (6) Hypokalemia Code(s): E87.6 - HYPOKALEMIA Status: Acute (7) CAD (coronary artery disease) Code(s): I25.10 - ATHSCL HEART DISEASE OF [place] CORONARY ARTERY W/O ANG PCTRS Status: Chronic (8) Diabetes mellitus type 2 in nonobese Code(s): E11.9 - TYPE 2 DIABETES MELLITUS WITHOUT COMPLICATIONS Status: Chronic Comment: iss (9) Parkinsons disease Code(s): G20 - PARKINSON'S DISEASE Status: Chronic (10) Protein-calorie malnutrition, mild Code(s): E44.1 - MILD PROTEIN-CALORIE MALNUTRITION Status: Chronic (11) Chronic combined systolic and diastolic CHF (congestive heart failure) Code(s): I50.42 - CHRONIC COMBINED SYSTOLIC AND DIASTOLIC HRT FAIL Status: Acute - Plan plan discussed w/ family, PT/OT, group social worker, respiratory therapy, incentive spirometry, DVT proph w/SCDs add empiric ABX.likley aspiartion.NPO.[employer] eval daily.will need Tube/NGT -: replace and recheck K and Mag.amlabs. -: DC IVF.Lasix .edema on CXR.cardiology following. -: post-op care per primary team.DVT,GI prophylaxis. -: minimize narcotics & sedatives. * .HR on and off controlled w intermittent tachycardia.cont TID BB IV. * am labs. * will continue t follow. * guarded prognosis Review of Systems - Review of Systems Other: cant be ontained due to parkinson/dementia - Medications/Allergies Allergies/Adverse Reactions: Allergies Allergy/AdvReac Type Severity Reaction Status Date / Time benzonatate Allergy Verified 01/06/17 15:11 [From Marge Dueñas] iodine Allergy Verified 01/06/17 15:11 Penicillins Allergy Verified 01/06/17 15:11 red dye Allergy Verified 01/06/17 15:11 adhesives Allergy Uncoded 01/06/17 15:39 Medications: Current Medications Acetaminophen (Tylenol) 650 mg PO Q4H PRN PRN Reason: DAMIAN/ T > 101F; Mild Pain (1-3) Last Admin: 02/24/17 16:29 Dose: 650 mg Acetaminophen (Tylenol) 650 mg [place] Q4H PRN PRN Reason: Pain 1-3 Last Admin: 02/26/17 14:00 Dose: 650 mg Aspirin (Aspirin) 325 mg PO BID [facility] Last Admin: 02/26/17 08:03 Dose: Not Given Atorvastatin Calcium (Lipitor) 10 mg PO HS [facility] Last Admin: 02/25/17 20:57 Dose: Not Given Bisacodyl (Dulcolax) 10 mg [place] DAILYPRN PRN PRN Reason: Constipation Last Admin: 02/23/17 12:11 Dose: 10 mg Carbidopa/Levodopa (Sinemet 25-100) 2 tab PO 0600,1100,1500,1800 [facility] Last Admin: 02/26/17 14:35 Dose: 2 tab Carbidopa/Levodopa (Sinemet 25-100) 2 tab PO 2100 [facility] Last Admin: 02/25/17 20:47 Dose: 2 tab Dextrose/Water (Dextrose 50%) 25 gm SLOW IVP PRN PRN PRN Reason: Hypoglycemia Ferrous Gluconate (Fergon) 324 mg PO BID-[facility] Last Admin: 02/26/17 08:03 Dose: Not Given Fludrocortisone Acetate (Florinef) 0.1 mg PO QAM [facility] Last Admin: 02/26/17 08:04 Dose: Not Given Glucagon (Glucagon) 1 mg IM PRN PRN PRN Reason: Hypoglycemia Hydralazine HCl (Apresoline) 10 mg SLOW IVP Q6H PRN PRN Reason: SBP Greater Than 180 Dextrose/Water (D5w) 1,000 mls @ 0 mls/hr IV .Q0M PRN; As Directed PRN Reason: Hypoglycemia Sodium Chloride (Normal Saline 0.9%) 1,000 mls @ 75 mls/hr IV .[id number] [facility] Last Admin: 02/26/17 10:57 Dose: Not Given Potassium Chloride 40 meq/ (Sodium Chloride) 520 mls @ 130 mls/hr IVPB Q4H [facility] Stop: 02/26/17 20:59 Last Admin: 02/26/17 13:09 Dose: 520 mls Meropenem 1 gm/ Sodium (Chloride) 100 mls @ 200 mls/hr IVPB Q8HR [facility] Insulin Human Lispro (Humalog) 0 units SC .MILD SLIDING SCALE PRN PRN Reason: Mild Correctional Scale Insulin Human Lispro (Humalog) 0 units SC .BEDTIME SLIDING SC PRN PRN Reason: Bedtime Correctional Scale Iron/Minerals/Multivitamins (Theragran M) 1 tab PO DAILY [facility] Last Admin: 02/26/17 08:04 Dose: Not Given Lorazepam (Ativan) 0.5 mg SLOW IVP HSPRN PRN PRN Reason: . Last Admin: 02/26/17 02:58 Dose: 0.5 mg Metoprolol Tartrate (Lopressor) 5 mg IVP 0200,1000,1800 [facility] Last Admin: 02/26/17 11:04 Dose: Not Given Mineral Oil/White Petrolatum (Eucerin Cream) 0 gm TOP PRN PRN PRN Reason: Itching Miscellaneous Medication (Pharmacy To Dose) 1 each PO ONE [facility] Stop: 02/28/17 12:46 Naloxone HCl (Narcan) 0.2 mg IV Q5MIN PRN PRN Reason: RR <=8 OR OBTUNDED/UNAROUSABLE Naloxone HCl (Narcan) 0.1 mg IVP Q15MIN PRN PRN Reason: URINARY RETENTION Nitroglycerin (Nitro-Bid 2% Ointment) 1 inch TOP Q8HR [facility] Last Admin: 02/26/17 14:00 Dose: 1 inch Ondansetron HCl (Zofran) 4 mg IVP Q6H PRN PRN Reason: Nausea/Vomiting Pramipexole Dihydrochloride (Mirapex) 2 mg PO 1500 [facility] Last Admin: 02/26/17 14:35 Dose: 2 mg Pramipexole Dihydrochloride (Mirapex) 2 mg PO HS [facility] Last Admin: 02/25/17 20:55 Dose: 2 mg Promethazine HCl (Phenergan) 12.5 mg IM Q4H PRN PRN Reason: Nausea/Vomiting Promethazine HCl (Phenergan Suppository) 25 mg [place] Q4H PRN PRN Reason: Nausea/Vomiting Senna/Docusate Sodium (Senokot S) 2 tab PO BID [facility] Last Admin: 02/26/17 08:04 Dose: Not Given Sodium Chloride (Flush - Normal Saline) 10 ml IVF PRN PRN PRN Reason: Saline Flush Last Admin: 02/25/17 21:07 Dose: 10 ml Tramadol HCl (Ultram) 50 mg PO Q4H [facility] Last Admin: 02/26/17 11:44 Dose: 50 mg Zolpidem Tartrate (Ambien) 5 mg PO HSPRN PRN PRN Reason: Insomnia Last Admin: 02/22/17 21:08 Dose: 5 mg
[2017-02-26] MEDS ORDERED: traMADol HCl 50 MG TAB PO SCH (15:45)
[2017-02-26] MEDS ORDERED: Meropenem 1 GM in Sodium Chloride 0.9% 100 ML IVPB SCH (16:00)
[2017-02-26] MEDS: Meropenem 1 GM in Sterile Water 20 ML SLOW IVP SCH (17:24)
[2017-02-26] MEDS ORDERED: Potassium Chloride 40 MEQ in Premix Bag 1 BAG IVPB SCH (18:15)
[2017-02-26] MEDS: Atorvastatin Calcium 10 MG TAB PO SCH (22:38)
[2017-02-27] MEDS: traMADol HCl 50 MG TAB PO SCH ×6 (00:24→20:37)
[2017-02-27] MEDS: Sodium Chloride 0.9% 1,000 ML IV SCH ×2 (01:11→04:52)
[2017-02-27] MEDS: Lorazepam 2 MG/ML VIAL SLOW IVP PRN ×3 (01:12→22:42)
[2017-02-27] MEDS: Meropenem 1 GM in Sterile Water 20 ML SLOW IVP SCH ×3 (01:31→17:12)
[2017-02-27] MEDS: Metoprolol Tartrate 5 MG/5 ML VIAL IVP SCH ×3 (01:33→18:08)
[2017-02-27 05:16] LABS: Hemoglobin 8.7 g/dL (12.0-16.0); Mean Corpuscular HGB CONC 32.6 g/dL (32.0-36.0); Mean Corpuscular Hemoglobin 31.1 pg (27.0-31.0); Mean Corpuscular Volume 95.2 fl (81.0-99.0); Mean Platelet Volume 7.3 fL (7.4-10.4); Platelet Count 252 thou/uL (130-400); RBC Distribution Width 13.6 % (11.5-14.5); Red Blood Cell (RBC) Count 2.81 mill/uL (4.20-5.40); White Blood Cell (WBC) Count 8.2 thou/uL (4.8-10.8)
[2017-02-27 05:27] LABS: Anion Gap 15 mmol/L (10-20); BUN (Urea Nitrogen) 15 mg/dL (9.8-20.1); Calc. Creatinine Clearance 71 mL/min (70-130); Calcium 8.2 mg/dL (7.8-10.44); Carbon Dioxide 27 mmol/L (23-31); Chloride 110 mmol/L (98-107); Estimated GFR-MDRD Greater than 90; Glucose 101 mg/dL (83-110); Sodium 149 mmol/L (136-145)
[2017-02-27 05:31] LABS: Potassium 2.9 mmol/L (3.5-5.1)
[2017-02-27] MEDS ORDERED: Potassium Chloride 40 MEQ in Sodium Chloride 0.9% 500 ML IVPB SCH ×2 (06:00→10:00)
[2017-02-27] MEDS: Nitroglycerin 2% Ointment 1 INCH/1 GM Packet TOP SCH ×3 (06:46→20:40)
[2017-02-27] MEDS: Carbidopa/Levodopa 25-100 mg Tablet PO SCH ×5 (06:47→20:39)
[2017-02-27] MEDS: Aspirin 325 MG TAB PO SCH ×2 (08:35→20:53)
[2017-02-27] MEDS: Fludrocortisone Acetate 0.1 MG TAB PO SCH (08:35)
[2017-02-27] MEDS: Ferrous Gluconate 324 MG TAB PO SCH ×2 (08:35→17:12)
[2017-02-27] MEDS: Multivitamin W/ Minerals 1 TAB PO SCH (08:35)
[2017-02-27] MEDS: Senokot S 8.6-50 MG TAB PO SCH ×2 (08:35→20:53)
[2017-02-27] MEDS: Acetaminophen 325 MG TAB PO PRN (11:03)
[2017-02-27] MEDS: Acetaminophen 650 MG Suppository PR PRN ×2 (13:47→18:08)
[2017-02-27 14:10] LABS: Potassium 3.9 mmol/L (3.5-5.1)
--- NOTE | 2017-02-27 14:50 | PDOC.PN ---
- Subjective Encounter Start Date: 02/27/17 Encounter Start Time: 14:48 Subjective: care discussed w daughter.doing slightly better w pain control -: no new events - Objective Resuscitation Status: Resuscitation Status FULL:Full Resuscitation MAR Reviewed: Yes Vital Signs & Weight: Vital Signs (12 hours) Temp Pulse Resp BP BP Pulse Ox 02/27/17 12:11 87 173/81 H 02/27/17 11:05 150 H 186/112 H 02/27/17 08:30 98.3 F 81 20 100 02/27/17 08:29 98.3 F 81 20 163/69 H 100 02/27/17 04:00 98.3 F 83 15 150/60 H 96 Weight Admit Weight 106 lb Weight 106 lb Most Recent Monitor Data Heart Rate from ECG 99 NIBP 157/73 NIBP BP-Mean 98 Respiration from ECG 11 SpO2 98 I&O: 02/26/17 02/27/17 02/28/17 06:59 06:59 06:59 Intake Total 1475 810 Output Total 1910 4005 Balance -435 -8381 Result Diagrams: 02/27/17 04:45 02/27/17 13:47 Additional Labs: Accuchecks 02/27/17 02/27/17 02/26/17 11:14 05:41 20:49 POC Glucose 132 H 113 H 143 H 02/26/17 16:46 POC Glucose 169 H Microbiology 02/19/17 15:30 Urine serrano catheter Urine Culture - Final NO GROWTH AT 36 HOURS Laboratory Tests 12/05/15 02/18/17 02/24/17 22:08 13:09 09:14 Sodium 141 148 H B-Natriuretic Peptide 36.7 02/25/17 02/27/17 02/27/17 12:53 04:45 04:45 Sodium 148 H 149 H B-Natriuretic Peptide 1362.6 H Phys Exam - Physical Examination Constitutional: NAD pale.fidgety HEENT: PERRLA, moist MMs, sclera anicteric, oral pharynx no lesions Neck: no nodes, no JVD, supple, full ROM Respiratory: no wheezing, no rales, no rhonchi decreased at bases Cardiovascular: RRR, no significant murmur Gastrointestinal: soft, non-tender, no distention, positive bowel sounds Musculoskeletal: no edema, pulses present R leg brace Neurological: non-focal, normal sensation, moves all 4 limbs Psychiatric: normal affect Dx/Plan (1) PNA (pneumonia) Code(s): J18.9 - PNEUMONIA, UNSPECIFIED ORGANISM Status: Acute Qualifiers: Pneumonia type: aspiration pneumonia Laterality: bilateral (2) Fluid overload Code(s): E87.70 - FLUID OVERLOAD, UNSPECIFIED Status: Acute (3) Hypomagnesemia Code(s): E83.42 - HYPOMAGNESEMIA Status: Acute (4) Hypokalemia Code(s): E87.6 - HYPOKALEMIA Status: Acute (5) Hip fracture requiring operative repair Code(s): S72.009A - FRACTURE OF UNSP PART OF NECK OF UNSP FEMUR, INIT Status: Acute Qualifiers: Laterality: right Comment: s/p Hip arthroplasty 02/20/17 (6) Ischemic cardiomyopathy Code(s): I25.5 - ISCHEMIC CARDIOMYOPATHY Status: Chronic Comment: Ef per recent ECHO improved to 50-55% (7) CAD (coronary artery disease) Code(s): I25.10 - ATHSCL HEART DISEASE OF [place] CORONARY ARTERY W/O ANG PCTRS Status: Chronic (8) Diabetes mellitus type 2 in nonobese Code(s): E11.9 - TYPE 2 DIABETES MELLITUS WITHOUT COMPLICATIONS Status: Chronic Comment: iss (9) Parkinsons disease Code(s): G20 - PARKINSON'S DISEASE Status: Chronic (10) Protein-calorie malnutrition, mild Code(s): E44.1 - MILD PROTEIN-CALORIE MALNUTRITION Status: Chronic (11) Chronic combined systolic and diastolic CHF (congestive heart failure) Code(s): I50.42 - CHRONIC COMBINED SYSTOLIC AND DIASTOLIC HRT FAIL Status: Acute - Plan serrano catheter, continue antibiotics, PT/OT, respiratory therapy, incentive spirometry, out of bed/ambulate, DVT proph w/SCDs Pt to start thickened food w aspiration precautions per family wishes -: cont ABx for possible aspiration PNA.family aware of risks of worsening -: IVF held as high BNP.restart if oral intake not adequate.cardiology followi -: replace and rechecl potassium & magnesium. -: will follow. guarded prognosis. * . Review of Systems - Review of Systems Other: unobtainable due to dementia - Medications/Allergies Allergies/Adverse Reactions: Allergies Allergy/AdvReac Type Severity Reaction Status Date / Time benzonatate Allergy Verified 01/06/17 15:11 [From Marge Dueñas] iodine Allergy Verified 01/06/17 15:11 Penicillins Allergy Verified 01/06/17 15:11 red dye Allergy Verified 01/06/17 15:11 adhesives Allergy Uncoded 01/06/17 15:39 Medications: Current Medications Acetaminophen (Tylenol) 650 mg PO Q4H PRN PRN Reason: DAMIAN/ T > 101F; Mild Pain (1-3) Last Admin: 02/27/17 11:03 Dose: 650 mg Acetaminophen (Tylenol) 650 mg ND Q4H PRN PRN Reason: Pain 1-3 Last Admin: 02/27/17 13:47 Dose: 650 mg Aspirin (Aspirin) 325 mg PO BID [facility] Last Admin: 02/27/17 08:35 Dose: Not Given Atorvastatin Calcium (Lipitor) 10 mg PO HS [facility] Last Admin: 02/26/17 22:38 Dose: Not Given Bisacodyl (Dulcolax) 10 mg ND DAILYPRN PRN PRN Reason: Constipation Last Admin: 02/23/17 12:11 Dose: 10 mg Carbidopa/Levodopa (Sinemet 25-100) 2 tab PO 0600,1100,1500,1800 [facility] Last Admin: 02/27/17 11:03 Dose: 2 tab Carbidopa/Levodopa (Sinemet 25-100) 2 tab PO 2100 [facility] Last Admin: 02/26/17 20:48 Dose: 2 tab Dextrose/Water (Dextrose 50%) 25 gm SLOW IVP PRN PRN PRN Reason: Hypoglycemia Ferrous Gluconate (Fergon) 324 mg PO BID[facility] Last Admin: 02/27/17 08:35 Dose: Not Given Fludrocortisone Acetate (Florinef) 0.1 mg PO QAM [facility] Last Admin: 02/27/17 08:35 Dose: Not Given Glucagon (Glucagon) 1 mg IM PRN PRN PRN Reason: Hypoglycemia Hydralazine HCl (Apresoline) 10 mg SLOW IVP Q6H PRN PRN Reason: SBP Greater Than 180 Dextrose/Water (D5w) 1,000 mls @ 0 mls/hr IV .Q0M PRN; As Directed PRN Reason: Hypoglycemia Meropenem 1 gm/ Sterile Water 20 mls @ 240 mls/hr SLOW IVP 0100,0900,1700 [facility] Last Admin: 02/27/17 08:35 Dose: 20 mls Magnesium Sulfate 1 gm/ Sodium (Chloride) 102 mls @ 100 mls/hr IVPB ONE [facility] Insulin Human Lispro (Humalog) 0 units SC .MILD SLIDING SCALE PRN PRN Reason: Mild Correctional Scale Insulin Human Lispro (Humalog) 0 units SC .BEDTIME SLIDING SC PRN PRN Reason: Bedtime Correctional Scale Iron/Minerals/Multivitamins (Theragran M) 1 tab PO DAILY [facility] Last Admin: 02/27/17 08:35 Dose: Not Given Lorazepam (Ativan) 0.5 mg SLOW IVP HSPRN PRN PRN Reason: . Last Admin: 02/27/17 01:12 Dose: 0.5 mg Metoprolol Tartrate (Lopressor) 5 mg IVP 0200,1000,1800 [facility] Last Admin: 02/27/17 11:03 Dose: 5 mg Mineral Oil/White Petrolatum (Eucerin Cream) 0 gm TOP PRN PRN PRN Reason: Itching Miscellaneous Medication (Pharmacy To Dose) 1 each PO ONE [facility] Stop: 02/28/17 12:46 Naloxone HCl (Narcan) 0.2 mg IV Q5MIN PRN PRN Reason: RR <=8 OR OBTUNDED/UNAROUSABLE Naloxone HCl (Narcan) 0.1 mg IVP Q15MIN PRN PRN Reason: URINARY RETENTION Nitroglycerin (Nitro-Bid 2% Ointment) 1 inch TOP Q8HR [facility] Last Admin: 02/27/17 06:46 Dose: 1 inch Ondansetron HCl (Zofran) 4 mg IVP Q6H PRN PRN Reason: Nausea/Vomiting Pramipexole Dihydrochloride (Mirapex) 2 mg PO 1500 [facility] Last Admin: 02/26/17 14:35 Dose: 2 mg Pramipexole Dihydrochloride (Mirapex) 2 mg PO HS [facility] Last Admin: 02/26/17 20:43 Dose: 2 mg Promethazine HCl (Phenergan) 12.5 mg IM Q4H PRN PRN Reason: Nausea/Vomiting Promethazine HCl (Phenergan Suppository) 25 mg ND Q4H PRN PRN Reason: Nausea/Vomiting Senna/Docusate Sodium (Senokot S) 2 tab PO BID [facility] Last Admin: 02/27/17 08:35 Dose: Not Given Sodium Chloride (Flush - Normal Saline) 10 ml IVF PRN PRN PRN Reason: Saline Flush Last Admin: 02/25/17 21:07 Dose: 10 ml Tramadol HCl (Ultram) 50 mg PO Q4H [facility] Last Admin: 02/27/17 12:10 Dose: 50 mg Zolpidem Tartrate (Ambien) 5 mg PO HSPRN PRN PRN Reason: Insomnia Last Admin: 02/22/17 21:08 Dose: 5 mg
[2017-02-27] MEDS: Pramipexole Di-HCl 1 MG TAB PO SCH ×2 (15:16→20:52)
[2017-02-27] MEDS ORDERED: Furosemide 20 MG/2 ML VIAL SLOW IVP SCH (16:15)
[2017-02-27] MEDS: Atorvastatin Calcium 10 MG TAB PO SCH (20:53)
[2017-02-28] MEDS: Metoprolol Tartrate 5 MG/5 ML VIAL IVP SCH ×4 (03:47→21:54)
[2017-02-28] MEDS: Acetaminophen 650 MG Suppository PR PRN ×3 (03:47→15:50)
[2017-02-28] MEDS: Meropenem 1 GM in Sterile Water 20 ML SLOW IVP SCH ×3 (03:48→17:40)
[2017-02-28] MEDS: traMADol HCl 50 MG TAB PO SCH ×6 (04:00→21:52)
[2017-02-28 05:51] LABS: Hemoglobin 8.6 g/dL (12.0-16.0); Mean Corpuscular HGB CONC 31.6 g/dL (32.0-36.0); Mean Corpuscular Hemoglobin 30.3 pg (27.0-31.0); Mean Corpuscular Volume 95.7 fl (81.0-99.0); Mean Platelet Volume 7.6 fL (7.4-10.4); Platelet Count 304 thou/uL (130-400); RBC Distribution Width 13.7 % (11.5-14.5); Red Blood Cell (RBC) Count 2.83 mill/uL (4.20-5.40); White Blood Cell (WBC) Count 5.9 thou/uL (4.8-10.8)
[2017-02-28] MEDS: Nitroglycerin 2% Ointment 1 INCH/1 GM Packet TOP SCH ×2 (05:54→15:14)
[2017-02-28] MEDS: Carbidopa/Levodopa 25-100 mg Tablet PO SCH ×5 (05:54→21:53)
[2017-02-28 06:05] LABS: Anion Gap 17 mmol/L (10-20); BUN (Urea Nitrogen) 16 mg/dL (9.8-20.1); Calc. Creatinine Clearance 86 mL/min (70-130); Calcium 8.5 mg/dL (7.8-10.44); Carbon Dioxide 28 mmol/L (23-31); Chloride 107 mmol/L (98-107); Estimated GFR-MDRD Greater than 90; Glucose 93 mg/dL (83-110); Magnesium 1.9 mg/dL (1.6-2.6); Potassium 3.3 mmol/L (3.5-5.1); Sodium 149 mmol/L (136-145)
[2017-02-28] MEDS: Ferrous Gluconate 324 MG TAB PO SCH ×2 (09:25→15:45)
[2017-02-28] MEDS: Aspirin 325 MG TAB PO SCH ×2 (09:25→21:54)
[2017-02-28] MEDS: Fludrocortisone Acetate 0.1 MG TAB PO SCH (09:25)
[2017-02-28] MEDS: Multivitamin W/ Minerals 1 TAB PO SCH (09:26)
[2017-02-28] MEDS: Senokot S 8.6-50 MG TAB PO SCH ×2 (09:26→21:54)
[2017-02-28] MEDS ORDERED: Potassium Chloride 40 MEQ in Sodium Chloride 0.9% 500 ML IVPB SCH (10:00)
[2017-02-28] MEDS: 1/2 NS w/KCL 20 mEq 1,000 ML IV SCH (10:34)
--- NOTE | 2017-02-28 15:02 | PDOC.PN ---
- Subjective Encounter Start Date: 02/28/17 Encounter Start Time: 15:00 Subjective: remains the same.somnolent and confused -: minimal po intake - Objective Resuscitation Status: Resuscitation Status FULL:Full Resuscitation MAR Reviewed: Yes Vital Signs & Weight: Vital Signs (12 hours) Temp Pulse Resp BP BP Pulse Ox 02/28/17 07:30 99.1 F 81 20 97 02/28/17 07:25 99.1 F 81 20 97/54 L 97 02/28/17 04:00 99.3 F 88 20 127/59 L 99 Weight Admit Weight 106 lb Weight 137 lb 6.4 oz Most Recent Monitor Data Heart Rate from ECG 99 NIBP 157/73 NIBP BP-Mean 98 Respiration from ECG 11 SpO2 98 I&O: 02/27/17 02/28/17 03/01/17 06:59 06:59 06:59 Intake Total 810 120 Output Total 4005 1775 Balance -6882 -1166 Result Diagrams: 02/28/17 04:36 02/28/17 04:36 Additional Labs: Accuchecks 02/28/17 02/27/17 02/27/17 06:01 20:40 17:16 POC Glucose 106 140 H 132 H Microbiology 02/19/17 15:30 Urine serrano catheter Urine Culture - Final NO GROWTH AT 36 HOURS Phys Exam - Physical Examination Constitutional: NAD HEENT: PERRLA, moist MMs, sclera anicteric, oral pharynx no lesions Neck: no nodes, no JVD, supple, full ROM Respiratory: no wheezing, no rales, no rhonchi, clear to auscultation bilateral Cardiovascular: RRR, no significant murmur Gastrointestinal: soft, non-tender, no distention, positive bowel sounds Musculoskeletal: no edema, pulses present Neurological: non-focal, normal sensation, moves all 4 limbs Psychiatric: normal affect, A&O x 3 Skin: no rash Dx/Plan (1) PNA (pneumonia) Code(s): J18.9 - PNEUMONIA, UNSPECIFIED ORGANISM Status: Acute Qualifiers: Pneumonia type: aspiration pneumonia Laterality: bilateral (2) Fluid overload Code(s): E87.70 - FLUID OVERLOAD, UNSPECIFIED Status: Resolved (3) Hypomagnesemia Code(s): E83.42 - HYPOMAGNESEMIA Status: Resolved (4) Hypokalemia Code(s): E87.6 - HYPOKALEMIA Status: Resolved (5) Hip fracture requiring operative repair Code(s): S72.009A - FRACTURE OF UNSP PART OF NECK OF UNSP FEMUR, INIT Status: Acute Qualifiers: Laterality: right Comment: s/p Hip arthroplasty 02/20/17 (6) Ischemic cardiomyopathy Code(s): I25.5 - ISCHEMIC CARDIOMYOPATHY Status: Chronic Comment: Ef per recent ECHO improved to 50-55% (7) CAD (coronary artery disease) Code(s): I25.10 - ATHSCL HEART DISEASE OF [place] CORONARY ARTERY W/O ANG PCTRS Status: Chronic (8) Diabetes mellitus type 2 in nonobese Code(s): E11.9 - TYPE 2 DIABETES MELLITUS WITHOUT COMPLICATIONS Status: Chronic Comment: iss (9) Parkinsons disease Code(s): G20 - PARKINSON'S DISEASE Status: Chronic (10) Protein-calorie malnutrition, mild Code(s): E44.1 - MILD PROTEIN-CALORIE MALNUTRITION Status: Chronic (11) Chronic combined systolic and diastolic CHF (congestive heart failure) Code(s): I50.42 - CHRONIC COMBINED SYSTOLIC AND DIASTOLIC HRT FAIL Status: Acute - Plan plan discussed w/ family, serrano catheter, continue antibiotics, PT/OT, respiratory therapy, incentive spirometry, out of bed/ambulate, DVT proph w/SCDs Pt doing poorly w gaurded [facility] prognosis.palliative team consulted -: Family seems to be in denial.want Dobhoff for TF-consult dietitian -: start IVf for now as sodium higher today. -: cont ABx for aspiartion PNA.recheck UA w Cx per family request -: am labs * . Review of Systems - Review of Systems Other: unobtainable due to somnolence and confusion - Medications/Allergies Allergies/Adverse Reactions: Allergies Allergy/AdvReac Type Severity Reaction Status Date / Time benzonatate Allergy Verified 01/06/17 15:11 [From Marge Dueñas] iodine Allergy Verified 01/06/17 15:11 Penicillins Allergy Verified 01/06/17 15:11 red dye Allergy Verified 01/06/17 15:11 adhesives Allergy Uncoded 01/06/17 15:39 Medications: Current Medications Acetaminophen (Tylenol) 650 mg PO Q4H PRN PRN Reason: DAMIAN/ T > 101F; Mild Pain (1-3) Last Admin: 02/27/17 11:03 Dose: 650 mg Acetaminophen (Tylenol) 650 mg ID Q4H PRN PRN Reason: Pain 1-3 Last Admin: 02/28/17 09:21 Dose: 650 mg Aspirin (Aspirin) 325 mg PO BID [facility] Last Admin: 02/28/17 09:25 Dose: Not Given Atorvastatin Calcium (Lipitor) 10 mg PO HS [facility] Last Admin: 02/27/17 20:53 Dose: Not Given Bisacodyl (Dulcolax) 10 mg ID DAILYPRN PRN PRN Reason: Constipation Last Admin: 02/23/17 12:11 Dose: 10 mg Carbidopa/Levodopa (Sinemet 25-100) 2 tab PO 0600,1100,1500,1800 [facility] Last Admin: 02/28/17 10:37 Dose: 2 tab Carbidopa/Levodopa (Sinemet 25-100) 2 tab PO 2100 [facility] Last Admin: 02/27/17 20:39 Dose: 2 tab Dextrose/Water (Dextrose 50%) 25 gm SLOW IVP PRN PRN PRN Reason: Hypoglycemia Ferrous Gluconate (Fergon) 324 mg PO BID-[facility] Last Admin: 02/28/17 09:25 Dose: Not Given Fludrocortisone Acetate (Florinef) 0.1 mg PO QAM [facility] Last Admin: 02/28/17 09:25 Dose: Not Given Glucagon (Glucagon) 1 mg IM PRN PRN PRN Reason: Hypoglycemia Hydralazine HCl (Apresoline) 10 mg SLOW IVP Q6H PRN PRN Reason: SBP Greater Than 180 Dextrose/Water (D5w) 1,000 mls @ 0 mls/hr IV .Q0M PRN; As Directed PRN Reason: Hypoglycemia Meropenem 1 gm/ Sterile Water 20 mls @ 240 mls/hr SLOW IVP 0100,0900,1700 [facility] Last Admin: 02/28/17 10:33 Dose: 20 mls Potassium Chloride/Sodium Chloride (1/2 Ns W/Kcl 20 Meq) 1,000 mls @ 75 mls/hr IV .[id number] [facility] Last Admin: 02/28/17 10:34 Dose: 1,000 mls Insulin Human Lispro (Humalog) 0 units SC .MILD SLIDING SCALE PRN PRN Reason: Mild Correctional Scale Insulin Human Lispro (Humalog) 0 units SC .BEDTIME SLIDING SC PRN PRN Reason: Bedtime Correctional Scale Iron/Minerals/Multivitamins (Theragran M) 1 tab PO DAILY [facility] Last Admin: 02/28/17 09:26 Dose: Not Given Lorazepam (Ativan) 0.5 mg SLOW IVP HSPRN PRN PRN Reason: . Last Admin: 02/27/17 22:42 Dose: 0.5 mg Metoprolol Tartrate (Lopressor) 5 mg IVP 0200,1000,1800 [facility] Last Admin: 02/28/17 10:34 Dose: 5 mg Mineral Oil/White Petrolatum (Eucerin Cream) 0 gm TOP PRN PRN PRN Reason: Itching Naloxone HCl (Narcan) 0.2 mg IV Q5MIN PRN PRN Reason: RR <=8 OR OBTUNDED/UNAROUSABLE Naloxone HCl (Narcan) 0.1 mg IVP Q15MIN PRN PRN Reason: URINARY RETENTION Nitroglycerin (Nitro-Bid 2% Ointment) 1 inch TOP Q8HR [facility] Last Admin: 02/28/17 05:54 Dose: 1 inch Ondansetron HCl (Zofran) 4 mg IVP Q6H PRN PRN Reason: Nausea/Vomiting Pramipexole Dihydrochloride (Mirapex) 2 mg PO 1500 [facility] Last Admin: 02/27/17 15:16 Dose: 2 mg Pramipexole Dihydrochloride (Mirapex) 2 mg PO HS [facility] Last Admin: 02/27/17 20:52 Dose: 2 mg Promethazine HCl (Phenergan) 12.5 mg IM Q4H PRN PRN Reason: Nausea/Vomiting Promethazine HCl (Phenergan Suppository) 25 mg ID Q4H PRN PRN Reason: Nausea/Vomiting Senna/Docusate Sodium (Senokot S) 2 tab PO BID [facility] Last Admin: 02/28/17 09:26 Dose: Not Given Sodium Chloride (Flush - Normal Saline) 10 ml IVF PRN PRN PRN Reason: Saline Flush Last Admin: 02/27/17 22:42 Dose: 10 ml Tramadol HCl (Ultram) 50 mg PO Q4H [facility] Last Admin: 02/28/17 12:48 Dose: 50 mg Zolpidem Tartrate (Ambien) 5 mg PO HSPRN PRN PRN Reason: Insomnia Last Admin: 02/22/17 21:08 Dose: 5 mg
[2017-02-28] MEDS: Pramipexole Di-HCl 1 MG TAB PO SCH ×2 (15:44→21:53)
[2017-02-28] MEDS: Lorazepam 2 MG/ML VIAL SLOW IVP PRN (15:45)
[2017-02-28] MEDS: Diabetic Tussin 200 MG/10 ML UDCUP PO PRN (15:49)
[2017-02-28 16:59] LABS: Bilirubin Negative (Negative); Blood, Urine Large (Negative); Clarity CLEAR (Clear); Glucose, Urine (Dipstick) Negative (Negative); Leukocyte Negative (Negative); Nitrite Negative (Negative); Protein, Urine (Dipstick) 30 mg/dL (Neg-Trace); Specific Gravity, Urine 1.018 (1.002-1.036); pH, Urine 7.5 (5.0-9.0)
[2017-02-28 17:02] LABS: Bacteria/HPF None Seen HPF (None Seen); Hyaline Casts/LPF 0-3 HYALINE CAST LPF (0-3 Hyaline); Pathc Cast-AUWi Flag 0.54 (0-2.49); RBC/HPF GREATER THAN 50-TNTC HPF (0-3); Squamous Epithelial 0-3 HPF (0-3)
[2017-02-28] MEDS ORDERED: Metoprolol Tartrate 5 MG/5 ML VIAL IVP SCH (18:00)
--- NOTE | 2017-02-28 19:33 | RAD ---
ABDOMEN ONE VIEW 02/28/17 HISTORY: Dobhoff placement. COMPARISON: None. FINDINGS: Enteric tube is in place with tip at the gastric body. No dilated loops of small bowel. Layering left effusion. IMPRESSION: Enteric tube tip at the gastric body. POS: LYNN
[2017-02-28] MEDS: Atorvastatin Calcium 10 MG TAB PO SCH (21:54)
[2017-03-01] MEDS: Meropenem 1 GM in Sterile Water 20 ML SLOW IVP SCH ×3 (01:17→17:36)
[2017-03-01] MEDS: traMADol HCl 50 MG TAB PO SCH ×6 (01:18→21:36)
[2017-03-01] MEDS: 1/2 NS w/KCL 20 mEq 1,000 ML IV SCH ×3 (05:08→22:12)
[2017-03-01] MEDS: Carbidopa/Levodopa 25-100 mg Tablet PO SCH ×5 (05:17→20:24)
[2017-03-01] MEDS: Metoprolol Tartrate 5 MG/5 ML VIAL IVP SCH ×4 (05:20→21:58)
[2017-03-01 06:26] LABS: Hemoglobin 9.2 g/dL (12.0-16.0); Mean Corpuscular HGB CONC 31.2 g/dL (32.0-36.0); Mean Corpuscular Hemoglobin 29.8 pg (27.0-31.0); Mean Corpuscular Volume 95.3 fl (81.0-99.0); Mean Platelet Volume 6.9 fL (7.4-10.4); Platelet Count 310 thou/uL (130-400); RBC Distribution Width 13.6 % (11.5-14.5); White Blood Cell (WBC) Count 4.9 thou/uL (4.8-10.8)
[2017-03-01 06:46] LABS: Anion Gap 11 mmol/L (10-20); BUN (Urea Nitrogen) 21 mg/dL (9.8-20.1); Calc. Creatinine Clearance 79 mL/min (70-130); Calcium 8.4 mg/dL (7.8-10.44); Carbon Dioxide 32 mmol/L (23-31); Chloride 103 mmol/L (98-107); Estimated GFR-MDRD Greater than 90; Glucose 119 mg/dL (83-110); Potassium 3.7 mmol/L (3.5-5.1); Sodium 142 mmol/L (136-145)
[2017-03-01] MEDS: Multivitamin W/ Minerals 1 TAB PO SCH (09:40)
[2017-03-01] MEDS: Aspirin 325 MG TAB PO SCH ×2 (09:40→20:23)
[2017-03-01] MEDS: Fludrocortisone Acetate 0.1 MG TAB PO SCH (09:41)
[2017-03-01] MEDS: Senokot S 8.6-50 MG TAB PO SCH ×2 (09:41→20:24)
[2017-03-01] MEDS: Ferrous Gluconate 324 MG TAB PO SCH ×2 (10:06→15:44)
[2017-03-01] MEDS: Acetaminophen 325 MG TAB PO PRN (11:14)
[2017-03-01] MEDS: Diabetic Tussin 200 MG/10 ML UDCUP PO PRN (11:15)
[2017-03-01] MEDS ORDERED: Furosemide 20 MG/2 ML VIAL SLOW IVP SCH (14:30)
--- NOTE | 2017-03-01 15:03 | PDOC.PN ---
- Subjective Encounter Start Date: 03/01/17 Encounter Start Time: 15:01 Subjective: pt remains largely unresponsive w family at bedside -: family requests gressive measure despite minmal improvement - Objective Resuscitation Status: Resuscitation Status FULL:Full Resuscitation MAR Reviewed: Yes Vital Signs & Weight: Vital Signs (12 hours) Temp Pulse Resp BP BP Pulse Ox 03/01/17 11:42 98.1 F 86 20 131/64 100 03/01/17 07:26 97.7 F 59 L 18 134/63 100 03/01/17 07:10 97.7 F 59 L 18 100 03/01/17 04:00 97.7 F 59 L 20 132/63 100 Weight Admit Weight 106 lb Weight 138 lb 1.6 oz Most Recent Monitor Data Heart Rate from ECG 99 NIBP 157/73 NIBP BP-Mean 98 Respiration from ECG 11 SpO2 98 I&O: 02/28/17 03/01/17 03/02/17 06:59 06:59 06:59 Intake Total 120 920 Output Total 1775 1800 Balance -1655 -880 Result Diagrams: 03/01/17 06:12 03/01/17 06:12 Additional Labs: Accuchecks 03/01/17 03/01/17 11:59 06:12 POC Glucose 158 H 116 H Microbiology 02/19/17 15:30 Urine serrano catheter Urine Culture - Final NO GROWTH AT 36 HOURS 02/28/17 16:15 Urine serrano catheter Urine Culture - Preliminary NO GROWTH AT 12 HOURS Phys Exam - Physical Examination Constitutional: NAD smiles when name called out HEENT: PERRLA, moist MMs, sclera anicteric, oral pharynx no lesions Neck: no nodes, no JVD, supple, full ROM Respiratory: no wheezing, no rales, no rhonchi, clear to auscultation bilateral coarse at bases Cardiovascular: RRR, no significant murmur Gastrointestinal: soft, non-tender, no distention, positive bowel sounds Musculoskeletal: no edema, pulses present Neurological: non-focal, normal sensation, moves all 4 limbs Psychiatric: normal affect Skin: no rash Dx/Plan (1) PNA (pneumonia) Code(s): J18.9 - PNEUMONIA, UNSPECIFIED ORGANISM Status: Acute Qualifiers: Pneumonia type: aspiration pneumonia Laterality: bilateral (2) Hypomagnesemia Code(s): E83.42 - HYPOMAGNESEMIA Status: Resolved (3) Hypokalemia Code(s): E87.6 - HYPOKALEMIA Status: Resolved (4) Hip fracture requiring operative repair Code(s): S72.009A - FRACTURE OF UNSP PART OF NECK OF UNSP FEMUR, INIT Status: Acute Qualifiers: Laterality: right Comment: s/p Hip arthroplasty 02/20/17 (5) Ischemic cardiomyopathy Code(s): I25.5 - ISCHEMIC CARDIOMYOPATHY Status: Chronic Comment: Ef per recent ECHO improved to 50-55% (6) CAD (coronary artery disease) Code(s): I25.10 - ATHSCL HEART DISEASE OF [place] CORONARY ARTERY W/O ANG PCTRS Status: Chronic (7) Diabetes mellitus type 2 in nonobese Code(s): E11.9 - TYPE 2 DIABETES MELLITUS WITHOUT COMPLICATIONS Status: Chronic Comment: iss (8) Parkinsons disease Code(s): G20 - PARKINSON'S DISEASE Status: Chronic (9) Protein-calorie malnutrition, mild Code(s): E44.1 - MILD PROTEIN-CALORIE MALNUTRITION Status: Chronic (10) Chronic combined systolic and diastolic CHF (congestive heart failure) Code(s): I50.42 - CHRONIC COMBINED SYSTOLIC AND DIASTOLIC HRT FAIL Status: Acute (11) Fluid overload Code(s): E87.70 - FLUID OVERLOAD, UNSPECIFIED Status: Resolved - Plan plan discussed w/ family, serrano catheter, continue antibiotics, PT/OT, respiratory therapy, incentive spirometry, out of bed/ambulate, DVT proph w/SCDs Overall poor prgnosis but family seem to be in denial. -: Cont ABx. Dobhoff w TF started per family request yesterday -: cont IVF as po intake still minimal w dehydration. -: OT,PT per family request but pt not able to participate. -: family thinks she can be Dced home if given few more days * .will continue full supportive care for now,. * PCt consulted Review of Systems - Review of Systems Other: unobtainable as pt very confused,falling asleep - Medications/Allergies Allergies/Adverse Reactions: Allergies Allergy/AdvReac Type Severity Reaction Status Date / Time benzonatate Allergy Verified 01/06/17 15:11 [From Marge Dueñas] iodine Allergy Verified 01/06/17 15:11 Penicillins Allergy Verified 01/06/17 15:11 red dye Allergy Verified 01/06/17 15:11 adhesives Allergy Uncoded 01/06/17 15:39 Medications: Current Medications Acetaminophen (Tylenol) 650 mg PO Q4H PRN PRN Reason: DAMIAN/ T > 101F; Mild Pain (1-3) Last Admin: 03/01/17 11:14 Dose: 650 mg Acetaminophen (Tylenol) 650 mg [place] Q4H PRN PRN Reason: Pain 1-3 Last Admin: 02/28/17 15:50 Dose: 650 mg Aspirin (Aspirin) 325 mg PO BID [facility] Last Admin: 03/01/17 09:40 Dose: 325 mg Atorvastatin Calcium (Lipitor) 10 mg PO [facility] Last Admin: 02/28/17 21:54 Dose: Not Given Bisacodyl (Dulcolax) 10 mg [place] DAILYPRN PRN PRN Reason: Constipation Last Admin: 02/23/17 12:11 Dose: 10 mg Carbidopa/Levodopa (Sinemet 25-100) 2 tab PO 0600,1100,1500,1800 [facility] Last Admin: 03/01/17 11:15 Dose: 2 tab Carbidopa/Levodopa (Sinemet 25-100) 2 tab PO 2100 [facility] Last Admin: 02/28/17 21:53 Dose: 2 tab Dextrose/Water (Dextrose 50%) 25 gm SLOW IVP PRN PRN PRN Reason: Hypoglycemia Ferrous Gluconate (Fergon) 324 mg PO BID-[facility] Last Admin: 03/01/17 10:06 Dose: Not Given Fludrocortisone Acetate (Florinef) 0.1 mg PO QAM [facility] Last Admin: 03/01/17 09:41 Dose: 0.1 mg Furosemide (Lasix) 20 mg SLOW IVP NOW [facility] Stop: 03/01/17 16:00 Glucagon (Glucagon) 1 mg IM PRN PRN PRN Reason: Hypoglycemia Guaifenesin (Robitussin Sf) 400 mg PO Q6H PRN PRN Reason: Cough Last Admin: 03/01/17 11:15 Dose: 400 mg Hydralazine HCl (Apresoline) 10 mg SLOW IVP Q6H PRN PRN Reason: SBP Greater Than 180 Dextrose/Water (D5w) 1,000 mls @ 0 mls/hr IV .Q0M PRN; As Directed PRN Reason: Hypoglycemia Meropenem 1 gm/ Sterile Water 20 mls @ 240 mls/hr SLOW IVP 0100,0900,1700 [facility] Last Admin: 03/01/17 09:41 Dose: 20 mls Potassium Chloride/Sodium Chloride (1/2 Ns W/Kcl 20 Meq) 1,000 mls @ 75 mls/hr IV .[id number] [facility] Last Admin: 03/01/17 13:23 Dose: Not Given Insulin Human Lispro (Humalog) 0 units SC .MILD SLIDING SCALE PRN PRN Reason: Mild Correctional Scale Insulin Human Lispro (Humalog) 0 units SC .BEDTIME SLIDING SC PRN PRN Reason: Bedtime Correctional Scale Iron/Minerals/Multivitamins (Theragran M) 1 tab PO DAILY [facility] Last Admin: 03/01/17 09:40 Dose: 1 tab Lorazepam (Ativan) 0.5 mg SLOW IVP HSPRN PRN PRN Reason: . Last Admin: 02/28/17 15:45 Dose: 0.5 mg Metoprolol Tartrate (Lopressor) 5 mg IVP 0400,1000,1600,2200 [facility] Last Admin: 03/01/17 11:27 Dose: 5 mg Mineral Oil/White Petrolatum (Eucerin Cream) 0 gm TOP PRN PRN PRN Reason: Itching Naloxone HCl (Narcan) 0.2 mg IV Q5MIN PRN PRN Reason: RR <=8 OR OBTUNDED/UNAROUSABLE Naloxone HCl (Narcan) 0.1 mg IVP Q15MIN PRN PRN Reason: URINARY RETENTION Ondansetron HCl (Zofran) 4 mg IVP Q6H PRN PRN Reason: Nausea/Vomiting Last Admin: 02/28/17 23:15 Dose: 4 mg Pramipexole Dihydrochloride (Mirapex) 2 mg PO 1500 [facility] Last Admin: 02/28/17 15:44 Dose: 2 mg Pramipexole Dihydrochloride (Mirapex) 2 mg PO HS [facility] Last Admin: 02/28/17 21:53 Dose: 2 mg Promethazine HCl (Phenergan) 12.5 mg IM Q4H PRN PRN Reason: Nausea/Vomiting Promethazine HCl (Phenergan Suppository) 25 mg [place] Q4H PRN PRN Reason: Nausea/Vomiting Senna/Docusate Sodium (Senokot S) 2 tab PO BID [facility] Last Admin: 03/01/17 09:41 Dose: 2 tab Sodium Chloride (Flush - Normal Saline) 10 ml IVF PRN PRN PRN Reason: Saline Flush Last Admin: 02/27/17 22:42 Dose: 10 ml Tramadol HCl (Ultram) 50 mg PO Q4H [facility] Last Admin: 03/01/17 13:21 Dose: 50 mg Zolpidem Tartrate (Ambien) 5 mg PO HSPRN PRN PRN Reason: Insomnia Last Admin: 02/22/17 21:08 Dose: 5 mg
[2017-03-01] MEDS: Pramipexole Di-HCl 1 MG TAB PO SCH ×2 (15:42→20:24)
[2017-03-01] MEDS: Atorvastatin Calcium 10 MG TAB PO SCH (20:23)
[2017-03-02] MEDS: Meropenem 1 GM in Sterile Water 20 ML SLOW IVP SCH ×3 (01:57→20:57)
[2017-03-02] MEDS: traMADol HCl 50 MG TAB PO SCH ×6 (04:57→20:59)
[2017-03-02] MEDS: Acetaminophen 325 MG TAB PO PRN ×2 (04:58→09:02)
[2017-03-02 05:24] LABS: Anion Gap 12 mmol/L (10-20); BUN (Urea Nitrogen) 20 mg/dL (9.8-20.1); Calc. Creatinine Clearance 95 mL/min (70-130); Calcium 8.4 mg/dL (7.8-10.44); Carbon Dioxide 32 mmol/L (23-31); Chloride 100 mmol/L (98-107); Estimated GFR-MDRD Greater than 90; Glucose 129 mg/dL (83-110); Potassium 3.8 mmol/L (3.5-5.1); Sodium 140 mmol/L (136-145)
[2017-03-02] MEDS: Carbidopa/Levodopa 25-100 mg Tablet PO SCH ×5 (06:04→20:59)
[2017-03-02] MEDS: Metoprolol Tartrate 5 MG/5 ML VIAL IVP SCH ×2 (06:05→20:25)
[2017-03-02 06:12] LABS: Hemoglobin 10.2 g/dL (12.0-16.0); Mean Corpuscular HGB CONC 30.8 g/dL (32.0-36.0); Mean Corpuscular Hemoglobin 29.6 pg (27.0-31.0); Mean Corpuscular Volume 96.1 fl (81.0-99.0); Mean Platelet Volume 7.2 fL (7.4-10.4); Platelet Count 350 thou/uL (130-400); RBC Distribution Width 13.7 % (11.5-14.5); Red Blood Cell (RBC) Count 3.45 mill/uL (4.20-5.40); White Blood Cell (WBC) Count 7.9 thou/uL (4.8-10.8)
[2017-03-02] MEDS: Diabetic Tussin 200 MG/10 ML UDCUP PO PRN ×2 (06:25→16:34)
[2017-03-02] MEDS: 1/2 NS w/KCL 20 mEq 1,000 ML IV SCH (07:30)
[2017-03-02] MEDS: Multivitamin W/ Minerals 1 TAB PO SCH (08:55)
[2017-03-02] MEDS: Fludrocortisone Acetate 0.1 MG TAB PO SCH (08:55)
[2017-03-02] MEDS: Aspirin 325 MG TAB PO SCH ×2 (08:57→20:58)
[2017-03-02] MEDS: Senokot S 8.6-50 MG TAB PO SCH ×2 (08:58→20:58)
[2017-03-02] MEDS: Ferrous Gluconate 324 MG TAB PO SCH ×2 (08:58→17:16)
[2017-03-02 09:30] VITALS: BMI 24.0
[2017-03-02] MEDS ORDERED: Metoprolol Tartrate 50 MG TAB PO SCH (10:45)
--- NOTE | 2017-03-02 14:34 | PDOC.PN ---
- Subjective Encounter Start Date: 03/02/17 Encounter Start Time: 14:32 Subjective: pt awake but falls asleep quickly -: care discussed w family - Objective Resuscitation Status: Resuscitation Status FULL:Full Resuscitation MAR Reviewed: Yes Vital Signs & Weight: Vital Signs (12 hours) Temp Pulse Pulse Resp BP BP Pulse Ox 03/02/17 11:25 96.4 F L 70 18 142/63 H 100 03/02/17 11:05 72 123/74 03/02/17 08:00 97.5 F L 78 18 141/87 H 98 03/02/17 04:00 97.2 F L 65 20 141/63 H 99 Weight Admit Weight 106 lb Weight 140 lb Most Recent Monitor Data Heart Rate from ECG 99 NIBP 157/73 NIBP BP-Mean 98 Respiration from ECG 11 SpO2 98 I&O: 03/01/17 03/02/17 03/03/17 06:59 06:59 06:59 Intake Total 920 2416 Output Total 1800 1275 Balance -880 1141 Result Diagrams: 03/02/17 05:59 03/02/17 04:35 Additional Labs: Accuchecks 03/02/17 03/02/17 03/01/17 10:25 05:38 19:49 POC Glucose 190 H 143 H 167 H 03/01/17 17:07 POC Glucose 185 H Microbiology 02/19/17 15:30 Urine serrano catheter Urine Culture - Final NO GROWTH AT 36 HOURS 02/28/17 16:15 Urine serrano catheter Urine Culture - Final NO GROWTH AT 48 HOURS Phys Exam - Physical Examination Constitutional: NAD Dobhoff in place.pt pulling on it HEENT: PERRLA, moist MMs, sclera anicteric, oral pharynx no lesions Neck: no JVD, supple Respiratory: no wheezing, no rales, no rhonchi, clear to auscultation bilateral Cardiovascular: RRR, no significant murmur Gastrointestinal: soft, non-tender, no distention, positive bowel sounds Musculoskeletal: no edema, pulses present Neurological: moves all 4 limbs Psychiatric: normal affect Dx/Plan (1) PNA (pneumonia) Code(s): J18.9 - PNEUMONIA, UNSPECIFIED ORGANISM Status: Acute Qualifiers: Pneumonia type: aspiration pneumonia Laterality: bilateral (2) Hypomagnesemia Code(s): E83.42 - HYPOMAGNESEMIA Status: Resolved (3) Hypokalemia Code(s): E87.6 - HYPOKALEMIA Status: Resolved (4) Hip fracture requiring operative repair Code(s): S72.009A - FRACTURE OF UNSP PART OF NECK OF UNSP FEMUR, INIT Status: Acute Qualifiers: Laterality: right Comment: s/p Hip arthroplasty 02/20/17 (5) Ischemic cardiomyopathy Code(s): I25.5 - ISCHEMIC CARDIOMYOPATHY Status: Chronic Comment: Ef per recent ECHO improved to 50-55% (6) CAD (coronary artery disease) Code(s): I25.10 - ATHSCL HEART DISEASE OF [place] CORONARY ARTERY W/O ANG PCTRS Status: Chronic (7) Diabetes mellitus type 2 in nonobese Code(s): E11.9 - TYPE 2 DIABETES MELLITUS WITHOUT COMPLICATIONS Status: Chronic Comment: iss (8) Parkinsons disease Code(s): G20 - PARKINSON'S DISEASE Status: Chronic (9) Protein-calorie malnutrition, mild Code(s): E44.1 - MILD PROTEIN-CALORIE MALNUTRITION Status: Chronic (10) Chronic combined systolic and diastolic CHF (congestive heart failure) Code(s): I50.42 - CHRONIC COMBINED SYSTOLIC AND DIASTOLIC HRT FAIL Status: Acute (11) Fluid overload Code(s): E87.70 - FLUID OVERLOAD, UNSPECIFIED Status: Resolved - Plan plan discussed w/ family, PT/OT, respiratory therapy, incentive spirometry, out of bed/ambulate, DVT proph w/SCDs Dobhoff continued on family insistance.educated it is temporary. -: Educated to think about either PEG Vs pleasure feeds for DC -: cont meropenam.OK to DC on PO ABx-likley augmentin for 7 days. -: recommend stopping TF tomorrow and DC home w HH if family agrees -: OK to DC form IM stand point.Lytes normalized on IVF * . Review of Systems - Review of Systems Other: unobtainable due to dementia - Medications/Allergies Allergies/Adverse Reactions: Allergies Allergy/AdvReac Type Severity Reaction Status Date / Time benzonatate Allergy Verified 01/06/17 15:11 [From Marge Dueñas] iodine Allergy Verified 01/06/17 15:11 Penicillins Allergy Verified 01/06/17 15:11 red dye Allergy Verified 01/06/17 15:11 adhesives Allergy Uncoded 01/06/17 15:39 Medications: Current Medications Acetaminophen (Tylenol) 650 mg PO Q4H PRN PRN Reason: DAMIAN/ T > 101F; Mild Pain (1-3) Last Admin: 03/02/17 09:02 Dose: 650 mg Acetaminophen (Tylenol) 650 mg MD Q4H PRN PRN Reason: Pain 1-3 Last Admin: 02/28/17 15:50 Dose: 650 mg Aspirin (Aspirin) 325 mg PO BID [facility] Last Admin: 03/02/17 08:57 Dose: 325 mg Atorvastatin Calcium (Lipitor) 10 mg PO HS [facility] Last Admin: 03/01/17 20:23 Dose: 10 mg Bisacodyl (Dulcolax) 10 mg MD DAILYPRN PRN PRN Reason: Constipation Last Admin: 02/23/17 12:11 Dose: 10 mg Carbidopa/Levodopa (Sinemet 25-100) 2 tab PO 0600,1100,1500,1800 [facility] Last Admin: 03/02/17 10:43 Dose: 2 tab Carbidopa/Levodopa (Sinemet 25-100) 2 tab PO 2100 [facility] Last Admin: 03/01/17 20:24 Dose: 2 tab Dextrose/Water (Dextrose 50%) 25 gm SLOW IVP PRN PRN PRN Reason: Hypoglycemia Ferrous Gluconate (Fergon) 324 mg PO BID[facility] [place] Last Admin: 03/02/17 08:58 Dose: 324 mg Fludrocortisone Acetate (Florinef) 0.1 mg PO QAM [facility] Last Admin: 03/02/17 08:55 Dose: 0.1 mg Glucagon (Glucagon) 1 mg IM PRN PRN PRN Reason: Hypoglycemia Guaifenesin (Robitussin Sf) 400 mg PO Q6H PRN PRN Reason: Cough Last Admin: 03/02/17 06:25 Dose: 400 mg Hydralazine HCl (Apresoline) 10 mg SLOW IVP Q6H PRN PRN Reason: SBP Greater Than 180 Dextrose/Water (D5w) 1,000 mls @ 0 mls/hr IV .Q0M PRN; As Directed PRN Reason: Hypoglycemia Meropenem 1 gm/ Sterile Water 20 mls @ 240 mls/hr SLOW IVP 0100,0900,1700 [facility] Last Admin: 03/02/17 08:59 Dose: 20 mls Potassium Chloride/Sodium Chloride (1/2 Ns W/Kcl 20 Meq) 1,000 mls @ 75 mls/hr IV .[id number] [facility] Last Admin: 03/02/17 07:30 Dose: 1,000 mls Insulin Human Lispro (Humalog) 0 units SC .MILD SLIDING SCALE PRN PRN Reason: Mild Correctional Scale Insulin Human Lispro (Humalog) 0 units SC .BEDTIME SLIDING SC PRN PRN Reason: Bedtime Correctional Scale Iron/Minerals/Multivitamins (Theragran M) 1 tab PO DAILY [facility] Last Admin: 03/02/17 08:55 Dose: 1 tab Lorazepam (Ativan) 0.5 mg SLOW IVP HSPRN PRN PRN Reason: . Last Admin: 02/28/17 15:45 Dose: 0.5 mg Metoprolol Tartrate (Lopressor) 50 mg PER TUBE BID [facility] Mineral Oil/White Petrolatum (Eucerin Cream) 0 gm TOP PRN PRN PRN Reason: Itching Ondansetron HCl (Zofran) 4 mg IVP Q6H PRN PRN Reason: Nausea/Vomiting Last Admin: 02/28/17 23:15 Dose: 4 mg Pramipexole Dihydrochloride (Mirapex) 2 mg PO 1500 [facility] Last Admin: 03/01/17 15:42 Dose: 2 mg Pramipexole Dihydrochloride (Mirapex) 2 mg PO HS [facility] Last Admin: 03/01/17 20:24 Dose: 2 mg Promethazine HCl (Phenergan) 12.5 mg IM Q4H PRN PRN Reason: Nausea/Vomiting Promethazine HCl (Phenergan Suppository) 25 mg MD Q4H PRN PRN Reason: Nausea/Vomiting Senna/Docusate Sodium (Senokot S) 2 tab PO BID [facility] Last Admin: 03/02/17 08:58 Dose: 2 tab Sodium Chloride (Flush - Normal Saline) 10 ml IVF PRN PRN PRN Reason: Saline Flush Last Admin: 03/01/17 21:59 Dose: 10 ml Tramadol HCl (Ultram) 50 mg PO 0200,0600,1000 [facility] Last Admin: 03/02/17 10:45 Dose: 50 mg Tramadol HCl (Ultram) 50 mg PO 1400,1800,2200 [facility] Last Admin: 03/01/17 21:36 Dose: 50 mg Zolpidem Tartrate (Ambien) 5 mg PO HSPRN PRN PRN Reason: Insomnia Last Admin: 02/22/17 21:08 Dose: 5 mg
[2017-03-02] MEDS: Pramipexole Di-HCl 1 MG TAB PO SCH ×2 (14:50→21:17)
[2017-03-02] MEDS: Atorvastatin Calcium 10 MG TAB PO SCH (20:58)
[2017-03-02] MEDS: Metoprolol Tartrate 50 MG TAB PER TUBE SCH (20:58)
[2017-03-02] MEDS ORDERED: Lorazepam 0.5 MG TAB PER TUBE SCH (21:15)
[2017-03-03] MEDS: traMADol HCl 50 MG TAB PO SCH ×5 (01:28→18:21)
[2017-03-03] MEDS: Meropenem 1 GM in Sterile Water 20 ML SLOW IVP SCH ×3 (01:28→17:11)
[2017-03-03] MEDS: 1/2 NS w/KCL 20 mEq 1,000 ML IV SCH (01:45)
[2017-03-03 05:20] LABS: Hemoglobin 9.2 g/dL (12.0-16.0); Mean Corpuscular HGB CONC 31.3 g/dL (32.0-36.0); Mean Corpuscular Hemoglobin 29.7 pg (27.0-31.0); Mean Corpuscular Volume 95.1 fl (81.0-99.0); Mean Platelet Volume 8.2 fL (7.4-10.4); Platelet Count 275 thou/uL (130-400); RBC Distribution Width 13.9 % (11.5-14.5); Red Blood Cell (RBC) Count 3.07 mill/uL (4.20-5.40); White Blood Cell (WBC) Count 10.9 thou/uL (4.8-10.8)
[2017-03-03] MEDS: Carbidopa/Levodopa 25-100 mg Tablet PO SCH ×4 (05:31→18:21)
[2017-03-03 05:43] LABS: Anion Gap 13 mmol/L (10-20); BUN (Urea Nitrogen) 16 mg/dL (9.8-20.1); Calc. Creatinine Clearance 96 mL/min (70-130); Calcium 8.5 mg/dL (7.8-10.44); Carbon Dioxide 28 mmol/L (23-31); Chloride 97 mmol/L (98-107); Estimated GFR-MDRD Greater than 90; Glucose 135 mg/dL (83-110); Potassium 3.8 mmol/L (3.5-5.1); Sodium 134 mmol/L (136-145)
[2017-03-03] MEDS: Fludrocortisone Acetate 0.1 MG TAB PO SCH (09:33)
[2017-03-03] MEDS: Ferrous Gluconate 324 MG TAB PO SCH ×2 (09:33→16:55)
[2017-03-03] MEDS: Senokot S 8.6-50 MG TAB PO SCH (09:33)
[2017-03-03] MEDS: Aspirin 325 MG TAB PO SCH (09:33)
[2017-03-03] MEDS: Multivitamin W/ Minerals 1 TAB PO SCH (09:34)
[2017-03-03] MEDS: Metoprolol Tartrate 50 MG TAB PER TUBE SCH (09:34)
[2017-03-03 12:26] VITALS: TEMP 97.1
[2017-03-03] MEDS: Pramipexole Di-HCl 1 MG TAB PO SCH (14:38)
[2017-03-03 17:02] VITALS: BP 173/74
--- NOTE | 2017-03-04 15:37 | DIS ---
DATE OF ADMISSION: 02/18/2017 DATE OF DISCHARGE: 03/03/2017 PREOPERATIVE DIAGNOSES: 1. Dislocated right hip hemiarthroplasty. 2. 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 POSTOPERATIVE DIAGNOSES: 1. Dislocated right hip hemiarthroplasty. 2. 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 PROCEDURES: 1. On 02/18/2017, the patient underwent a closed reduction of right hip by Dr. Quan Scott. 2. Completed on 02/20/[address] Augie Broussard. The patient underwent conversion of previous hip arndt rgery, total hip arthroplasty and abductor tenotomy. HOSPITAL STAY: The patient struggled with some confusion. She had some medical issues that were helen en care of by our [facility]. By 01/31/2018, the patient was ready to discharge with family to [facility]. DISCHARGE CONDITION: Good/stable. DISPOSITION: Home. FOLLOWUP: Followup would be in 10-14 days, sooner if there are problems or concerns. DISCHARGE MEDICATIONS: Given with usage instructions. This is Hamilton Rangel PA-C dictating for Dr. Augie Broussard and Dr. Quan Scott.
--- NOTE | 2017-03-05 19:31 | EKG ---
Test Reason : Blood Pressure : / mmHG Vent. Rate : 155 BPM Atrial Rate : 153 BPM P-R Int : 000 ms QRS Dur : 080 ms QT Int : 316 ms P-R-T Axes : 000 070 -25 degrees QTc Int : 507 ms Atrial fibrillation with rapid ventricular response Abnormal ECG When compared with ECG of 20-FEB-2017 16:38, Atrial fibrillation has replaced Sinus rhythm Vent. rate has increased BY [address] now depressed in Inferior leads ST now depressed in Anterior leads T wave inversion now evident in Inferior leads Confirmed by CANDICE KOO (2) on 03/05/2017 7:30:45 PM Referred By: HAYES Confirmed By:CANDICE KOO
== END 2017-03-03 19:00 | disposition home health service (06) | DRG 466 ==
LOC: ERS 10:32 → SURG B 12:40 → 2NO 02-20 21:27 → CCU 02-21 14:05 → SURG B 02-22 18:30 → 2NO 02-25 11:38
PROVIDERS: ADMIT Orthopaedic Surgery; ATTEND Orthopaedic Surgery
PROC: 0SW9XJZ Revision of Synthetic Substitute in Right Hip Joint, External Approach (ICD-10-PCS; 2017-02-18)
PROC: 0SR90JA Replacement of Right Hip Joint with Synthetic Substitute, Uncemented, Open Approach (ICD-10-PCS; principal; 2017-02-20)
PROC: 0SP90JZ Removal of Synthetic Substitute from Right Hip Joint, Open Approach (ICD-10-PCS; 2017-02-20)
DX: T84.020A Dislocation of internal right hip prosthesis, initial encounter (principal); J69.0 Pneumonitis due to inhalation of food and vomit; I50.43 Acute on chronic combined systolic (congestive) and diastolic (congestive) heart failure; I24.8 Other forms of acute ischemic heart disease; E83.42 Hypomagnesemia; E44.1 Mild protein-calorie malnutrition; G20 Parkinson's disease; Y83.1 Surgical operation with implant of artificial internal device as the cause of abnormal reaction of the patient, or of later complication, without mention of misadventure at the time of the procedure; I10 Essential (primary) hypertension; F41.9 Anxiety disorder, unspecified; F32.9 Major depressive disorder, single episode, unspecified; Z68.24 Body mass index [BMI] 24.0-24.9, adult; I25.10 Atherosclerotic heart disease of native coronary artery without angina pectoris; I48.0 Paroxysmal atrial fibrillation; E87.6 Hypokalemia; I25.5 Ischemic cardiomyopathy; Z88.0 Allergy status to penicillin; Z88.8 Allergy status to other drugs, medicaments and biological substances; Z91.048 Other nonmedicinal substance allergy status; Z79.82 Long term (current) use of aspirin; Z79.899 Other long term (current) drug therapy
CPT/HCPCS: 36415; 36416; 51702; 71045; 74018; 76000; 80048; 80053; 81003; 81015; 82553; 83735; 83880; 84132; 84484; 85025; 85027; 85610; 85730; 86850; 86900; 86901; 87086; 93005; 93010; 93306; 96361; 96374; 96376; 99155; A4216; C1713; C1776; G8978-GP-CM; G8979-GP-CL; G8987-GO-CN; G8988-GO-CN; G8989-GO-CN; G8996-GN-CM; G8997-GN-CK; J0131; J1200; J1885; J1940; J1956; J2001; J2060; J2185; J2250; J2270; J2405; J2704; J3010; J3370; J3475; J3480; J3490; J7050; S0020

== ENCOUNTER 2017-10-06 13:57 | Emergency (ER) | payer MEDICARE ==
--- NOTE | 2017-10-06 15:11 | RAD ---
RADIOGRAPH RIGHT KNEE FOUR VIEWS: Date: 10-06-17 History: 77-year-old female status post trauma to the right knee due to fall several days ago. Persistent post -traumatic pain. FINDINGS: No fracture or dislocation. Joint spaces are maintained without erosions or osteophytes. Nonspecific diffuse mixed sclerotic and lucent changes throughout the proximal tibial and fibular metaphyses and proximal diaphyses. Nonspecific cortical thickening of proximal fibular diaphysis. Atherosclerotic ca lcification of distal superficial femoral artery, popliteal artery, and branches of the popliteal art ryne. Enthesophyte at anterior superior pole of patella at quadriceps tendon attachment site. No evide nce of joint effusions. IMPRESSION: 1. No fracture. 2. Atherosclerosis. 3. Nonspecific mixed sclerotic and lucent changes of tibial and fibular shafts, of uncertain etiology . POS: [facility]
--- NOTE | 2017-10-06 15:23 | RAD ---
RADIOGRAPH PELVIS 1 VIEW: DATE: 10/06/17. HISTORY: A 77-year-old female with persistent traumatic right hip and pelvic pain after a fall several days ag o. FINDINGS: There are bilateral metallic hip replacement prostheses. On the right side, there are screws attachi ng the acetabular cup to the bone. No dislocation. No gross disruption of pelvic ring. High-grade degenerative disk disease in the lower lumbar spine. Osteopenia. IMPRESSION: 1. No acute fracture, and no dislocation identified. 2. High-grade lower lumbar spondylosis. 3. Status post bilateral hip replacement arthroplasty. POS: [facility]
== END 2017-10-06 15:31 | disposition home or self-care (01) ==
LOC: ERS 13:57
DX: S70.11XA Contusion of right thigh, initial encounter (principal); E11.9 Type 2 diabetes mellitus without complications; F41.9 Anxiety disorder, unspecified; I25.2 Old myocardial infarction; I50.9 Heart failure, unspecified; Z79.899 Other long term (current) drug therapy; W18.30XA Fall on same level, unspecified, initial encounter
CPT/HCPCS: 72170

== ENCOUNTER 2018-01-11 20:54 | Emergency (ER) | payer MEDICARE ==
--- NOTE | 2018-01-11 22:27 | CT ---
CT HEAD WITHOUT CONTRAST: Technique: Multiple contiguous axial images were obtained through the head without IV enhancement. Indications: Fall with injury to head. FINDINGS: Motion artifact. Mild cortical volume loss. Mild chronic ischemic change. No evidence of hemorrhage o r mass. No infarct apparent. Sinuses and mastoids appear clear. IMPRESSION: No acute finding. POS: [facility]
--- NOTE | 2018-01-11 23:04 | CT ---
CT CERVICAL SPINE: Technique: Multiple contiguous axial images were obtained through the cervical spine with multiplanar reconstruction. Indications: Fall with injury to neck and face. FINDINGS: Prominent degenerative changes of the cervical spine noted. Loss of disc space with hypertrophic fajardo ges seen in the mid cervical spine. Osteopenia. Cystic change seen in the C5 and C6 vertebra. There i s no evidence of acute fracture. IMPRESSION: Moderate degenerative changes of the cervical spine. No acute fracture identified. POS: [facility]
--- NOTE | 2018-01-11 23:08 | CT ---
CT FACIAL BONES: Technique: Multiple contiguous axial images were obtained through facial bones with multiplanar recon struction. History: Fall with injury to face. FINDINGS: Nasal bones appear intact. Orbits appear intact. Lamina papyracea intact. Zygoma intact. Paranasal sinuses are well aerated and clear. Maxilla appears intact. Mandible appears intact. IMPRESSION: No evidence of facial bone fractures. POS: [facility]
== END 2018-01-11 22:38 | disposition home or self-care (01) ==
LOC: ERS 20:54
DX: S00.83XA Contusion of other part of head, initial encounter (principal); E11.9 Type 2 diabetes mellitus without complications; I25.2 Old myocardial infarction; I50.9 Heart failure, unspecified; G20 Parkinson's disease; F41.9 Anxiety disorder, unspecified; Z79.82 Long term (current) use of aspirin; Z79.899 Other long term (current) drug therapy; W01.198A Fall on same level from slipping, tripping and stumbling with subsequent striking against other object, initial encounter
CPT/HCPCS: 70450; 70486; 72125

== ENCOUNTER 2023-09-18 13:16 | Emergency (ER) | payer MEDICARE, OTHER ==
[2023-09-18 14:19] LABS: #Basophils Less than 0.03 10x3/uL (0.0-0.2); %Basophils 0.3 % (0.0-1.0); %Eosinophils 7.2 % (0.0-10.0); %Lymphocytes 17.6 % (21.0-51.0); %Monocytes 7.7 % (0.0-10.0); Hematocrit 38.7 % (36.0-47.0); Hemoglobin 12.5 g/dL (12.0-16.0); Mean Corpuscular HGB CONC 32.3 g/dL (32.0-36.0); Mean Corpuscular Hemoglobin 31.6 pg (27.0-31.0); Mean Platelet Volume 10.7 fL (7.4-10.4); Platelet Count 166 10x3/uL (130-400); RBC Distribution Width 12.5 % (11.5-14.5); Red Blood Cell (RBC) Count 3.95 mill/uL (4.20-5.40)
[2023-09-18 14:43] LABS: ALT (SGPT) Less than 5 U/L (8-55); AST (SGOT) 13 U/L (5-34); Albumin 3.5 g/dL (3.4-4.8); Alkaline Phosphatase 78 U/L (40-110); Anion Gap 14 mmol/L (10-20); BUN (Urea Nitrogen) 20 mg/dL (9.8-20.1); Bilirubin, Total 0.8 mg/dL (0.2-1.2); Calc. Creatinine Clearance 0 mL/min (70-130); Calcium 9.2 mg/dL (7.8-10.44); Carbon Dioxide 26 mmol/L (23-31); Chloride 103 mmol/L (98-107); Estimated GFR 72; Globulin 2.6 g/dL (2.4-3.5); Glucose 240 mg/dL (83-110); Potassium 4.6 mmol/L (3.5-5.1); Protein, Total 6.1 g/dL (5.8-8.1); Sodium 138 mmol/L (136-145)
[2023-09-18 15:45] LABS: Bacteria/HPF None Seen HPF (None Seen); Bilirubin Negative (Negative); Blood, Urine Negative (Negative); CAUTI Indications for Culture Pelvic or flank pain; Clarity Clear (Clear); Glucose, Urine (Dipstick) 50 mg/dL (Negative); Ketone, Urine Negative (Negative); Leukocyte 75 Leu/uL (Negative); Nitrite Negative (Negative); Protein, Urine (Dipstick) Negative (Neg-Trace); RBC/HPF 0-3 HPF (0-3); Specific Gravity, Urine 1.017 (1.002-1.036); Squamous Epithelial 0-3 HPF (0-3); Urobilinogen Normal mg/dL (Less than 2); pH, Urine 5.5 (5.0-9.0)
[2023-09-18 15:51] LABS: Urine Culture Reflex No No
[2023-09-18] MEDS ORDERED: cefTRIAXone (ROCEPHIN) 1 GM VIAL ONE (17:02)
[2023-09-18 17:26] LABS: Lactic Acid 2.2 mmol/L (0.5-2.2)
== END 2023-09-18 18:24 | disposition home or self-care (01) ==
LOC: ERS 13:16
DX: N39.0 Urinary tract infection, site not specified (principal); E11.9 Type 2 diabetes mellitus without complications; I50.9 Heart failure, unspecified
CPT/HCPCS: 80053; 81001; 83605; 85025; 87040; 93005; J0696; 36415

== ENCOUNTER 2023-11-09 13:28 | Inpatient (IN) | payer MEDICARE, MEDICAID ==
[2023-11-09 14:18] LABS: #Basophils 0.04 10x3/uL (0.0-0.2); %Basophils 0.8 % (0.0-1.0); %Eosinophils 10.5 % (0.0-10.0); %Lymphocytes 23.8 % (21.0-51.0); %Monocytes 8.3 % (0.0-10.0); %Neutrophils 56.4 % (42.0-75.0); Hematocrit 40.1 % (36.0-47.0); Hemoglobin 13.2 g/dL (12.0-16.0); Mean Corpuscular HGB CONC 32.9 g/dL (32.0-36.0); Mean Corpuscular Hemoglobin 30.6 pg (27.0-31.0); Mean Corpuscular Volume 92.8 fL (78.0-98.0); Mean Platelet Volume 10.7 fL (7.4-10.4); Platelet Count 195 10x3/uL (130-400); RBC Distribution Width 12.8 % (11.5-14.5); Red Blood Cell (RBC) Count 4.32 mill/uL (4.20-5.40)
[2023-11-09 14:32] LABS: ALT (SGPT) Less than 5 U/L (8-55); AST (SGOT) 19 U/L (5-34); Albumin 3.8 g/dL (3.4-4.8); Alkaline Phosphatase 90 U/L (40-110); Anion Gap 17 mmol/L (10-20); BUN (Urea Nitrogen) 23 mg/dL (9.8-20.1); Bilirubin, Total 0.6 mg/dL (0.2-1.2); Calc. Creatinine Clearance 0 mL/min (70-130); Calcium 9.2 mg/dL (7.8-10.44); Carbon Dioxide 26 mmol/L (23-31); Chloride 103 mmol/L (98-107); Estimated GFR 76; Globulin 3.2 g/dL (2.4-3.5); Glucose 175 mg/dL (83-110); Potassium 4.5 mmol/L (3.5-5.1); Sodium 141 mmol/L (136-145)
[2023-11-09 14:37] LABS: Troponin I 0.015 ng/mL (< 0.028)
[2023-11-09 15:52] LABS: Bacteria/HPF None Seen HPF (None Seen); Bilirubin Negative (Negative); Blood, Urine Trace (Negative); CAUTI Indications for Culture Alt mental st,lethar; Clarity Clear (Clear); Glucose, Urine (Dipstick) Normal (Negative); Ketone, Urine Negative (Negative); Leukocyte Negative Leu/uL (Negative); Nitrite Negative (Negative); Protein, Urine (Dipstick) Negative (Neg-Trace); RBC/HPF 0-3 HPF (0-3); Specific Gravity, Urine 1.014 (1.002-1.036); Squamous Epithelial 0-3 HPF (0-3); Urobilinogen Normal mg/dL (Less than 2); WBC/HPF 0-3 HPF (0-3); pH, Urine 6.5 (5.0-9.0)
[2023-11-09 15:57] LABS: Urine Culture Reflex No No
[2023-11-09 16:40] LABS: Actual Bicarbonate (HCO3v) 27.7 mEq/L (22-28); Analyzer IN Cardio ER; Base Excess -2.1 mEq/L (-2.0 to +3.0); Calcium, Ionized (venous) 1.22 mmol/L (1.16-1.32); Chloride (VBG) 100 mmol/L (98-106); Hematocrit-VBG 59 % (36.0-47.0); Potassium (VBG) 4.19 mmol/L (3.70-5.30); Sodium 142 mmol/L (133-146)
[2023-11-09 16:55] LABS: pH (venous) 7.242 (7.32-7.43)
[2023-11-09 16:59] LABS: Lactic Acid 2.42 mmol/L (0.5-2.2)
[2023-11-09] MEDS ORDERED: Acetaminophen 325 MG TAB PO PRN (18:46)
[2023-11-09 22:50] LABS: Base Excess -3.2 mEq/L (-2.0 to +3.0); Calcium, Ionized (venous) 1.13 mmol/L (1.16-1.32); Chloride (VBG) 104 mmol/L (98-106); Hematocrit-VBG 38 % (36.0-47.0); Hemoglobin (Hb) 12.9 g/dL (11.7-16.1); Potassium (VBG) 4.19 mmol/L (3.70-5.30); Sodium 140 mmol/L (133-146); pH (venous) 7.283 (7.32-7.43)
[2023-11-10] MEDS ORDERED: Albuterol 2.5 MG (3 mL) NEB NEB PRN (00:37)
[2023-11-10 01:05] VITALS: BMI 27.3
[2023-11-10] MEDS: Cefepime 2 GM in Sodium Chloride 0.9% 100 ML IVPB SCH (02:26)
[2023-11-10] MEDS: methylPREDNISolone Sod Succ 40 MG VIAL IVP SCH ×2 (02:27→02:40)
[2023-11-10 04:19] LABS: #Basophils 0.05 10x3/uL (0.0-0.2); %Basophils 0.6 % (0.0-1.0); %Eosinophils 3.7 % (0.0-10.0); %Lymphocytes 13.5 % (21.0-51.0); %Monocytes 5.1 % (0.0-10.0); %Neutrophils 76.9 % (42.0-75.0); Hematocrit 37.9 % (36.0-47.0); Hemoglobin 12.2 g/dL (12.0-16.0); Mean Corpuscular HGB CONC 32.2 g/dL (32.0-36.0); Mean Corpuscular Hemoglobin 31.1 pg (27.0-31.0); Mean Corpuscular Volume 96.7 fL (78.0-98.0); Mean Platelet Volume 10.5 fL (7.4-10.4); Platelet Count 193 10x3/uL (130-400); RBC Distribution Width 12.7 % (11.5-14.5); Red Blood Cell (RBC) Count 3.92 mill/uL (4.20-5.40)
[2023-11-10 04:37] LABS: Anion Gap 14 mmol/L (10-20); BUN (Urea Nitrogen) 18 mg/dL (9.8-20.1); Calc. Creatinine Clearance 74 mL/min (70-130); Calcium 8.7 mg/dL (7.8-10.44); Carbon Dioxide 20 mmol/L (23-31); Chloride 108 mmol/L (98-107); Estimated GFR 88; Glucose 169 mg/dL (83-110); Potassium 4.2 mmol/L (3.5-5.1); Sodium 138 mmol/L (136-145)
[2023-11-10] MEDS: Ipratropium/Albuterol 3 ML NEB NEB SCH (08:10)
[2023-11-10] MEDS: Budesonide 0.25 MG/2 ML NEB INH SCH (08:14)
[2023-11-10] MEDS: Doxycycline 100 MG in Sodium Chloride 0.9% 100 ML IVPB SCH (09:23)
[2023-11-10] MEDS: Enoxaparin 40 MG (0.4 mL) SYRINGE SC SCH (09:23)
[2023-11-10 09:25] LABS: Actual Bicarbonate (HCO3v) 24.1 mEq/L (22-28); Base Excess -0.8 mEq/L (-2.0 to +3.0); Calcium, Ionized (venous) 1.16 mmol/L (1.16-1.32); Chloride (VBG) 103 mmol/L (98-106); Hematocrit-VBG 43 % (36.0-47.0); Hemoglobin (Hb) 14.6 g/dL (11.7-16.1); Potassium (VBG) 4.47 mmol/L (3.70-5.30); Sodium 139 mmol/L (133-146); pH (venous) 7.388 (7.32-7.43)
[2023-11-10] MEDS: Carbidopa/Levodopa 25-100 mg Tablet PO SCH (12:22)
[2023-11-10] MEDS: Pramipexole Di-HCl 1 MG TAB PO SCH (14:50)
[2023-11-10] MEDS: Arformoterol 15 MCG/2 ML NEB NEB SCH (19:21)
[2023-11-10] MEDS ORDERED: methylPREDNISolone Sod Succ 40 MG VIAL IVP SCH (23:59)
[2023-11-11 05:05] LABS: #Basophils Less than 0.03 10x3/uL (0.0-0.2); %Basophils 0.3 % (0.0-1.0); %Eosinophils 1.5 % (0.0-10.0); %Lymphocytes 18.7 % (21.0-51.0); %Monocytes 8.5 % (0.0-10.0); %Neutrophils 70.8 % (42.0-75.0); Hematocrit 36.8 % (36.0-47.0); Mean Corpuscular HGB CONC 32.6 g/dL (32.0-36.0); Mean Corpuscular Hemoglobin 30.5 pg (27.0-31.0); Mean Corpuscular Volume 93.4 fL (78.0-98.0); Mean Platelet Volume 10.9 fL (7.4-10.4); Platelet Count 202 10x3/uL (130-400); RBC Distribution Width 12.9 % (11.5-14.5); Red Blood Cell (RBC) Count 3.94 mill/uL (4.20-5.40)
[2023-11-11 05:16] LABS: Anion Gap 14 mmol/L (10-20); BUN (Urea Nitrogen) 20 mg/dL (9.8-20.1); Calc. Creatinine Clearance 63 mL/min (70-130); Carbon Dioxide 22 mmol/L (23-31); Chloride 107 mmol/L (98-107); Estimated GFR 82; Glucose 165 mg/dL (83-110); Potassium 4.2 mmol/L (3.5-5.1); Sodium 139 mmol/L (136-145)
[2023-11-11] MEDS: predniSONE 20 MG TAB PO SCH (08:59)
[2023-11-11] MEDS: Doxycycline 100 MG CAP PO SCH (08:59)
[2023-11-11] MEDS ORDERED: Arformoterol 15 MCG/2 ML NEB NEB PRN (11:22)
[2023-11-11] MEDS ORDERED: Budesonide 0.25 MG/2 ML NEB INH PRN (11:23)
[2023-11-11] MEDS ORDERED: Ipratropium/Albuterol 3 ML NEB NEB PRN (11:26)
[2023-11-11 15:50] VITALS: BP 132/78; TEMP 99.1
== END 2023-11-11 16:00 | disposition home or self-care (01) | DRG 177 ==
LOC: ERS 13:28 → IMCU/EMU 18:11 → OBSVTOIN 22:00 → T4-B 11-11 05:55
PROVIDERS: ADMIT Student in an Organized Health Care Education/Training Program; ATTEND Student in an Organized Health Care Education/Training Program
PROC: 5A09357 Assistance with Respiratory Ventilation, Less than 24 Consecutive Hours, Continuous Positive Airway Pressure (ICD-10-PCS; principal; 2023-11-09)
DX: J69.0 Pneumonitis due to inhalation of food and vomit (principal); G93.41 Metabolic encephalopathy; J96.01 Acute respiratory failure with hypoxia; J96.02 Acute respiratory failure with hypercapnia; E87.20 Acidosis, unspecified; J44.1 Chronic obstructive pulmonary disease with (acute) exacerbation; F02.84 Dementia in other diseases classified elsewhere, unspecified severity, with anxiety; G20.A1 Parkinson's disease without dyskinesia, without mention of fluctuations; I50.9 Heart failure, unspecified; Z66 Do not resuscitate; G47.00 Insomnia, unspecified; E11.9 Type 2 diabetes mellitus without complications; Z88.8 Allergy status to other drugs, medicaments and biological substances; Z88.0 Allergy status to penicillin; Z91.041 Radiographic dye allergy status; Z91.048 Other nonmedicinal substance allergy status; Z79.84 Long term (current) use of oral hypoglycemic drugs; Z79.899 Other long term (current) drug therapy; Z90.710 Acquired absence of both cervix and uterus; Z90.49 Acquired absence of other specified parts of digestive tract; Z87.891 Personal history of nicotine dependence; I25.2 Old myocardial infarction
CPT/HCPCS: 36415; 36416; 51701; 70450; 71045; 71250; 80048; 80053; 81001; 82805; 83605; 84443; 84484; 85025; 87040; 87086; 93005; 94640; 94660; 96360; 96361; G0378; J0692; J1650; J2919; J7512; J7620; J7626

== ENCOUNTER 2023-11-25 13:33 | Emergency (ER) | payer MEDICARE, MEDICAID ==
[2023-11-25 15:12] LABS: #Basophils 0.04 10x3/uL (0.0-0.2); %Basophils 0.4 % (0.0-1.0); %Eosinophils 2.8 % (0.0-10.0); %Lymphocytes 15.6 % (21.0-51.0); %Monocytes 7.5 % (0.0-10.0); %Neutrophils 73.3 % (42.0-75.0); Hematocrit 41.8 % (36.0-47.0); Hemoglobin 13.1 g/dL (12.0-16.0); Mean Corpuscular HGB CONC 31.3 g/dL (32.0-36.0); Mean Corpuscular Hemoglobin 30.5 pg (27.0-31.0); Mean Corpuscular Volume 97.4 fL (78.0-98.0); Mean Platelet Volume 10.7 fL (7.4-10.4); Platelet Count 194 10x3/uL (130-400); RBC Distribution Width 12.8 % (11.5-14.5); Red Blood Cell (RBC) Count 4.29 mill/uL (4.20-5.40)
[2023-11-25 15:28] LABS: ALT (SGPT) Less than 5 U/L (8-55); AST (SGOT) 17 U/L (5-34); Albumin 3.6 g/dL (3.4-4.8); Alkaline Phosphatase 97 U/L (40-110); Anion Gap 18 mmol/L (10-20); BUN (Urea Nitrogen) 33 mg/dL (9.8-20.1); Bilirubin, Total 0.6 mg/dL (0.2-1.2); Calc. Creatinine Clearance 0 mL/min (70-130); Carbon Dioxide 22 mmol/L (23-31); Chloride 106 mmol/L (98-107); Estimated GFR 70; Globulin 3.9 g/dL (2.4-3.5); Glucose 181 mg/dL (83-110); Lipase 11 U/L (8-78); Potassium 4.5 mmol/L (3.5-5.1); Protein, Total 7.5 g/dL (5.8-8.1); Sodium 141 mmol/L (136-145)
[2023-11-25 18:42] LABS: Lactic Acid 3.33 mmol/L (0.5-2.2)
[2023-11-25 19:37] LABS: Bacteria/HPF 4+ HPF (None Seen); Bilirubin Negative (Negative); Blood, Urine Negative (Negative); CAUTI Indications for Culture < 2yrs of age; Clarity Extra Turbid (Clear); Glucose, Urine (Dipstick) Normal (Negative); Ketone, Urine Negative (Negative); Leukocyte 500 Leu/uL (Negative); Nitrite 1+ (Negative); Protein, Urine (Dipstick) 600 mg/dL (Neg-Trace); Specific Gravity, Urine 1.014 (1.002-1.036); Squamous Epithelial None Seen HPF (0-3); Urobilinogen Normal mg/dL (Less than 2); WBC/HPF Greater than 50 HPF (0-3); pH, Urine 8.5 (5.0-9.0)
[2023-11-25 19:56] LABS: Triple Phosphate Crystal 1+ HPF (None Seen)
[2023-11-25 19:57] LABS: Urine Culture Reflex Yes Yes
[2023-11-25] MEDS ORDERED: cefTRIAXone (ROCEPHIN) 1 GM VIAL ONE ×2 (20:04→21:42)
[2023-11-25] MEDS ORDERED: Sodium Chloride 0.9% 100 ML ONE (20:04)
[2023-11-25] MEDS ORDERED: Azithromycin 250 MG TAB ONE (21:42)
[2023-11-25] MEDS ORDERED: Lidocaine 1% PF 5 ML VIAL ONE (21:42)
== END 2023-11-25 21:53 | disposition home or self-care (01) ==
LOC: ERS 13:33
DX: N39.0 Urinary tract infection, site not specified (principal); J69.0 Pneumonitis due to inhalation of food and vomit; E87.20 Acidosis, unspecified; I25.2 Old myocardial infarction; E11.9 Type 2 diabetes mellitus without complications
CPT/HCPCS: 71045; 80053; 81001; 83605; 83690; 85025; 87040; 87077; 87086; J0696; 36415; 51701; 87186; 96372

== ENCOUNTER 2023-11-30 17:40 | Inpatient (IN) | payer MEDICARE, MEDICAID ==
[2023-11-30 18:55] LABS: #Basophils 0.03 10x3/uL (0.0-0.2); %Basophils 0.4 % (0.0-1.0); %Eosinophils 5.4 % (0.0-10.0); %Lymphocytes 18.7 % (21.0-51.0); %Monocytes 6.6 % (0.0-10.0); %Neutrophils 68.5 % (42.0-75.0); Hematocrit 36.2 % (36.0-47.0); Hemoglobin 11.7 g/dL (12.0-16.0); Mean Corpuscular HGB CONC 32.3 g/dL (32.0-36.0); Mean Corpuscular Hemoglobin 30.5 pg (27.0-31.0); Mean Corpuscular Volume 94.5 fL (78.0-98.0); Mean Platelet Volume 10.5 fL (7.4-10.4); Platelet Count 231 10x3/uL (130-400); RBC Distribution Width 12.6 % (11.5-14.5); Red Blood Cell (RBC) Count 3.83 mill/uL (4.20-5.40)
[2023-11-30 19:20] LABS: ALT (SGPT) 6 U/L (8-55); AST (SGOT) 14 U/L (5-34); Albumin 3.2 g/dL (3.4-4.8); Alkaline Phosphatase 85 U/L (40-110); Anion Gap 16 mmol/L (10-20); BUN (Urea Nitrogen) 31 mg/dL (9.8-20.1); Bilirubin, Total 0.4 mg/dL (0.2-1.2); Calc. Creatinine Clearance 0 mL/min (70-130); Calcium 9.1 mg/dL (7.8-10.44); Carbon Dioxide 22 mmol/L (23-31); Chloride 105 mmol/L (98-107); Estimated GFR 71; Globulin 3.3 g/dL (2.4-3.5); Glucose 203 mg/dL (83-110); Potassium 4.6 mmol/L (3.5-5.1); Protein, Total 6.5 g/dL (5.8-8.1); Sodium 138 mmol/L (136-145); Troponin I 0.084 ng/mL (< 0.028)
[2023-11-30 19:31] LABS: Bacteria/HPF None Seen HPF (None Seen); Bilirubin Negative (Negative); Blood, Urine 1+ (Negative); CAUTI Indications for Culture Dysuria,urgency,freq; Clarity Clear (Clear); Glucose, Urine (Dipstick) 30 mg/dL (Negative); Ketone, Urine Negative (Negative); Leukocyte 500 Leu/uL (Negative); Nitrite Negative (Negative); Protein, Urine (Dipstick) Negative (Neg-Trace); Specific Gravity, Urine 1.022 (1.002-1.036); Squamous Epithelial 0-3 HPF (0-3); Urobilinogen Normal mg/dL (Less than 2); WBC/HPF 21-50 HPF (0-3); pH, Urine 5.5 (5.0-9.0)
[2023-11-30 19:33] LABS: Urine Culture Reflex Yes Yes
[2023-11-30] MEDS ORDERED: LevoFLOXacin 750 mg/D5W 150 ml Premix Bag ONE (19:47)
[2023-11-30] MEDS ORDERED: Insulin Lispro 100 UNIT/ML 10 ML VIAL SC PRN ×2 (20:50)
[2023-11-30] MEDS ORDERED: Dextrose 5% in Water 1,000 ML IV PRN (20:50)
[2023-11-30] MEDS ORDERED: Dextrose 50% Abboject 50 ML SYRINGE SLOW IVP PRN (20:50)
[2023-11-30] MEDS ORDERED: Glucagon 1 MG/ML KIT IM PRN (20:50)
[2023-11-30 22:24] LABS: Lactic Acid 2.76 mmol/L (0.5-2.2)
[2023-11-30] MEDS ORDERED: Lorazepam 2 MG/ML VIAL SLOW IVP PRN (22:48)
[2023-11-30] MEDS ORDERED: Lorazepam 2 MG/ML VIAL ONE (23:02)
[2023-12-01] MEDS ORDERED: Acetaminophen 650 MG Suppository PR PRN (00:31)
[2023-12-01] MEDS ORDERED: Scopolamine 1 mg/72 hour Patch TD PRN (00:31)
[2023-12-01] MEDS ORDERED: Ipratropium/Albuterol 3 ML NEB NEB PRN (01:00)
[2023-12-01] MEDS: Morphine 2 MG/ML VIAL SLOW IVP PRN (01:20)
[2023-12-01 01:28] VITALS: BMI 25.7
[2023-12-01] MEDS: Vancomycin (BATCH) 1.5 GM in Premix 1 BAG IVPB SCH (02:19)
[2023-12-01 06:10] LABS: #Basophils 0.03 10x3/uL (0.0-0.2); %Basophils 0.5 % (0.0-1.0); %Eosinophils 5.6 % (0.0-10.0); %Neutrophils 61.4 % (42.0-75.0); Hematocrit 34.1 % (36.0-47.0); Mean Corpuscular HGB CONC 32.3 g/dL (32.0-36.0); Mean Corpuscular Hemoglobin 30.7 pg (27.0-31.0); Mean Corpuscular Volume 95.3 fL (78.0-98.0); Mean Platelet Volume 10.5 fL (7.4-10.4); Platelet Count 206 10x3/uL (130-400); RBC Distribution Width 12.6 % (11.5-14.5); Red Blood Cell (RBC) Count 3.58 mill/uL (4.20-5.40)
[2023-12-01 07:07] LABS: Lactic Acid 0.89 mmol/L (0.5-2.2)
[2023-12-01 07:17] LABS: ALT (SGPT) 8 U/L (8-55); AST (SGOT) 9 U/L (5-34); Albumin 2.8 g/dL (3.4-4.8); Alkaline Phosphatase 76 U/L (40-110); Anion Gap 11 mmol/L (10-20); BUN (Urea Nitrogen) 21 mg/dL (9.8-20.1); Bilirubin, Total 0.5 mg/dL (0.2-1.2); Calc. Creatinine Clearance 65 mL/min (70-130); Calcium 8.4 mg/dL (7.8-10.44); Carbon Dioxide 25 mmol/L (23-31); Chloride 111 mmol/L (98-107); Estimated GFR 86; Globulin 2.7 g/dL (2.4-3.5); Glucose 160 mg/dL (83-110); Potassium 4.1 mmol/L (3.5-5.1); Protein, Total 5.5 g/dL (5.8-8.1); Sodium 143 mmol/L (136-145)
[2023-12-01] MEDS: cefTRIAXone\\ROCEPHIN 1 GM in Sodium Chloride 0.9% 100 ML IVPB SCH (11:32)
[2023-12-01] MEDS: FLU (Fluad Triv) TS24-25 (65UP)/MF59C/PF 45 MCG/0.5 ML Syringe IM ONE (12:08)
[2023-12-01] MEDS ORDERED: Vancomycin (BATCH) 1.25 GM in Premix 1 BAG IVPB SCH (21:00)
[2023-12-02] MEDS: cefTRIAXone\\ROCEPHIN 1 GM in Sodium Chloride 0.9% 100 ML IVPB SCH (08:27)
[2023-12-02] MEDS ORDERED: LevoFLOXacin 750 mg/D5W 750 MG in Premix 1 BAG IVPB SCH (09:00)
[2023-12-02 12:24] VITALS: BP 149/75; TEMP 98.2
== END 2023-12-02 12:35 | disposition hospice, home (50) | DRG 871 ==
LOC: ERS 17:40 → T4-B 20:50
PROVIDERS: ADMIT Emergency Medicine; ATTEND Emergency Medicine
DX: A41.9 Sepsis, unspecified organism (principal); G93.41 Metabolic encephalopathy; J18.9 Pneumonia, unspecified organism; J69.0 Pneumonitis due to inhalation of food and vomit; N39.0 Urinary tract infection, site not specified; R65.20 Severe sepsis without septic shock; G20.A1 Parkinson's disease without dyskinesia, without mention of fluctuations; J44.9 Chronic obstructive pulmonary disease, unspecified; I50.9 Heart failure, unspecified; Z66 Do not resuscitate; F02.80 Dementia in other diseases classified elsewhere, unspecified severity, without behavioral disturbance, psychotic disturbance, mood disturbance, and anxiety; E11.9 Type 2 diabetes mellitus without complications; Z79.899 Other long term (current) drug therapy; Z88.0 Allergy status to penicillin; Z91.048 Other nonmedicinal substance allergy status; Z90.710 Acquired absence of both cervix and uterus; Z98.890 Other specified postprocedural states; Z51.5 Encounter for palliative care
CPT/HCPCS: 36415; 51701; 70450; 71045; 80053; 81001; 83605; 84484; 85025; 87040; 87086; 93005; 96374; 96375; J0696; J1956; J2060; J2272; J3370